=== PATIENT | female | born 1970 ===

== ENCOUNTER → 2020-06-17 14:59 | Outpatient (BNVA) | payer OTHER, SELFPAY | PROVIDERS: PCP Internal Medicine; Referring Provider Internal Medicine; Visit Provider Internal Medicine | DX: Z95.2 Presence of prosthetic heart valve (principal); Z51.81 Encounter for therapeutic drug level monitoring; Z79.01 Long term (current) use of anticoagulants | CPT/HCPCS: 85610; 99211 ==

== ENCOUNTER → 2020-06-25 08:27 | Outpatient (BNVA) | payer OTHER, SELFPAY | PROVIDERS: PCP Internal Medicine; Visit Provider Internal Medicine | DX: Z95.2 Presence of prosthetic heart valve (principal); Z51.81 Encounter for therapeutic drug level monitoring; Z79.01 Long term (current) use of anticoagulants | CPT/HCPCS: 85610; 99211 ==

== ENCOUNTER → 2020-07-09 09:57 | Outpatient (BNVA) | payer OTHER, SELFPAY | PROVIDERS: PCP Internal Medicine; Visit Provider Internal Medicine | DX: Z95.2 Presence of prosthetic heart valve (principal); Z51.81 Encounter for therapeutic drug level monitoring; Z79.01 Long term (current) use of anticoagulants | CPT/HCPCS: 85610; 99211 ==

== ENCOUNTER → 2020-07-23 07:59 | Outpatient (BNVA) | payer OTHER, SELFPAY | PROVIDERS: PCP Internal Medicine; Visit Provider Internal Medicine | DX: Z95.2 Presence of prosthetic heart valve (principal); Z51.81 Encounter for therapeutic drug level monitoring; Z79.01 Long term (current) use of anticoagulants | CPT/HCPCS: 85610; 99211 ==

== ENCOUNTER → 2020-07-29 07:44 | Outpatient (BNVA) | payer OTHER, SELFPAY | PROVIDERS: PCP Internal Medicine; Visit Provider Internal Medicine | DX: Z95.2 Presence of prosthetic heart valve (principal); Z51.81 Encounter for therapeutic drug level monitoring; Z79.01 Long term (current) use of anticoagulants | CPT/HCPCS: 85610; 99211 ==

== ENCOUNTER → 2020-08-27 07:46 | Outpatient (BNVA) | payer OTHER, SELFPAY | PROVIDERS: PCP Internal Medicine; Visit Provider Internal Medicine | DX: Z95.2 Presence of prosthetic heart valve (principal); Z51.81 Encounter for therapeutic drug level monitoring; Z79.01 Long term (current) use of anticoagulants | CPT/HCPCS: 85610; 99211 ==

== ENCOUNTER → 2020-09-03 09:10 | Outpatient (BNVA) | payer OTHER, SELFPAY | PROVIDERS: PCP Internal Medicine; Visit Provider Internal Medicine | DX: Z95.2 Presence of prosthetic heart valve (principal); Z51.81 Encounter for therapeutic drug level monitoring; Z79.01 Long term (current) use of anticoagulants | CPT/HCPCS: 85610; 99211 ==

== ENCOUNTER → 2020-09-10 07:49 | Outpatient (BNVA) | payer OTHER, SELFPAY | PROVIDERS: PCP Internal Medicine; Visit Provider Internal Medicine | DX: Z95.2 Presence of prosthetic heart valve (principal); Z51.81 Encounter for therapeutic drug level monitoring; Z79.01 Long term (current) use of anticoagulants | CPT/HCPCS: 85610; 99211 ==

== ENCOUNTER 2020-09-10 08:05 | Emergency (ER) | payer OTHER, SELFPAY ==
[2020-09-10 08:15] VITALS: BP 129/69; PULSE 76; RESP 18; TEMP 36.1; O2SAT 100; BMI 23.0
--- NOTE | 2020-09-10 09:25 | XR_ITS ---
EXAMINATION: XR CHEST CLINICAL INFORMATION: Intermittent chest pain. COMPARISON: None TECHNIQUE: 2 views of the chest were obtained. FINDINGS: No significant abnormality is noted involving the heart, lungs, mediastinum, bony thorax or soft tissues. XR/XR chest 2V IMPRESSION: No acute cardiopulmonary process.
--- NOTE | 2020-09-10 09:26 | ECG_ITS ---
Test Reason : CHEST PAIN Blood Pressure : / mmHG Vent. Rate : 078 BPM Atrial Rate : 078 BPM P-R Int : 148 ms QRS Dur : 086 ms QT Int : 378 ms P-R-T Axes : 000 068 026 degrees QTc Int : 430 ms Unusual P axis, possible ectopic atrial rhythm Voltage criteria for left ventricular hypertrophy Abnormal ECG When compared with ECG of 27-APR-2020 03:49, No significant changes seen Referred By: Kalli Smith Electronically Signed By:BILL HUMPHREY
[2020-09-10 10:03] LABS: Basophils Percent Auto 0.2 % (0-2); Eosinophils Absolute Auto 0.2 X10*3/uL (0.0-0.4); Eosinophils Percent Auto 4.3 % (0-4); Hematocrit 38.5 % (37-47); Hemoglobin 12.5 g/dl (12.0-16.0); Imm Gran Abs Auto 0.01 X10*3/uL (0.00-0.03); Imm Gran Pct Auto 0.2 % (0.0-0.4); Lymphocytes Absolute Auto 1.4 X10*3/uL (1.2-4.9); Lymphocytes Percent Auto 25.4 % (20-40); MANUAL DIFF FLAG NO; Mean Corpuscular HGB Conc 32.5 g/dl (31.0-35.0); Mean Corpuscular Hemoglobin 28.2 pg (27.0-33.0); Mean Corpuscular Volume 86.9 fL (80-98); Mean Platelet Volume 9.2 fL (9.4-12.3); Monocytes Absolute Auto 0.4 X10*3/uL (0.1-1.2); Monocytes Percent Auto 7.1 % (2-11); Neutrophils Absolute Auto 3.5 X10*3/uL (2.0-8.3); Neutrophils Percent Auto 62.8 % (45-73); Platelet Count 196 X10*3/uL (160-400); Red Blood Count 4.43 X10*6/uL (4.20-5.50); Red Cell Distribution Width 15.2 % (11.0-16.0); White Blood Count 5.6 X10*3/uL (4.8-10.8)
[2020-09-10 10:07] LABS: Appearance Urine CLEAR; Color Urine YELLOW; Glucose Urine UA NEG (NEG); Leukocyte Esterase Urine NEG (NEG); Nitrite Urine NEG (NEG); PH 6.5 (5.0-8.0); Specific Gravity - Urine 1.015 (1.005-1.025); Urine Blood TRACE (NEG); Urine Ketones NEG (NEG); Urine Protein NEG (NEG-TRACE)
[2020-09-10 10:12] LABS: INTERNATIONAL NORM RATIO 2.8 (0.9-1.1); Prothrombin Time 33.3 SEC (10.8-13.0)
[2020-09-10 10:15] LABS: Partial Thromboplastin Time 58.4 SEC (24.1-38.0)
[2020-09-10] MEDS: 0.9 % Sodium Chloride 1,000 ML 999 ML IVCONT (10:20)
[2020-09-10 10:39] LABS: B Type Natriuretic Peptide 67 pg/mL (<100); Troponin-I High Sensitivity < 3.5 ng/L (<3.5-17.0)
[2020-09-10 10:40] LABS: Mucus Urine 1+ /LPF; RBC Urine 0-2 /HPF (0); Squamous Epithelial Cell Urine 2+ /LPF; WBC Urine 0 /HPF (0-4)
[2020-09-10 10:41] LABS: Alanine Aminotransferase 29 U/L (0-31); Albumin Level 4.3 g/dL (3.5-5.0); Alkaline Phosphatase 98 U/L (39-117); Anion Gap 14 (12-20); Aspartate Amino Transferase 26 U/L (5-31); Bilirubin Direct 0.3 mg/dL (0.0-0.5); Bilirubin Total 0.7 mg/dL (0.0-1.0); Blood Urea Nitrogen 10 mg/dL (9-16); Calcium 8.8 mg/dL (8.4-10.2); Carbon Dioxide 22 mmol/L (22-29); Chloride 109 mmol/L (96-108); Creatinine Clr Calc Pharmacy 76.7; Estimated Glomerular Filt Rate > 60; Glucose Random 76 mg/dL (60-115); Magnesium 2.2 mg/dL (1.6-2.6); Sodium 141 mmol/L (135-145); Total Protein 7.3 g/dL (6.5-8.0)
[2020-09-10 10:48] VITALS: BP 127/63; PULSE 73
--- NOTE | 2020-09-10 10:58 | ED_ITS ---
HPI - Chest Pain General Chief Complaint: Chest Pain Stated Complaint: chest pain Time Seen by Provider: 09/10/20 09:16 Source: patient Mode of arrival: ambulatory Limitations: no limitations History of Present Illness HPI narrative: 50yoF c PMHx of DE, Mechanical heart valve on Coumadin, CVA, leukemia and Sjorgen's disease presenting to the ED c c/o intermittent left sided chest pain achy in sensation only last a few second which has occured 2-3 times since yesterday. Today it occurred while [facility] speaking to the nurse therefore they instructed her to come to the ER for further evaluation and treatment. Patient also reports 3 days ago she had an episode of dizziness while she was cleaning her house which resolved shortly after. Denies any other symptoms associated to the chest pain and dizziness. Related Data Previous Rx's Medication Instructions Recorded warfarin 5 mg tablet 5 mg PO DAILY #90 tab 06/17/20 Allergies Allergy/AdvReac Type Severity Reaction Status Date / Time cephalexin [From KEFLEX] Allergy Severe ANGIOEDEMA Verified 08/27/20 07:53 Penicillins [PCN] Allergy Severe DIFF Verified 08/27/20 07:53 BREATHING pilocarpine [PILOCARPINE] Allergy Severe DIFFICULTY Verified 08/27/20 07:53 BREATHING prochlorperazine Allergy Severe DIFFICULTY Verified 08/27/20 07:53 [From COMPAZINE] BREATHING Review of Systems Review of Systems: Constitutional : No Fever, No Chills, No Night Sweats, No Fatigue, No Malaise ENT/Mouth : No Ear Pain, No Nasal Congestion, No sore throat Eyes: No Eye Pain, No Swelling, No Vision Changes Cardiovascular : + Intermittent Chest pain, No SOB, no Dyspnea on Exertion, No Orthopnea, No Edema, No extremity swelling, No Palpitations Respiratory : No Cough, No Sputum, No Wheezing, No Dyspnea Gastrointestinal : No Nausea, No Vomiting, No Diarrhea, No abdominal Pain Genitourinary : No irregular bleeding, No Dysuria Musculoskeletal : No joint pain, No Myalgias, No Joint Swelling Skin : No Skin Lesions, No rash Neuro : No Weakness, No Numbness, No Paresthesias, No Loss of Consciousness, No Dizziness at this time, No Headache Yes all other systems are reviewed and are negative [facility] Past Medical History Attestation statement: The following information was validated with the patient. Medical History delivery delivered H/O Sjogren's disease Leukemia Myocardial infarct Stroke Surgical History History of heart surgery Social History Social History Advance Directives: No Advance Directives Information Provided: Yes Physical Exam Vital Signs: Vital Signs: Last Vital Signs Temp 96.9 F 09/10/20 08:15 Pulse 73 09/10/20 10:48 Resp 18 09/10/20 08:15 BP 127/63 09/10/20 10:48 Pulse Ox 100 09/10/20 08:15 Body Mass Index 23.0 vital signs have been reviewed as normal and appeared to be correct. Blood pr essure normal. Heart rate normal. Respiration rate normal. Temperature normal. Oxygen saturation normal. Appearance: Alert. Oriented X3. No acute distress. Head: Normal external exam. Normocephalic. Atraumatic. No Santo signs noted. No raccoon eyes noted Eyes: PERRLA. EOMI. Conjunctiva and sclera normal. Eyelids normal. ENT: EAC normal. TM's Normal. Pharynx normal. Uvula midline. Moist mucous membranes. Neck: Normal inspection. Neck supple. FROM. No adenopathy. No meningeal signs. CVS: Normal heart rate and rhythm. Heart sound normal. No murmurs noted. Pulses normal throughout. Respiratory: No respiratory distress. Painless inspiration. Breath sounds n ormal. No wheezes/rales/rhonchi noted. Chest nontender. No accessory muscle usage noted or decreased air movement noted. Abdomen: Soft and nontender. Bowel sounds normal in all 4 quadrants. No diste ntion noted. No organomegaly noted. No visible injury noted. Back: Full range of motion noted. Skin: Skin warm and dry. Normal skin color. Normal skin turgor. No rashes/lesions/lacerations noted. Extremities: No lower extremity edema. No calf tenderness. Extremities exhibit normal range of motion. Extremities nontender. Neuro: Oriented X 3. No motor deficit. No sensory deficit. Reflexes normal. Course Course Course Narrative: 9:25AM - 50yoF c PMHx of DE, Mechanical heart valve on Coumadin, CVA, leukemia and Sjorgen's disease presenting to the ED c c/o intermittent left sided chest pain achy in sensation only last a few second which has occured 2-3 times since yesterday and dizziness x 3 days ago resolved at this time. - Concern for DE vs muscular strain - Plan: Labs, 2 sets of Troponin, CXR, EKG then re-evaluated Reevaluation(s) Reevaluation #1: - All labs WNL. CXR WNL. EKG NSR no acute ischemic changes noted. - therefore repeat troponin For 12:54pm will re-evaluate then. Patient continues to be chest pain-free. Time: 11:12 Reevaluation #2: Repeat troponin less than 3.5 therefore negative delta and patient continues to be chest pain-free therefore will DC home with instructions to follow-up with cleat layer and PCP and to return if any new or worsening symptoms and to continue taking prescribed medications as previously prescribed. Patient and agrees the plan. Time: 13:48 [facility] - Chest Pain Medical Records Data Attestation: I reviewed the patient's medical records. Lab Data Attestation: I reviewed the patient's lab results. Result diagrams: 09/10/20 09:54 09/10/20 09:54 Labs: Lab Results 09/10/20 09/10/20 09/10/20 Range/Units 09:49 09:54 09:54 WBC 5.6 (4.8-10.8) X10*3/uL RBC 4.43 (4.20-5.50) X10*6/uL Hgb 12.5 (12.0-16.0) g/dl Hct 38.5 (37-47) % MCV 86.9 (80-98) fL MCH 28.2 (27.0-33.0) pg MCHC 32.5 (31.0-35.0) g/dl RDW 15.2 (11.0-16.0) % Plt Count 196 (160-400) X10*3/uL MPV 9.2 L (9.4-12.3) fL Immature Gran % (Auto) 0.2 (0.0-0.4) % Neut % (Auto) 62.8 (45-73) % Lymph % (Auto) 25.4 (20-40) % Bradley % (Auto) 7.1 (2-11) % Eos % (Auto) 4.3 H (0-4) % Baso % (Auto) 0.2 (0-2) % Lymph # (Auto) 1.4 (1.2-4.9) X10*3/uL Bradley # (Auto) 0.4 (0.1-1.2) X10*3/uL Eos # (Auto) 0.2 (0.0-0.4) X10*3/uL Baso # (Auto) 0.0 (0.0-0.2) X10*3/uL Abs Immat Gran (auto) 0.01 (0.00-0.03) X10*3/uL Absolute Neuts (auto) 3.5 (2.0-8.3) X10*3/uL Absolute Nucleated RBC 0.000 (0.0-0.012) X10*3/uL Nucleated RBC % (auto) 0.0 (0.0-0.2) /100WBC PT (10.8-13.0) SEC INR (0.9-1.1) APTT (24.1-38.0) SEC Sodium 141 (135-145) mmol/L Potassium 4.0 (3.3-5.1) mmol/l Chloride 109 H (96-108) mmol/L Carbon Dioxide 22 (22-29) mmol/L Anion Gap 14 (12-20) BUN 10 (9-16) mg/dL Creatinine 0.71 (0.5-1.4) mg/dL Estim Creat Clear Calc 76.7 Estimated GFR > 60 Random Glucose 76 (60-115) mg/dL Calcium 8.8 (8.4-10.2) mg/dL Magnesium 2.2 (1.6-2.6) mg/dL Total Bilirubin 0.7 (0.0-1.0) mg/dL Direct Bilirubin 0.3 (0.0-0.5) mg/dL AST 26 (5-31) U/L ALT 29 (0-31) U/L Alkaline Phosphatase 98 (39-117) U/L Troponin I High Sens (<3.5-17.0) ng/L B-Natriuretic Peptide (<100) pg/mL Total Protein 7.3 (6.5-8.0) g/dL Albumin 4.3 (3.5-5.0) g/dL Urine Color YELLOW Urine Appearance CLEAR Urine pH 6.5 (5.0-8.0) Ur Specific [place] 1.015 (1.005-1.025) Urine Protein NEG (NEG-TRACE) MG/DL Urine Glucose (UA) NEG (NEG) MG/DL Urine Ketones NEG (NEG) MG/DL Urine Blood TRACE (NEG) Urine Nitrite NEG (NEG) Ur Leukocyte Esterase NEG (NEG) Urine RBC 0-2 (0) /HPF Urine WBC 0 (0-4) /HPF Ur Squamous Epith Cells 2+ /LPF Urine Bacteria NONE /LPF Urine Mucus 1+ /LPF 09/10/20 09/10/20 09/10/20 Range/Units 09:54 09:55 12:41 WBC (4.8-10.8) X10*3/uL RBC (4.20-5.50) X10*6/uL Hgb (12.0-16.0) g/dl Hct (37-47) % MCV (80-98) fL MCH (27.0-33.0) pg MCHC (31.0-35.0) g/dl RDW (11.0-16.0) % Plt Count (160-400) X10*3/uL MPV (9.4-12.3) fL Immature Gran % (Auto) (0.0-0.4) % Neut % (Auto) (45-73) % Lymph % (Auto) (20-40) % Bradley % (Auto) (2-11) % Eos % (Auto) (0-4) % Baso % (Auto) (0-2) % Lymph # (Auto) (1.2-4.9) X10*3/uL Bradley # (Auto) (0.1-1.2) X10*3/uL Eos # (Auto) (0.0-0.4) X10*3/uL Baso # (Auto) (0.0-0.2) X10*3/uL Abs Immat Gran (auto) (0.00-0.03) X10*3/uL Absolute Neuts (auto) (2.0-8.3) X10*3/uL Absolute Nucleated RBC (0.0-0.012) X10*3/uL Nucleated RBC % (auto) (0.0-0.2) /100WBC PT 33.3 H (10.8-13.0) SEC INR 2.8 H (0.9-1.1) APTT 58.4 H (24.1-38.0) SEC Sodium (135-145) mmol/L Potassium (3.3-5.1) mmol/l Chloride (96-108) mmol/L Carbon Dioxide (22-29) mmol/L Anion Gap (12-20) BUN (9-16) mg/dL Creatinine (0.5-1.4) mg/dL Estim Creat Clear Calc Estimated GFR Random Glucose (60-115) mg/dL Calcium (8.4-10.2) mg/dL Magnesium (1.6-2.6) mg/dL Total Bilirubin (0.0-1.0) mg/dL Direct Bilirubin (0.0-0.5) mg/dL AST (5-31) U/L ALT (0-31) U/L Alkaline Phosphatase (39-117) U/L Troponin I High Sens < 3.5 < 3.5 (<3.5-17.0) ng/L B-Natriuretic Peptide 67 (<100) pg/mL Total Protein (6.5-8.0) g/dL Albumin (3.5-5.0) g/dL Urine Color Urine Appearance Urine pH (5.0-8.0) Ur Specific [place] (1.005-1.025) Urine Protein (NEG-TRACE) MG/DL Urine Glucose (UA) (NEG) MG/DL Urine Ketones (NEG) MG/DL Urine Blood (NEG) Urine Nitrite (NEG) Ur Leukocyte Esterase (NEG) Urine RBC (0) /HPF Urine WBC (0-4) /HPF Ur Squamous Epith Cells /LPF Urine Bacteria /LPF Urine Mucus /LPF Imaging Data Chest x-ray: Attestation: I personally reviewed and interpreted this imaging study as follows: Radiologist's impression: IMPRESSION: No acute cardiopulmonary process. ECG Data ECG #1: Attestation: I personally reviewed and interpreted this ECG as follows: ECG interpretation date: 09/10/20 ECG interpretation time: 08:27 Interpretation: Normal sinus rhythm with a ventricular rate of 78 within normal OR interval normal QRS duration normal QT/QTC interval. No acute i schemic changes noted. Discharge Plan Discharge Clinical Impression: Atypical chest pain Patient Disposition: Home, Self-Care Instructions: Chest Pain (ED) Additional Instructions: INR today was 2.8. Please follow-up with your primary care provider and your cleat layer and continue taking your previously prescribed medications as prescribed. Return if any new or worsening symptoms. Prescriptions: No Action warfarin 5 mg tablet 5 mg PO DAILY Qty: 90 RF: 0 Referrals: Tu Grande MD [Primary Care Provider] - 2 days Maksim Hyman MD [Physician] - 2 days Stand Alone Forms: Work/School Release Interventions: ED Discharge Assessment Last Done: 09/10/20 13:39 Discharge Date/Time: 09/10/20 13:39
[2020-09-10 13:16] LABS: Troponin-I High Sensitivity < 3.5 ng/L (<3.5-17.0)
== END 2020-09-10 13:39 | disposition home or self-care (01) ==
PROVIDERS: Physician Assistant Medical; Emergency Provider Emergency Medicine Emergency Medical Services; PCP Internal Medicine
DX: R07.89 Other chest pain (principal); Z86.73 Personal history of transient ischemic attack (TIA), and cerebral infarction without residual deficits; Z79.01 Long term (current) use of anticoagulants; Z79.899 Other long term (current) drug therapy
CPT/HCPCS: 36415; 71046; 80048; 80076; 81001; 81003; 83735; 83880; 84484; 85025; 85610; 85730; 93005; 96360; 99283; 99284

== ENCOUNTER → 2020-09-19 08:10 | Outpatient (BNVA) | payer OTHER, SELFPAY | PROVIDERS: PCP Internal Medicine; Visit Provider Internal Medicine | DX: Z95.2 Presence of prosthetic heart valve (principal); Z51.81 Encounter for therapeutic drug level monitoring; Z79.01 Long term (current) use of anticoagulants | CPT/HCPCS: 85610; 99211 ==

== ENCOUNTER 2020-10-09 17:27 | Emergency (ER) | payer OTHER, SELFPAY | END 2020-10-09 19:30 | disposition left against medical advice (07) | PROVIDERS: Emergency Provider Emergency Medicine | DX: Z51.81 Encounter for therapeutic drug level monitoring (principal); Z79.01 Long term (current) use of anticoagulants ==

== ENCOUNTER → 2020-10-11 08:06 | Outpatient (BNVA) | payer OTHER, SELFPAY | PROVIDERS: PCP Internal Medicine; Visit Provider Internal Medicine | DX: Z95.2 Presence of prosthetic heart valve (principal); Z51.81 Encounter for therapeutic drug level monitoring; Z79.01 Long term (current) use of anticoagulants | CPT/HCPCS: 85610; 99211 ==

== ENCOUNTER → 2020-10-14 08:37 | Outpatient (BNVA) | payer OTHER, SELFPAY | PROVIDERS: PCP Internal Medicine; Visit Provider Internal Medicine | DX: Z95.2 Presence of prosthetic heart valve (principal); Z51.81 Encounter for therapeutic drug level monitoring; Z79.01 Long term (current) use of anticoagulants | CPT/HCPCS: 85610; 99211 ==

== ENCOUNTER 2021-04-25 08:05 | Emergency (ER) | payer OTHER, SELFPAY ==
--- NOTE | ~2021-04-25 | XR_ITS ---
EXAMINATION: XR ELBOW, RIGHT CLINICAL INFORMATION: Right elbow pain, worse with extension COMPARISON: None TECHNIQUE: AP, lateral, and oblique views of the right elbow. FINDINGS: Bony mineralization appears normal. There is no fracture, dislocation, destructive process, or arthropathy. No joint narrowing or erosive change. No definite intracapsular effusion. No spurring from the epicondyles or olecranon. XR/XR elbow RT min 3V IMPRESSION: Unremarkable right elbow.
[2021-04-25 08:26] VITALS: BP 99/70; PULSE 80; RESP 18; TEMP 36.6; O2SAT 100; BMI 24.2
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
== END 2021-04-25 10:03 | disposition home or self-care (01) ==
PROVIDERS: Emergency Provider Emergency Medicine; PCP Internal Medicine
DX: S53.401A Unspecified sprain of right elbow, initial encounter (principal); M25.521 Pain in right elbow; X50.0XXA Overexertion from strenuous movement or load, initial encounter; Y93.9 Activity, unspecified; Y92.9 Unspecified place or not applicable; Y99.0 Civilian activity done for income or pay; Z79.899 Other long term (current) drug therapy; Z79.01 Long term (current) use of anticoagulants
CPT/HCPCS: 73080; 99282; 99283

== ENCOUNTER 2021-06-10 16:38 | Emergency (ER) | payer OTHER, SELFPAY ==
--- NOTE | ~2021-06-10 | CT_ITS ---
EXAMINATION: CT HEAD WITHOUT CONTRAST CLINICAL INFORMATION: Double vision. Concern for a stroke COMPARISON: CT head April 27, 2020 TECHNIQUE: Contiguous axial imaging was performed from the skull base to vertex without intravenous administration of contrast. Coronal and sagittal reformatted images are performed at the CT scanner This CT examination was performed using dose optimization techniques as appropriate, variously including the following: *Automated exposure control *Adjustment of mA and/or kV according to patient size (this includes techniques or standardized protocols for targeted exams where dose is matched to indication/reason for exam; i.e. extremities or head) *Use of iterative reconstruction technique DLP: 627 mGy-cm FINDINGS: There is no evidence of acute intracranial hemorrhage or territorial infarction. No abnormal mass effect or midline shift is seen. [place] to white matter differentiation is well preserved. No extra-axial fluid collections are identified. The ventricles are normal in size. There is no abnormal attenuation within the brain parenchyma. The osseous structures and soft tissues are normal. There is moderate scattered sinus mucosal thickening in the ethmoid sinuses bilateral. The mastoid air cells and middle ear cavities are normally aerated. CT/CT head/brain wo con IMPRESSION: No acute intracranial pathology.
--- NOTE | ~2021-06-10 | MR_ITS ---
EXAMINATION: MR BRAIN WITHOUT CONTRAST CLINICAL INFORMATION: Double vision. Occipital stroke. COMPARISON: CT head from 06/10/2021. TECHNIQUE: MRI of the brain was obtained using routine sequences without contrast. FINDINGS: No focal restricted diffusion is demonstrated to suggest acute or subacute cerebral ischemia. No evidence of acute or chronic hemorrhagic products on heme-sensitive imaging. Scattered periventricular and deep white matter T2 FLAIR hyperintensities. Multiple chronic lacunar infarcts of the cerebellum. The ventricles are normal in morphology and size. No abnormal mass effect. No midline shift. Normal appearance of the pituitary gland. Normal positioning of the cerebellar tonsils. Normal arterial and venous vascular flow voids are present. Normal, homogeneous marrow signal. Fatty atrophy of the left parotid gland. Moderate mucosal thickening of the paranasal sinuses. No signal abnormalities within the mastoids. MR/MR head/brain wo con IMPRESSION: 1. No acute intracranial abnormalities. 2. Multiple chronic lacunar infarcts of the cerebellum. Nonspecific white matter changes most commonly seen with mild underlying microangiopathy.
--- NOTE | ~2021-06-10 | XR_ITS ---
EXAMINATION: XR CHEST CLINICAL INFORMATION: Stroke like symptoms COMPARISON: Chest x-ray on 09/10/2020 TECHNIQUE: Frontal view of the chest was obtained. FINDINGS: No significant abnormality is noted involving the heart, lungs, mediastinum, bony thorax or soft tissues. There is been prior median sternotomy. There is an aortic valve replacement. XR/XR chest 1V IMPRESSION: No acute disease.
[2021-06-10 16:56] VITALS: BP 145/69; PULSE 74; RESP 16; TEMP 36.7; O2SAT 99; BMI 23.7
[2021-06-10 17:49] VITALS: BP 169/76; PULSE 75; RESP 16; O2SAT 99
--- NOTE | 2021-06-10 17:52 | ECG_ITS ---
Test Reason : NEURO SYMPTOMS Blood Pressure : / mmHG Vent. Rate : 071 BPM Atrial Rate : 071 BPM P-R Int : 156 ms QRS Dur : 090 ms QT Int : 410 ms P-R-T Axes : 038 055 045 degrees QTc Int : 445 ms Normal sinus rhythm Minimal voltage criteria for LVH, may be normal variant Borderline ECG When compared with ECG of 10-SEP-2020 08:27, Sinus rhythm has replaced Ectopic atrial rhythm Referred By: Myra Novoa Electronically Signed By:MARV GARCIA
--- NOTE | 2021-06-10 17:57 | ED_ITS ---
HPI - Neuro Symptoms/Deficit General Chief Complaint: Neuro Symptoms/Deficit Stated Complaint: Double vision Time Seen by Provider: 06/10/21 17:52 Source: patient Mode of arrival: ambulatory Limitations: no limitations History of Present Illness HPI Narrative: 51-year-old female came in for evaluation of double vision. Symptoms started 3 days ago as a double vision patient could not tell with which eye, symptoms is intermittent comes and goes, no relieving factor, no worsening Factor, associated with headache but no speech issue, no weakness, no numbness. Patient stated that the symptoms started 3 days ago and a half, have been today while she is in the waiting room waiting to be seen. Now patient is asympt omatic Related Data Home Medications Medication Instructions Recorded Confirmed hydroxyzine HCl 50 mg tablet mg PO 10/14/20 10/14/20 metoprolol succinate 50 mg 50 mg PO DAILY 10/14/20 10/14/20 tablet,extended release 24 hr nilotinib 150 mg capsule 300 mg PO BID 10/14/20 10/14/20 Previous Rx's Medication Instructions Recorded warfarin 5 mg tablet 5 mg PO DAILY #90 tab 06/17/20 acetaminophen 300 mg-codeine 30 mg 1 tab PO Q8H PRN #10 tab 04/25/21 tablet lidocaine HCl 4 % topical cream 1 appl TOPICAL BID PRN #120 g 04/25/21 (Aspercreme (lidocaine HCl)) Allergies Allergy/AdvReac Type Severity Reaction Status Date / Time cephalexin [From KEFLEX] Allergy Severe ANGIOEDEMA Verified 10/11/20 08:09 Penicillins [PCN] Allergy Severe DIFF Verified 10/11/20 08:09 BREATHING pilocarpine [PILOCARPINE] Allergy Severe DIFFICULTY Verified 10/11/20 08:09 BREATHING prochlorperazine Allergy Severe DIFFICULTY Verified 10/11/20 08:09 [From COMPAZINE] BREATHING Review of Systems Review of Systems: All other systems are reviewed and are negative Constitutional: Reports as per HPI and Reports no additional constitutional complaints Eyes: Reports as per HPI and Reports no additional eye complaints Reports system reviewed and no additional complaints, except as documented Cardiovascular: Reports as per HPI and Reports no additional cardiovascular complaints Respiratory: Reports as per HPI and Reports no additional respiratory complaints Gastrointestinal: Reports as per HPI and Reports no additional gastrointestinal complaints Genitourinary: Reports no additional female genitourinary complaints Musculoskeletal: Reports no additional musculoskeletal complaints Skin/Breast: Reports system reviewed and no additional complaints, except as docu Psychiatric: Reports no additional psychiatric complaints Endocrine: Reports no additional endocrine complaints Hematologic/Lymphatic: Reports no additional hematologic/lymphatic complaints Allergic/Immunologic: Reports no additional allergic/immunologic complaints Reports system reviewed and no additional complaints, except as documented and Reports Abnormal speech present [facility] Past Medical History Medical History delivery delivered H/O Sjogren's disease Leukemia Myocardial infarct Stroke Surgical History History of heart surgery Social History Social History Patient Tobacco Use Status: Former Tobacco user Advance Directives: No Advance Directives Information Provided: No Patient : No Physical Exam Vital Signs: Vital Signs: Last Vital Signs Temp 98.0 F 06/10/21 16:56 Pulse 70 06/10/21 20:00 Resp 16 06/10/21 20:00 BP 135/69 06/10/21 20:00 Pulse Ox 100 06/10/21 20:00 Body Mass Index 23.7 Vital signs have been reviewed as appeared to be correct. Blood pressure elevated. Heart rate normal. Respiration rate normal. Temperature normal. Oxygen saturation normal. Appearance: Alert. Oriented X3. No acute distress. Head: Normal external exam. Normocephalic. Atraumatic. No [place] signs noted. No raccoon eyes noted Eyes: PERRLA. EOMI. Conjunctiva and sclera normal. Eyelids normal. Visual acuity is 20/25 on right, 20/25 on the left. IOP 13 in the right, IOP 12 on the left. ENT: TM's Normal. Pharynx normal. Uvula midline. Moist mucous membranes. No trismus noted. No drooling noted. No muffled voice noted. Neck: Normal inspection. Neck supple. FROM. No adenopathy. Thyroid Normal. No meningeal signs. No neck mass noted. CVS: Normal heart rate and rhythm. Heart sound normal. No murmurs noted. Pulses normal throughout. Respiratory: No respiratory distress. Painless inspiration. Breath sounds normal. No wheezes/rales/rhonchi noted. Chest nontender. No accessory muscle usage noted or decreased air movement noted. Abdomen: Soft and nontender. Bowel sounds normal in all 4 quadrants. No distention noted. No organomegaly noted. No visible injury noted. Back: No CVA tenderness. Full range of motion noted. Skin: Skin warm and dry. Normal skin color. Normal skin turgor. No rashes/lesions/lacerations noted. Extremities: No lower extremity edema. Extremities exhibit normal range of motion. Extremities nontender. Neuro: Oriented X 3. Cranial nerve exam: II-XII are grossly intact No motor deficit. No sensory deficit. Reflexes normal. Course Course Course Narrative: Assessment and plan. 51-year-old female came in with symptoms of intermittent diplopia for the past 3 days. There was no symptoms while patient in the ED, unremarkable eye exam/neuro exam, patient had a CT of the head and MRI of the head which showed no acute stroke. Patient with normal IOP glaucoma is not likely. Patient will be referred to Ophthalmology for further eye exam. MDM - Neuro Symptoms/Deficit Medical Records Attestation: I reviewed the patient's medical records. Lab Data Attestation: I reviewed the patient's lab results. Result diagrams: 06/10/21 19:48 06/10/21 19:48 Labs: Lab Results 06/10/21 06/10/21 06/10/21 Range/Units 19:48 19:48 19:48 WBC 5.7 (4.8-10.8) X10*3/uL RBC 4.01 L (4.20-5.50) X10*6/uL Hgb 11.2 L (12.0-16.0) g/dl Hct 33.7 L (37-47) % MCV 84.0 (80-98) fL MCH 27.9 (27.0-33.0) pg MCHC 33.2 (31.0-35.0) g/dl RDW 16.7 H (11.0-16.0) % Plt Count 219 (160-400) X10*3/uL MPV 9.4 (9.4-12.3) fL Immature Gran % (Auto) 0.2 (0.0-0.4) % Neut % (Auto) 56.1 (45-73) % Lymph % (Auto) 28.7 (20-40) % [place] % (Auto) 8.1 (2-11) % Eos % (Auto) 6.5 H (0-4) % Baso % (Auto) 0.4 (0-2) % Lymph # (Auto) 1.6 (1.2-4.9) X10*3/uL [place] # (Auto) 0.5 (0.1-1.2) X10*3/uL Eos # (Auto) 0.4 (0.0-0.4) X10*3/uL Baso # (Auto) 0.0 (0.0-0.2) X10*3/uL Abs Immat Gran (auto) 0.01 (0.00-0.03) X10*3/uL Absolute Neuts (auto) 3.2 (2.0-8.3) X10*3/uL Absolute Nucleated RBC 0.000 (0.0-0.012) X10*3/uL Nucleated RBC % (auto) 0.0 (0.0-0.2) /100WBC Sodium 141 (135-145) mmol/L Potassium 4.0 (3.3-5.1) mmol/L Chloride 109 H (96-108) mmol/L Carbon Dioxide 22 (22-29) mmol/L Anion Gap 14 (12-20) BUN 10 (9-16) mg/dL Creatinine 0.71 (0.5-1.4) mg/dL Estim Creat Clear Calc 75.7 Estimated GFR > 60 Random Glucose 87 (60-115) mg/dL Calcium 8.8 (8.4-10.2) mg/dL Total Bilirubin 0.6 (0.0-1.0) mg/dL Direct Bilirubin 0.2 (0.0-0.5) mg/dL AST 31 (5-31) U/L ALT 42 H (0-31) U/L Alkaline Phosphatase 126 H D (39-117) U/L Troponin I High Sens < 3.5 (<3.5-17.0) ng/L Total Protein 7.0 (6.5-8.0) g/dL Albumin 4.1 (3.5-5.0) g/dL Lipase 40 (8-78) U/L Imaging Data Chest x-ray: Radiologist's impression: No acute disease. Head CT: Radiologist's impression: No acute intracranial pathology. Brain MRI: Radiologist's impression: 1. No acute intracranial abnormalities. 2. Multiple chronic lacunar infarcts of the cerebellum. Nonspecific white matter changes most commonly seen with mild underlying microangiopathy. ECG Data Interpretation: Normal sinus rhythm at 71 beats per minutes, LVH, normal axis deviation, normal intervals. NIH Stroke Scale Level of Consciousness: Alert Level of Consciousness Questions: Answers both questions correctly Level of Consciousness Commands: Performs both tasks correctly Best Gaze: Normal Visual: No visual loss Facial Palsy: Normal Motor Arm (Right): No drift Motor Arm (Left): No drift Motor Leg (Right): No drift Motor Leg (Left): No drift Limb Ataxia: Absent Sensory: Normal Best Language: No aphasia Dysarthia: Normal Extinction and Inattention: No abnormality Score: 0 Discharge Plan Discharge Clinical Impression: Diplopia Patient Disposition: Home, Self-Care Instructions: Diplopia (ED) Prescriptions: No Action warfarin 5 mg tablet 5 mg PO DAILY Qty: 90 RF: 0 lidocaine HCl [Aspercreme (lidocaine HCl)] 4 % cream 1 appl topical BID PRN (Reason: pain) Qty: 120 RF: 0 acetaminophen-codeine 300-30 mg tablet 1 tab PO Q8H PRN (Reason: pain) Qty: 10 RF: 0 Tasigna 150 mg capsule 300 mg PO BID RF: 0 hydroxyzine HCl 50 mg tablet PO RF: 0 metoprolol succinate 50 mg tablet extended release 24 hr 50 mg PO DAILY RF: 0 Referrals: Calvin Garcia [Physician] - 2 days
[2021-06-10] MEDS: Tetracaine HCl/PF 0.5% Oph Sol 4 ML DROPS 1 DROP EYE-BOTH (18:25)
[2021-06-10] MEDS: Ondansetron ODT 4 MG TAB.RAPDIS TRANSLINGU (18:38)
[2021-06-10 19:54] LABS: MANUAL DIFF FLAG NO
[2021-06-10 19:55] LABS: Basophils Percent Auto 0.4 % (0-2); Eosinophils Absolute Auto 0.4 X10*3/uL (0.0-0.4); Eosinophils Percent Auto 6.5 % (0-4); Hematocrit 33.7 % (37-47); Hemoglobin 11.2 g/dl (12.0-16.0); Imm Gran Abs Auto 0.01 X10*3/uL (0.00-0.03); Imm Gran Pct Auto 0.2 % (0.0-0.4); Lymphocytes Absolute Auto 1.6 X10*3/uL (1.2-4.9); Lymphocytes Percent Auto 28.7 % (20-40); Mean Corpuscular HGB Conc 33.2 g/dl (31.0-35.0); Mean Corpuscular Hemoglobin 27.9 pg (27.0-33.0); Mean Platelet Volume 9.4 fL (9.4-12.3); Monocytes Absolute Auto 0.5 X10*3/uL (0.1-1.2); Monocytes Percent Auto 8.1 % (2-11); Neutrophils Absolute Auto 3.2 X10*3/uL (2.0-8.3); Neutrophils Percent Auto 56.1 % (45-73); Platelet Count 219 X10*3/uL (160-400); Red Blood Count 4.01 X10*6/uL (4.20-5.50); Red Cell Distribution Width 16.7 % (11.0-16.0); White Blood Count 5.7 X10*3/uL (4.8-10.8)
[2021-06-10 20:00] VITALS: BP 135/69; PULSE 70; RESP 16; O2SAT 100
[2021-06-10 20:14] LABS: Troponin-I High Sensitivity < 3.5 ng/L (<3.5-17.0)
[2021-06-10 20:27] LABS: Alanine Aminotransferase 42 U/L (0-31); Albumin Level 4.1 g/dL (3.5-5.0); Alkaline Phosphatase 126 U/L (39-117); Anion Gap 14 (12-20); Aspartate Amino Transferase 31 U/L (5-31); Bilirubin Direct 0.2 mg/dL (0.0-0.5); Bilirubin Total 0.6 mg/dL (0.0-1.0); Blood Urea Nitrogen 10 mg/dL (9-16); Calcium 8.8 mg/dL (8.4-10.2); Carbon Dioxide 22 mmol/L (22-29); Chloride 109 mmol/L (96-108); Creatinine Clr Calc Pharmacy 75.7; Estimated Glomerular Filt Rate > 60; Glucose Random 87 mg/dL (60-115); Lipase 40 U/L (8-78); Sodium 141 mmol/L (135-145)
[2021-06-10 21:05] LABS: Appearance Urine CLEAR; Color Urine STRAW; Glucose Urine UA NEG (NEG); Leukocyte Esterase Urine NEG (NEG); Nitrite Urine NEG (NEG); Specific Gravity - Urine <= 1.005 (1.005-1.025); Urine Blood NEG (NEG); Urine Ketones NEG (NEG); Urine Protein NEG (NEG-TRACE)
== END 2021-06-10 21:41 | disposition home or self-care (01) ==
PROVIDERS: Emergency Provider Emergency Medicine
DX: H53.2 Diplopia (principal); R29.700 NIHSS score 0; Z79.899 Other long term (current) drug therapy; Z87.891 Personal history of nicotine dependence
CPT/HCPCS: 36415; 70450; 70551; 71045; 80048; 80076; 81003; 83690; 84484; 85025; 93005; 99285

== ENCOUNTER 2021-07-16 14:41 | Emergency (ER) | payer OTHER, SELFPAY ==
--- NOTE | ~2021-07-16 | CT_ITS ---
EXAMINATION: CT HEAD WITHOUT CONTRAST CLINICAL INFORMATION: Headache. On Coumadin. COMPARISON: Multiple prior studies. Most recent exam CT head June 02, 2021. MRI head June 10, 2021 TECHNIQUE: Contiguous axial imaging was performed from the skull base to vertex without intravenous administration of contrast. Coronal and sagittal reformatted images are performed at the CT scanner. [This CT examination was performed using dose optimization techniques as appropriate, variously including the following: *Automated exposure control *Adjustment of mA and/or kV according to patient size (this includes techniques or standardized protocols for targeted exams where dose is matched to indication/reason for exam; i.e. extremities or head) *Use of iterative reconstruction technique] DLP: 614 mGy-cm. FINDINGS: There is no evidence of acute intracranial hemorrhage or acute territorial infarction. Stable chronic old infarct in the right cerebellar hemisphere. Stable small chronic lacunar infarct in the left caudate lobe. No abnormal mass-effect or midline shift is seen. [place] to white matter differentiation is well preserved. No extra-axial fluid collections are identified. The ventricles are normal in size. There is no abnormal attenuation within the brain parenchyma. There is no osseous abnormality. The mastoid air cells and visualized portions of the paranasal sinuses are well-aerated. CT/CT head/brain wo con IMPRESSION: No acute intracranial pathology.
[2021-07-16 15:23] VITALS: BP 143/64; PULSE 98; RESP 18; TEMP 36.6; O2SAT 100; BMI 26.7
--- NOTE | 2021-07-16 21:04 | ED_ITS ---
HPI - General Adult General Chief complaint: General Medical Stated complaint: headache, body ache, rash Time Seen by Provider: 07/16/21 20:41 Source: patient Mode of arrival: ambulatory Limitations: no limitations History of Present Illness HPI narrative: Patient comes emergency room complaining of a headache since 15:00, 6 hours ago. Patient has not taking any medication for the headache. Patient is known to be on Coumadin. Patient also states that she noticed and rash in her lower extremities starting today, also complaining of a mole that has been in her back for several years, but recently has become painful to touch, no bleeding, no change in size. Related Data Home Medications Medication Instructions Recorded Confirmed hydroxyzine HCl 50 mg tablet mg PO 10/14/20 10/14/20 metoprolol succinate 50 mg 50 mg PO DAILY 10/14/20 10/14/20 tablet,extended release 24 hr nilotinib 150 mg capsule 300 mg PO BID 10/14/20 10/14/20 Previous Rx's Medication Instructions Recorded warfarin 5 mg tablet 5 mg PO DAILY #90 tab 06/17/20 acetaminophen 300 mg-codeine 30 mg 1 tab PO Q8H PRN #10 tab 04/25/21 tablet lidocaine HCl 4 % topical cream 1 appl TOPICAL BID PRN #120 g 04/25/21 (Aspercreme (lidocaine HCl)) Allergies Allergy/AdvReac Type Severity Reaction Status Date / Time cephalexin [From KEFLEX] Allergy Severe ANGIOEDEMA Verified 10/11/20 08:09 Penicillins [PCN] Allergy Severe DIFF Verified 10/11/20 08:09 BREATHING pilocarpine [PILOCARPINE] Allergy Severe DIFFICULTY Verified 10/11/20 08:09 BREATHING prochlorperazine Allergy Severe DIFFICULTY Verified 10/11/20 08:09 [From COMPAZINE] BREATHING Review of Systems Review of Systems: Constitutional : No Weight loss, No Fever, No Chills, No Night Sweats, complaining of fatigue ENT/Mouth : No Hearing loss, No Ear Pain, No Nasal Congestion, No Sinus Pain, No Hoarseness, No sore throat, No Rhinorrhea, No Swallowing Difficulty Eyes: No Eye Pain, No Swelling, No Redness, No Foreign Body, No Discharge, No Vision Changes Cardiovascular : No Chest Pain, No SOB, No Dyspnea on Exertion, No Orthopnea, No Edema, No Palpitations Respiratory : No Cough, No Sputum, No Wheezing, No Smoke Exposure, No Dyspnea Gastrointestinal : Complaining ofNausea, No Vomiting, No Diarrhea, No Constipation, No abdominal Pain, No Hematochezia, No Melena Genitourinary : no irregular bleeding, No Dysuria, No Urinary Frequency, No Hematuria, No Urinary Incontinence, No Urgency, No Flank Pain, No Urinary Flow Changes, No Hesitancy Musculoskeletal : No joint pain, No Myalgias, No Joint Swelling Skin : Scan tech in the back of the neck painful to touch, lower extremity itchiness in patches over the shins Neuro : No Weakness, No Numbness, No Paresthesias, No Loss of Consciousness, No Dizziness, No Headache Psych : No Anxiety/Panic, No Depression, No SI/HI/AH/VH, No Social Issues, Heme/Lymph: No Bruising, No Bleeding,No Lymphadenopathy Endocrine : No Polyuria, No Polydipsia, No Temperature Intolerance PMFSH Past Medical History Medical History delivery delivered H/O Sjogren's disease Leukemia Myocardial infarct Stroke Surgical History History of heart surgery Social History Social History Patient Tobacco Use Status: Former Tobacco user Advance Directives: No Advance Directives Information Provided: Yes Physical Exam Vital Signs: Vital Signs: Last Vital Signs Temp 98 F 07/16/21 15:23 Pulse 98 07/16/21 15:23 Resp 18 07/16/21 15:23 BP 143/64 H 07/16/21 15:23 Pulse Ox 100 07/16/21 15:23 Body Mass Index 26.7 Const: Other: Appearance: Alert. Oriented X3. No acute distress. Eyes: Pupils equal, round and reactive to light. ENT: Pharynx normal. Neck: Normal inspection. Neck supple. No lymph nodes noted. No crepitus CVS: Normal heart rate and rhythm. Pulses normal. Normal S1 and S2 Respiratory: No respiratory distress. Breath sounds normal. No Wheezing. No rales Abdomen: Soft and nontender. No rigidity. No distention. good BS x4 Skin: Skin warm and dry. In the shins patient has approximately 3 cm in diameter circular erythematous patch, itchy, no signs of cellulitis. In the back of the neck patient has a skin tag that has been bothering her. No signs of infection. Extremities: No lower extremity edema. No Lacerations. No Rash Neuro: Oriented X 3. No motor deficit. No sensory deficit. Moving all extermities. No slurred speech. Course Course Course Narrative: Discussed with the patient that she can follow up with her primary care physician about her skin tag in the neck, as she may need bands versus freezing treatment. Patient likely having a viral syndrome. COVID test negative. Head CT negative. I discussed with the patient that her INR is supratherapeutic. Patient states that she has an appointment at the INR clinic tomorrow. Patient instructed not to take any warfarin until she is seen tomorrow. Medical Decision Making Lab Data Result diagrams: 07/16/21 21:07 07/16/21 21:07 Labs: Lab Results 07/16/21 07/16/21 07/16/21 Range/Units 21:07 21:07 21:07 WBC 5.4 (4.8-10.8) X10*3/uL RBC 4.32 (4.20-5.50) X10*6/uL Hgb 12.0 (12.0-16.0) g/dl Hct 37.3 (37.0-47.0) % MCV 86.3 (80.0-98.0) fL MCH 27.8 (27.0-33.0) pg MCHC 32.2 (31.0-35.0) g/dl RDW 15.7 (11.0-16.0) % Plt Count 229 (160-400) X10*3/uL MPV 9.2 L (9.4-12.3) fL Immature Gran % (Auto) 0.2 (0.0-0.4) % Neut % (Auto) 57.7 (45-73) % Lymph % (Auto) 25.6 (20-40) % [place] % (Auto) 8.9 (2-11) % Eos % (Auto) 7.4 H (0-4) % Baso % (Auto) 0.2 (0-2) % Lymph # (Auto) 1.4 (1.2-4.9) X10*3/uL [place] # (Auto) 0.5 (0.1-1.2) X10*3/uL Eos # (Auto) 0.4 (0.0-0.4) X10*3/uL Baso # (Auto) 0.0 (0.0-0.2) X10*3/uL Abs Immat Gran (auto) 0.01 (0.00-0.03) X10*3/uL Absolute Neuts (auto) 3.13 (2.0-8.3) x10*3/uL Absolute Nucleated RBC 0.000 (0.0-0.012) X10*3/uL Nucleated RBC % (auto) 0.0 (0.0-0.2) /100WBC PT 63.6 H (9.9-13.0) SEC INR 5.4 H* (0.9-1.1) Sodium 141 (135-145) mmol/L Potassium 3.5 (3.3-5.1) mmol/L Chloride 107 (96-108) mmol/L Carbon Dioxide 29 (22-29) mmol/L Anion Gap 9 L (12-20) BUN 8 L (9-16) mg/dL Creatinine 0.79 (0.5-1.4) mg/dL Estim Creat Clear Calc 76.4 Estimated GFR > 60 Random Glucose 91 (60-115) mg/dL Calcium 9.0 (8.4-10.2) mg/dL Total Bilirubin 0.9 (0.0-1.0) mg/dL Direct Bilirubin 0.3 (0.0-0.5) mg/dL AST 21 (5-31) U/L ALT 10 (0-31) U/L Alkaline Phosphatase 89 D (39-117) U/L Total Protein 7.0 (6.5-8.0) g/dL Albumin 4.3 (3.5-5.0) g/dL COVID-19 (MARÍA) (Negative) COVID-19 Clin Com 07/16/21 Range/Units 22:27 WBC (4.8-10.8) X10*3/uL RBC (4.20-5.50) X10*6/uL Hgb (12.0-16.0) g/dl Hct (37.0-47.0) % MCV (80.0-98.0) fL MCH (27.0-33.0) pg MCHC (31.0-35.0) g/dl RDW (11.0-16.0) % Plt Count (160-400) X10*3/uL MPV (9.4-12.3) fL Immature Gran % (Auto) (0.0-0.4) % Neut % (Auto) (45-73) % Lymph % (Auto) (20-40) % [place] % (Auto) (2-11) % Eos % (Auto) (0-4) % Baso % (Auto) (0-2) % Lymph # (Auto) (1.2-4.9) X10*3/uL [place] # (Auto) (0.1-1.2) X10*3/uL Eos # (Auto) (0.0-0.4) X10*3/uL Baso # (Auto) (0.0-0.2) X10*3/uL Abs Immat Gran (auto) (0.00-0.03) X10*3/uL Absolute Neuts (auto) (2.0-8.3) x10*3/uL Absolute Nucleated RBC (0.0-0.012) X10*3/uL Nucleated RBC % (auto) (0.0-0.2) /100WBC PT (9.9-13.0) SEC INR (0.9-1.1) Sodium (135-145) mmol/L Potassium (3.3-5.1) mmol/L Chloride (96-108) mmol/L Carbon Dioxide (22-29) mmol/L Anion Gap (12-20) BUN (9-16) mg/dL Creatinine (0.5-1.4) mg/dL Estim Creat Clear Calc Estimated GFR Random Glucose (60-115) mg/dL Calcium (8.4-10.2) mg/dL Total Bilirubin (0.0-1.0) mg/dL Direct Bilirubin (0.0-0.5) mg/dL AST (5-31) U/L ALT (0-31) U/L Alkaline Phosphatase (39-117) U/L Total Protein (6.5-8.0) g/dL Albumin (3.5-5.0) g/dL COVID-19 (MAR[facility]A) Negative (Negative) COVID-19 Clin Com See Note Imaging Data CT scan - head: Radiologist's impression: FINDINGS: There is no evidence of acute intracranial hemorrhage or acute territorial infarction. Stable chronic old infarct in the right cerebellar hemisphere. Stable small chronic lacunar infarct in the left caudate lobe. No abnormal mass-effect or midline shift is seen. [place] to white matter differentiation is well preserved. No extra-axial fluid collections are identified. The ventricles are normal in size. There is no abnormal attenuation within the brain parenchyma. There is no osseous abnormality. The mastoid air cells and visualized portions of the paranasal sinuses are well-aerated. ? CT/CT head/brain wo con IMPRESSION: No acute intracranial pathology. ? Discharge Plan Discharge Clinical Impression: Acute viral syndrome, Headache, Dermatitis, Supratherapeutic INR Patient Disposition: Home, Self-Care Instructions: Elevated INR (ED), Acute Headache (ED) Additional Instructions: Please follow-up with your primary care physician tomorrow. If you have any worsening or new symptoms, please return to the emergency room or call 911 Prescriptions: No Action warfarin 5 mg tablet 5 mg PO DAILY Qty: 90 RF: 0 lidocaine HCl [Aspercreme (lidocaine HCl)] 4 % cream 1 appl topical BID PRN (Reason: pain) Qty: 120 RF: 0 acetaminophen-codeine 300-30 mg tablet 1 tab PO Q8H PRN (Reason: pain) Qty: 10 RF: 0 Tasigna 150 mg capsule 300 mg PO BID RF: 0 hydroxyzine HCl 50 mg tablet PO RF: 0 metoprolol succinate 50 mg tablet extended release 24 hr 50 mg PO DAILY RF: 0 Stand Alone Forms: Work/School Release
[2021-07-16 21:11] LABS: MANUAL DIFF FLAG NO
[2021-07-16 21:13] LABS: Basophils Percent Auto 0.2 % (0-2); Eosinophils Absolute Auto 0.4 X10*3/uL (0.0-0.4); Eosinophils Percent Auto 7.4 % (0-4); Hematocrit 37.3 % (37.0-47.0); Imm Gran Abs Auto 0.01 X10*3/uL (0.00-0.03); Imm Gran Pct Auto 0.2 % (0.0-0.4); Lymphocytes Absolute Auto 1.4 X10*3/uL (1.2-4.9); Lymphocytes Percent Auto 25.6 % (20-40); Mean Corpuscular HGB Conc 32.2 g/dl (31.0-35.0); Mean Corpuscular Hemoglobin 27.8 pg (27.0-33.0); Mean Corpuscular Volume 86.3 fL (80.0-98.0); Mean Platelet Volume 9.2 fL (9.4-12.3); Monocytes Absolute Auto 0.5 X10*3/uL (0.1-1.2); Monocytes Percent Auto 8.9 % (2-11); Neutrophils Absolute Auto 3.13 x10*3/uL (2.0-8.3); Neutrophils Percent Auto 57.7 % (45-73); Platelet Count 229 X10*3/uL (160-400); Red Blood Count 4.32 X10*6/uL (4.20-5.50); Red Cell Distribution Width 15.7 % (11.0-16.0); White Blood Count 5.4 X10*3/uL (4.8-10.8)
[2021-07-16 21:25] LABS: Prothrombin Time 63.6 SEC (9.9-13.0)
[2021-07-16 21:31] LABS: INTERNATIONAL NORM RATIO 5.4 (0.9-1.1)
[2021-07-16 21:43] LABS: Alanine Aminotransferase 10 U/L (0-31); Albumin Level 4.3 g/dL (3.5-5.0); Alkaline Phosphatase 89 U/L (39-117); Anion Gap 9 (12-20); Aspartate Amino Transferase 21 U/L (5-31); Bilirubin Direct 0.3 mg/dL (0.0-0.5); Bilirubin Total 0.9 mg/dL (0.0-1.0); Blood Urea Nitrogen 8 mg/dL (9-16); Carbon Dioxide 29 mmol/L (22-29); Chloride 107 mmol/L (96-108); Creatinine Clr Calc Pharmacy 76.4; Estimated Glomerular Filt Rate > 60; Glucose Random 91 mg/dL (60-115); Potassium 3.5 mmol/L (3.3-5.1); Sodium 141 mmol/L (135-145)
[2021-07-16 22:00] VITALS: BP 140/81; PULSE 98; RESP 18; TEMP 36.6; O2SAT 100
[2021-07-16 22:46] LABS: COVID-19 Test Negative (Negative); IDNOW Serial# 9DD0AD1C
== END 2021-07-16 23:12 | disposition home or self-care (01) ==
PROVIDERS: Emergency Medicine; Emergency Provider Emergency Medicine; PCP Internal Medicine
DX: B34.9 Viral infection, unspecified (principal); R51.9 Headache, unspecified; L30.9 Dermatitis, unspecified; R79.1 Abnormal coagulation profile; Z86.73 Personal history of transient ischemic attack (TIA), and cerebral infarction without residual deficits; I25.2 Old myocardial infarction; Z79.01 Long term (current) use of anticoagulants; Z20.822 Contact with and (suspected) exposure to COVID-19
CPT/HCPCS: 36415; 70450; 80048; 80076; 85025; 85610; 87635; 99284

== ENCOUNTER 2021-08-02 05:37 | Emergency (ER) | payer OTHER, SELFPAY ==
--- NOTE | ~2021-08-02 | XR_ITS ---
EXAMINATION: XR CHEST CLINICAL INFORMATION: Cough and shortness of breath COMPARISON: 06/10/2021 TECHNIQUE: 2 views of the chest were obtained. FINDINGS: Status post median sternotomy with mitral valve replacement. Mild cardiomegaly. Pulmonary vascularity within normal limits. Lungs are clear. No pleural effusion or pneumothorax. No acute or suspicious osseous abnormalities. XR/XR chest 2V IMPRESSION: No acute findings
[2021-08-02 05:48] VITALS: BP 149/78; PULSE 100; RESP 16; TEMP 37.3; O2SAT 99; BMI 25.7
[2021-08-02 06:13] VITALS: RESP 16
[2021-08-02 06:36] LABS: COVID-19 Test Negative (Negative); IDNOW Serial# 9DD0AD1C; Strep A Nucleic Acid Negative (Negative)
--- NOTE | 2021-08-02 06:37 | ED_ITS ---
HPI - General Adult General Chief complaint: Upper Respiratory Symptoms Stated complaint: Flu Like Symptoms Time Seen by Provider: 08/02/21 06:02 Source: patient Mode of arrival: ambulatory Limitations: no limitations History of Present Illness HPI narrative: 51-year-old female who presents emergency department for evaluation headache, sore throat, weakness, body aches, fever, cough and shortness of breath. Patient states that yesterday she developed a sore throat. She describes as a constant, sharp pain which is worse with swallowing. She states that she then developed a cough which is occasionally productive phlegm and mild shortness of breath . She had a subjective fever but did not take her temperature. she denied shaking chills. She states that her body aches all over, she has had nausea with no vomiting. She denied diarrhea. She is also complaining of a diffuse, moderate to severe headache which she describes as a throbbing sensation. She has had associated photophobia with no numbness or weakness of extremities but she does complain of fatigue and generalized weakness. The patient states that her granddaughter was sick several days prior with Upper respiratory symptoms but these resolved. the patient has been vaccinated for COVID-19, she received a 2 shot Pfizer vaccine with her 2nd shot being in January of 2021. The patient has a history chronic myelogenous leukemia (CML ) and is currently being treated with Tasigna. she also has a mechanical mitral valve replacement in 2002 secondary to mitral valve prolapse and is on warfarin. Related Data Home Medications Medication Instructions Recorded Confirmed hydroxyzine HCl 50 mg tablet mg PO 10/14/20 10/14/20 metoprolol succinate 50 mg 50 mg PO DAILY 10/14/20 10/14/20 tablet,extended release 24 hr nilotinib 150 mg capsule 300 mg PO BID 10/14/20 10/14/20 Previous Rx's Medication Instructions Recorded warfarin 5 mg tablet 5 mg PO DAILY #90 tab 06/17/20 acetaminophen 300 mg-codeine 30 mg 1 tab PO Q8H PRN #10 tab 04/25/21 tablet lidocaine HCl 4 % topical cream 1 appl TOPICAL BID PRN #120 g 04/25/21 (Aspercreme (lidocaine HCl)) ondansetron 4 mg disintegrating 4 mg PO Q6-8H PRN #14 tab 08/02/21 tablet Allergies Allergy/AdvReac Type Severity Reaction Status Date / Time cephalexin [From KEFLEX] Allergy Severe ANGIOEDEMA Verified 10/11/20 08:09 Penicillins [PCN] Allergy Severe DIFF Verified 10/11/20 08:09 BREATHING pilocarpine [PILOCARPINE] Allergy Severe DIFFICULTY Verified 10/11/20 08:09 BREATHING prochlorperazine Allergy Severe DIFFICULTY Verified 10/11/20 08:09 [From COMPAZINE] BREATHING Review of Systems Review of Systems: Yes all other systems are reviewed and are negative [facility] Past Medical History [facility] Narrative: Past medical history: Mitral valve prolapse status post lasts mechanical mitral valve placement in 2002 on warfarin, myocardial infarc tion, stroke x3, chronic myelogenous leukemia ( CML) diagnosed in 2018 treated with biologic agent Tasigna. Past surgical history: mechanical Mitral valve replacement 2002, . Social history: She smokes 1-2 cigarettes per day, she denies alcohol use, she denies drug use. Medical History delivery delivered H/O Sjogren's disease Leukemia Myocardial infarct Stroke Surgical History History of heart surgery Social History Social History Alcohol intake: unknown Patient Tobacco Use Status: Former Tobacco user Use of substances other than those prescribed or required for medical reasons: No Substance Use Type: Heroin Advance Directives: No Advance Directives Information Provided: No Patient : No Physical Exam Vital Signs: Vital Signs: Last Vital Signs Temp 98.8 F 08/02/21 10:03 Pulse 77 08/02/21 10:03 Resp 16 08/02/21 10:03 BP 132/63 08/02/21 08:29 Pulse Ox 96 08/02/21 10:03 Body Mass Index 25.7 Const: General: cooperative and no acute distress Orientation/consciousness: oriented to person and oriented to place Limitations: no limitations HENMT: Head: Yes normal to inspection, Yes normocephalic and Yes atraumatic Ears: external ears normal General nose exam: Normal external nose present Face and sinus: Yes normal facial exam Mouth: Normal oral and palatal mucosa present Throat: Yes posterior oropharynx normal Eyes: General: appearance normal, both eyes and all related structures Pupils: Equal, round and reactive pupils present Neck: Neck: Yes normal visual inspection, Yes no lymphadenopathy, Yes trachea midline and Yes supple Chest: Chest palpation & inspection: normal inspection of the chest and normal palpation of entire chest wall Resp: Effort & Inspection: normal respiratory effort and able to speak in complete sentences Auscultation: clear to auscultation bilaterally Cardio: Rate: regular rate Rhythm: regular rhythm Heart sounds: S2 normal heart sound present, no murmurs and Abnormal heart opening sounds ( mechanical S2) GI: Inspection: Yes normal to inspection Palpation (GI): Soft to palpation, nontender and no guarding Auscultation: normal bowel sounds : General: Yes no CVA tenderness Back/Spine/Pelvis: Back: no CVA tenderness Skin: General skin exam: no rashes or lesions noted Neuro: General: oriented to person and oriented to place Cranial nerves: Yes CN's II-XII intact bilaterally and Yes Equal, round and reactive pupils present Cognition (Neuro): normal cognition Motor exam (neuro): 5/5 motor strength present throughout Extrem: General: Yes normal to inspection Psych: Appearance: grossly normal Speech and movement: Normal speech and movement present Affect: normal affect Attitude: cooperative Thought process: Normal thought process present Thought content: Normal thought co ntent present Course Course Course Narrative: 51-year-old female who presents emergency department for evaluation of headache, sore throat, shortness of breath, cough, myalgias, nausea and body aches. Vital signs revealed an elevated blood pressure of 149/78, pulse was 100, respiratory was 16, temperature was 99.2? and O2 saturation was 99% on room air. Physical examination did reveal a mechanical S2 consistent with her mitral valve replacement Otherwise was unremarkable. patient most likely has a viral illness however given her mechanical mitral valve, her CML and treatment with a biologic agent, I will check blood work, chest x-ray an EKG on the patient. I ordered a CBC, CMP, lipase, lactate, blood cultures x2, COVID-19, strep test, viral respiratory panel. Patient's headache, nausea and myalgias were treated with morphine 4 mg IV, Zofran 4 mg IV and normal saline x1 L. 0932: Patient is feeling better after the above treatment. Patient's CBC revealed mild anemia with an H&H of 11.2 and 35.1 with a normal WBC of 8200. The patient's comprehensive metabolic panel was unremarkable. Chest x-ray revealed evidence of pneumonia. COVID-19 and rapid strep were negative. Respiratory panel is pending. PT and INR were 15.6 and 1.4 which is low for this patient given that she has mechanical valve . 1330 : The patient's respiratory viral panel was negative. I did discuss this with the patient. Patient's presentation is consistent with a viral syndrome. I did tell her the blood cultures are pending. The patient was discharged home with verbal and printed instructions. Medical Decision Making Lab Data Result diagrams: 08/02/21 08:39 08/02/21 08:39 Labs: Lab Results 08/02/21 08/02/21 08/02/21 Range/Units 06:10 06:10 08:39 WBC 8.2 (4.8-10.8) X10*3/uL RBC 4.13 L (4.20-5.50) X10*6/uL Hgb 11.2 L (12.0-16.0) g/dl Hct 35.1 L (37.0-47.0) % MCV 85.0 (80.0-98.0) fL MCH 27.1 (27.0-33.0) pg MCHC 31.9 (31.0-35.0) g/dl RDW 15.8 (11.0-16.0) % Plt Count 186 (160-400) X10*3/uL MPV 9.9 (9.4-12.3) fL Immature Gran % (Auto) 0.4 (0.0-0.4) % Neut % (Auto) 79.3 H (45-73) % Lymph % (Auto) 10.5 L (20-40) % [place] % (Auto) 7.1 (2-11) % Eos % (Auto) 2.6 (0-4) % Baso % (Auto) 0.1 (0-2) % Lymph # (Auto) 0.9 L (1.2-4.9) X10*3/uL [place] # (Auto) 0.6 (0.1-1.2) X10*3/uL Eos # (Auto) 0.2 (0.0-0.4) X10*3/uL Baso # (Auto) 0.0 (0.0-0.2) X10*3/uL Abs Immat Gran (auto) 0.03 (0.00-0.03) X10*3/uL Absolute Neuts (auto) 6.5 (2.0-8.3) x10*3/uL Absolute Nucleated RBC 0.000 (0.0-0.012) X10*3/uL Nucleated RBC % (auto) 0.0 (0.0-0.2) /100WBC PT (9.9-13.0) SEC INR (0.9-1.1) APTT (24.1-38.0) SEC Sodium (135-145) mmol/L Potassium (3.3-5.1) mmol/L Chloride (96-108) mmol/L Carbon Dioxide (22-29) mmol/L Anion Gap (12-20) BUN (9-16) mg/dL Creatinine (0.5-1.4) mg/dL Estim Creat Clear Calc Estimated GFR Random Glucose (60-115) mg/dL Lactic Acid (0.5-2.0) mmol/L Calcium (8.4-10.2) mg/dL Total Bilirubin (0.0-1.0) mg/dL AST (5-31) U/L ALT (0-31) U/L Alkaline Phosphatase (39-117) U/L Total Protein (6.5-8.0) g/dL Albumin (3.5-5.0) g/dL Lipase (8-78) U/L Urine Color Urine Appearance Urine pH (5.0-8.0) Ur Specific Ethel (1.005-1.025) Urine Protein (NEG-TRACE) MG/DL Urine Glucose (UA) (NEG) MG/DL Urine Ketones (NEG) MG/DL Urine Blood (NEG) Urine Nitrite (NEG) Ur Leukocyte Esterase (NEG) Respiratory Panel Salazar Adenovirus (Rapid PCR) (Not Detect.) B.pert (TEM-PCR) (Not Detect.) B.parapertussis DNA PCR (Not Detect.) C. pneumoniae DNA (PCR) (Not Detect.) Coronavirus OC43 (PCR) (Not Detect.) Coronavirus HKU1 (PCR) (Not Detect.) Coronavirus 229E (PCR) (Not Detect.) COVID-19 (MARÍA) Negative (Negative) COVID-19 Clin Com See Note Coronavirus NL63 (PCR) (Not Detect.) Human Metapneumovir PCR (Not Detect.) Influenza A (RT-PCR) (Not Detect.) Influenza B (RT-PCR) (Not Detect.) M. pneumoniae (PCR) (Not Detect.) Parainfluenza 1 (PCR) (Not Detect.) Parainfluenza 2 (PCR) (Not Detect.) Parainfluenza 3 (PCR) (Not Detect.) Parainfluenza 4 (PCR) (Not Detect.) RSV (PCR) (Not Detect.) Entero/Rhino (PCR) (Not Detect.) SARS-CoV-2 RNA (RT-PCR) (Not Detect.) S. pyogenes GrpA ARTURO Negative (Negative) 08/02/21 08/02/21 08/02/21 Range/Units 08:39 08:39 08:39 WBC (4.8-10.8) X10*3/uL RBC (4.20-5.50) X10*6/uL Hgb (12.0-16.0) g/dl Hct (37.0-47.0) % MCV (80.0-98.0) fL MCH (27.0-33.0) pg MCHC (31.0-35.0) g/dl RDW (11.0-16.0) % Plt Count (160-400) X10*3/uL MPV (9.4-12.3) fL Immature Gran % (Auto) (0.0-0.4) % Neut % (Auto) (45-73) % Lymph % (Auto) (20-40) % [place] % (Auto) (2-11) % Eos % (Auto) (0-4) % Baso % (Auto) (0-2) % Lymph # (Auto) (1.2-4.9) X10*3/uL [place] # (Auto) (0.1-1.2) X10*3/uL Eos # (Auto) (0.0-0.4) X10*3/uL Baso # (Auto) (0.0-0.2) X10*3/uL Abs Immat Gran (auto) (0.00-0.03) X10*3/uL Absolute Neuts (auto) (2.0-8.3) x10*3/uL Absolute Nucleated RBC (0.0-0.012) X10*3/uL Nucleated RBC % (auto) (0.0-0.2) /100WBC PT 15.6 H (9.9-13.0) SEC INR 1.4 H D (0.9-1.1) APTT 41.8 H (24.1-38.0) SEC Sodium 138 (135-145) mmol/L Potassium 4.0 (3.3-5.1) mmol/L Chloride 110 H (96-108) mmol/L Carbon Dioxide 23 (22-29) mmol/L Anion Gap 9 L (12-20) BUN 7 L (9-16) mg/dL Creatinine 0.66 (0.5-1.4) mg/dL Estim Creat Clear Calc 89.8 Estimated GFR > 60 Random Glucose 98 (60-115) mg/dL Lactic Acid 0.8 (0.5-2.0) mmol/L Calcium 8.1 L D (8.4-10.2) mg/dL Total Bilirubin 0.7 (0.0-1.0) mg/dL AST 30 D (5-31) U/L ALT 25 (0-31) U/L Alkaline Phosphatase 99 (39-117) U/L Total Protein 6.5 (6.5-8.0) g/dL Albumin 3.8 (3.5-5.0) g/dL Lipase 27 (8-78) U/L Urine Color Urine Appearance Urine pH (5.0-8.0) Ur Specific Ethel (1.005-1.025) Urine Protein (NEG-TRACE) MG/DL Urine Glucose (UA) (NEG) MG/DL Urine Ketones (NEG) MG/DL Urine Blood (NEG) Urine Nitrite (NEG) Ur Leukocyte Esterase (NEG) Respiratory Panel Salazar Adenovirus (Rapid PCR) (Not Detect.) B.pert (TEM-PCR) (Not Detect.) B.parapertussis DNA PCR (Not Detect.) C. pneumoniae DNA (PCR) (Not Detect.) Coronavirus OC43 (PCR) (Not Detect.) Coronavirus HKU1 (PCR) (Not Detect.) Coronavirus 229E (PCR) (Not Detect.) COVID-19 (MARÍA) (Negative) COVID-19 Clin Com Coronavirus NL63 (PCR) (Not Detect.) Human Metapneumovir PCR (Not Detect.) Influenza A (RT-PCR) (Not Detect.) Influenza B (RT-PCR) (Not Detect.) M. pneumoniae (PCR) (Not Detect.) Parainfluenza 1 (PCR) (Not Detect.) Parainfluenza 2 (PCR) (Not Detect.) Parainfluenza 3 (PCR) (Not Detect.) Parainfluenza 4 (PCR) (Not Detect.) RSV (PCR) (Not Detect.) Entero/Rhino (PCR) (Not Detect.) SARS-CoV-2 RNA (RT-PCR) (Not Detect.) S. pyogenes GrpA ARTURO (Negative) 08/02/21 08/02/21 Range/Units 08:49 08:52 WBC (4.8-10.8) X10*3/uL RBC (4.20-5.50) X10*6/uL Hgb (12.0-16.0) g/dl Hct (37.0-47.0) % MCV (80.0-98.0) fL MCH (27.0-33.0) pg MCHC (31.0-35.0) g/dl RDW (11.0-16.0) % Plt Count (160-400) X10*3/uL MPV (9.4-12.3) fL Immature Gran % (Auto) (0.0-0.4) % Neut % (Auto) (45-73) % Lymph % (Auto) (20-40) % [place] % (Auto) (2-11) % Eos % (Auto) (0-4) % Baso % (Auto) (0-2) % Lymph # (Auto) (1.2-4.9) X10*3/uL [place] # (Auto) (0.1-1.2) X10*3/uL Eos # (Auto) (0.0-0.4) X10*3/uL Baso # (Auto) (0.0-0.2) X10*3/uL Abs Immat Gran (auto) (0.00-0.03) X10*3/uL Absolute Neuts (auto) (2.0-8.3) x10*3/uL Absolute Nucleated RBC (0.0-0.012) X10*3/uL Nucleated RBC % (auto) (0.0-0.2) /100WBC PT (9.9-13.0) SEC INR (0.9-1.1) APTT (24.1-38.0) SEC Sodium (135-145) mmol/L Potassium (3.3-5.1) mmol/L Chloride (96-108) mmol/L Carbon Dioxide (22-29) mmol/L Anion Gap (12-20) BUN (9-16) mg/dL Creatinine (0.5-1.4) mg/dL Estim Creat Clear Calc Estimated GFR Random Glucose (60-115) mg/dL Lactic Acid (0.5-2.0) mmol/L Calcium (8.4-10.2) mg/dL Total Bilirubin (0.0-1.0) mg/dL AST (5-31) U/L ALT (0-31) U/L Alkaline Phosphatase (39-117) U/L Total Protein (6.5-8.0) g/dL Albumin (3.5-5.0) g/dL Lipase (8-78) U/L Urine Color STRAW Urine Appearance CLEAR Urine pH 7.5 (5.0-8.0) Ur Specific Ethel 1.010 (1.005-1.025) Urine Protein NEG (NEG-TRACE) MG/DL Urine Glucose (UA) NEG (NEG) MG/DL Urine Ketones NEG (NEG) MG/DL Urine Blood NEG (NEG) Urine Nitrite NEG (NEG) Ur Leukocyte Esterase NEG (NEG) Respiratory Panel Salazar See Note Adenovirus (Rapid PCR) Not Detected (Not Detect.) B.pert (TEM-PCR) Not Detected (Not Detect.) B.parapertussis DNA PCR Not Detected (Not Detect.) C. pneumoniae DNA (PCR) Not Detected (Not Detect.) Coronavirus OC43 (PCR) Not Detected (Not Detect.) Coronavirus HKU1 (PCR) Not Detected (Not Detect.) Coronavirus 229E (PCR) Not Detected (Not Detect.) COVID-19 (MARÍA) (Negative) COVID-19 Clin Com Coronavirus NL63 (PCR) Not Detected (Not Detect.) Human Metapneumovir PCR Not Detected (Not Detect.) Influenza A (RT-PCR) Not Detected (Not Detect.) Influenza B (RT-PCR) Not Detected (Not Detect.) M. pneumoniae (PCR) Not Detected (Not Detect.) Parainfluenza 1 (PCR) Not Detected (Not Detect.) Parainfluenza 2 (PCR) Not Detected (Not Detect.) Parainfluenza 3 (PCR) Not Detected (Not Detect.) Parainfluenza 4 (PCR) Not Detected (Not Detect.) RSV (PCR) Not Detected (Not Detect.) Entero/Rhino (PCR) Not Detected (Not Detect.) SARS-CoV-2 RNA (RT-PCR) Not Detected (Not Detect.) S. pyogenes GrpA ARTURO (Negative) Discharge Plan Discharge Clinical Impression: Viral syndrome, Nausea Pharyngitis Qualifiers: Pharyngitis/tonsillitis etiology: unspecified etiology Qualified Code(s): J02.9 - Acute pharyngitis, unspecified Patient Disposition: Home, Self-Care Instructions: Acute Nausea and Vomiting (ED), Viral Syndrome (ED) Additional Instructions: Your complete blood count was normal. Your INR was low at 1.4, your PT was 15.6. You should call the provider that manages your warfarin/Coumadin today to discuss increasing your dose of warfarin/Coumadin. Your COVID-19 test and rapid strep test were negative. Your viral panel is pending, I will call you with this result, sometimes takes 4-6 hours for this result to come back. We did check 2 sets blood cultures on you, if you have bacteria in your blood, the lab can usually grow this side of your blood in 1-2 days but sometimes it takes a whole week. My impression is that your symptoms are due to a viral infection. Take Tylenol (acetaminophen) 500 mg pills, 2 pills every 4 to 6 hours as needed for pain. Take Zofran ODT 4 mg pills, 1 pill dissolved in your mouth every 8 hours as n eeded for nausea and vomiting. Follow-up with your doctor in 2 days. Please return to the emergency department if your symptoms get worse or if you develop any symptoms that are concerning to you. Prescriptions: New ondansetron 4 mg tablet,disintegrating 4 mg PO Q6-8H PRN (Reason: nausea and vomiting) Qty: 14 RF: 0 No Action warfarin 5 mg tablet 5 mg PO DAILY Qty: 90 RF: 0 lidocaine HCl [Aspercreme (lidocaine HCl)] 4 % cream 1 appl topical BID PRN (Reason: pain) Qty: 120 RF: 0 acetaminophen-codeine 300-30 mg tablet 1 tab PO Q8H PRN (Reason: pain) Qty: 10 RF: 0 Tasigna 150 mg capsule 300 mg PO BID RF: 0 hydroxyzine HCl 50 mg tablet PO RF: 0 metoprolol succinate 50 mg tablet extended release 24 hr 50 mg PO DAILY RF: 0 Stand Alone Forms: Work/School Release Interventions: ED Discharge Assessment Last Done: 08/02/21 10:19 Discharge Date/Time: 08/02/21 10:20
--- NOTE | 2021-08-02 06:52 | ECG_ITS ---
Test Reason : chest pain, shortness of breath Blood Pressure : / mmHG Vent. Rate : 081 BPM Atrial Rate : 081 BPM P-R Int : 162 ms QRS Dur : 078 ms QT Int : 388 ms P-R-T Axes : 000 054 020 degrees QTc Int : 450 ms Normal sinus rhythm RSR' or QR pattern in V1 suggests right ventricular conduction delay Otherwise normal ECG When compared with ECG of 10-JUN-2021 19:32, No significant change was found Referred By: Evaristo Guillory Electronically Signed By:SAGE MIRANDA MD
[2021-08-02] MEDS: 0.9 % Sodium Chloride 1,000 ML 999 ML IV (07:57)
[2021-08-02] MEDS: Ondansetron ODT 4 MG TAB.RAPDIS TRANSLINGU (07:57)
[2021-08-02] MEDS: Morphine Sulfate 4 MG/ML CARTRIDGE IVPUSH (07:57)
[2021-08-02 07:58] VITALS: BP 129/60; PULSE 86; RESP 20; O2SAT 98
[2021-08-02 08:29] VITALS: BP 132/63; PULSE 81; RESP 16; TEMP 36.9; O2SAT 99
[2021-08-02 08:44] LABS: MANUAL DIFF FLAG NO
[2021-08-02 08:52] LABS: INTERNATIONAL NORM RATIO 1.4 (0.9-1.1); Prothrombin Time 15.6 SEC (9.9-13.0)
[2021-08-02 08:55] LABS: Partial Thromboplastin Time 41.8 SEC (24.1-38.0)
[2021-08-02 08:56] LABS: Lactic Acid 0.8 mmol/L (0.5-2.0)
[2021-08-02 08:57] LABS: Basophils Percent Auto 0.1 % (0-2); Eosinophils Absolute Auto 0.2 X10*3/uL (0.0-0.4); Eosinophils Percent Auto 2.6 % (0-4); Hematocrit 35.1 % (37.0-47.0); Hemoglobin 11.2 g/dl (12.0-16.0); Imm Gran Abs Auto 0.03 X10*3/uL (0.00-0.03); Imm Gran Pct Auto 0.4 % (0.0-0.4); Lymphocytes Absolute Auto 0.9 X10*3/uL (1.2-4.9); Lymphocytes Percent Auto 10.5 % (20-40); Mean Corpuscular HGB Conc 31.9 g/dl (31.0-35.0); Mean Corpuscular Hemoglobin 27.1 pg (27.0-33.0); Mean Platelet Volume 9.9 fL (9.4-12.3); Monocytes Absolute Auto 0.6 X10*3/uL (0.1-1.2); Monocytes Percent Auto 7.1 % (2-11); Neutrophils Absolute Auto 6.5 x10*3/uL (2.0-8.3); Neutrophils Percent Auto 79.3 % (45-73); Platelet Count 186 X10*3/uL (160-400); Red Blood Count 4.13 X10*6/uL (4.20-5.50); Red Cell Distribution Width 15.8 % (11.0-16.0); White Blood Count 8.2 X10*3/uL (4.8-10.8)
[2021-08-02 08:59] LABS: Adenovirus PCR Not Detected (Not Detect.); Bordetella parapertussis PCR Not Detected (Not Detect.); Bordetella pertussis PCR Not Detected (Not Detect.); Chlamydia pneumoniae PCR Not Detected (Not Detect.); Coronavirus 229E PCR Not Detected (Not Detect.); Coronavirus HKU1 PCR Not Detected (Not Detect.); Coronavirus NL63 PCR Not Detected (Not Detect.); Coronavirus OC43 PCR Not Detected (Not Detect.); Human metapneumovirus PCR Not Detected (Not Detect.); Influenza A PCR Not Detected (Not Detect.); Influenza B PCR Not Detected (Not Detect.); Mycoplasma pneumoniae PCR Not Detected (Not Detect.); Parainfluenza 1 PCR Not Detected (Not Detect.); Parainfluenza 2 PCR Not Detected (Not Detect.); Parainfluenza 3 PCR Not Detected (Not Detect.); Parainfluenza 4 PCR Not Detected (Not Detect.); RSV PCR Not Detected (Not Detect.); Rhino/Enterovirus PCR Not Detected (Not Detect.); SARS-CoV-2 PCR Not Detected (Not Detect.)
[2021-08-02 09:01] LABS: Appearance Urine CLEAR; Color Urine STRAW; Glucose Urine UA NEG (NEG); Leukocyte Esterase Urine NEG (NEG); Nitrite Urine NEG (NEG); PH 7.5 (5.0-8.0); Urine Blood NEG (NEG); Urine Ketones NEG (NEG); Urine Protein NEG (NEG-TRACE)
[2021-08-02 09:06] LABS: Alanine Aminotransferase 25 U/L (0-31); Albumin Level 3.8 g/dL (3.5-5.0); Alkaline Phosphatase 99 U/L (39-117); Anion Gap 9 (12-20); Aspartate Amino Transferase 30 U/L (5-31); Bilirubin Total 0.7 mg/dL (0.0-1.0); Blood Urea Nitrogen 7 mg/dL (9-16); Calcium 8.1 mg/dL (8.4-10.2); Carbon Dioxide 23 mmol/L (22-29); Chloride 110 mmol/L (96-108); Creatinine Clr Calc Pharmacy 89.8; Estimated Glomerular Filt Rate > 60; Glucose Random 98 mg/dL (60-115); Lipase 27 U/L (8-78); Sodium 138 mmol/L (135-145); Total Protein 6.5 g/dL (6.5-8.0)
[2021-08-02 10:03] VITALS: PULSE 77; RESP 16; TEMP 37.1; O2SAT 96
== END 2021-08-02 10:20 | disposition home or self-care (01) ==
PROVIDERS: Emergency Medicine; Emergency Provider Emergency Medicine Emergency Medical Services; PCP Internal Medicine
DX: B34.9 Viral infection, unspecified (principal); J02.9 Acute pharyngitis, unspecified; R11.0 Nausea; Z20.822 Contact with and (suspected) exposure to COVID-19; R51.9 Headache, unspecified; R53.1 Weakness; R06.02 Shortness of breath; C92.10 Chronic myeloid leukemia, BCR/ABL-positive, not having achieved remission; F17.200 Nicotine dependence, unspecified, uncomplicated; Z95.2 Presence of prosthetic heart valve; Z79.899 Other long term (current) drug therapy; Z79.01 Long term (current) use of anticoagulants
CPT/HCPCS: 36415; 71046; 80053; 81003; 83605; 83690; 85025; 85610; 85730; 87040; 87633; 87635; 87651; 93005; 96361; 96374; 99285; J2270

== ENCOUNTER 2021-08-11 12:36 | Emergency (ER) | payer OTHER, SELFPAY ==
--- NOTE | ~2021-08-11 | XR_ITS ---
EXAMINATION: XR CHEST CLINICAL INFORMATION: Question aspiration COMPARISON: Previous chest x-ray most recent 08/02/2021 TECHNIQUE: 2 views of the chest were obtained. FINDINGS: The cardiac and mediastinal contours are stable. Postsurgical changes from mitral valve replacement. The lungs are clear. There is no pleural effusion or pneumothorax. Bony structures are normal. XR/XR chest 2V IMPRESSION: No evidence of pneumonia.
[2021-08-11 12:49] VITALS: BP 143/78; BP 157/93; PULSE 89; PULSE 96; RESP 16; TEMP 35.9; O2SAT 100; O2SAT 99; BMI 26.6
--- NOTE | 2021-08-11 12:49 | ED.GENADULT ---
HPI - General Adult General Chief complaint: General Medical Stated complaint: Food stuck in throat? Time Seen by Provider: 08/11/21 12:49 Source: patient Mode of arrival: EMS Limitations: no limitations History of Present Illness HPI narrative: patient was at home was eating ravioli and it felt like it got stuck. Patient denies vomiting, has a sore throat. Patient has Sjogren's and this does happen to her. No history of esophageal procedures. patient feels her voiced got scratchy after the incident. Feels like her throat is swollen. Onset (ago): hour(s) Radiation: non-radiation Severity: moderate Related Data Home Medications Medication Instructions Recorded Confirmed hydroxyzine HCl 50 mg tablet mg PO 10/14/20 10/14/20 metoprolol succinate 50 mg 50 mg PO DAILY 10/14/20 10/14/20 tablet,extended release 24 hr nilotinib 150 mg capsule 300 mg PO BID 10/14/20 10/14/20 Previous Rx's Medication Instructions Recorded warfarin 5 mg tablet 5 mg PO DAILY #90 tab 06/17/20 acetaminophen 300 mg-codeine 30 mg 1 tab PO Q8H PRN #10 tab 04/25/21 tablet lidocaine HCl 4 % topical cream 1 appl TOPICAL BID PRN #120 g 04/25/21 (Aspercreme (lidocaine HCl)) ondansetron 4 mg disintegrating 4 mg PO Q6-8H PRN #14 tab 08/02/21 tablet Allergies Allergy/AdvReac Type Severity Reaction Status Date / Time cephalexin [From KEFLEX] Allergy Severe ANGIOEDEMA Verified 10/11/20 08:09 Penicillins [PCN] Allergy Severe DIFF Verified 10/11/20 08:09 BREATHING pilocarpine [PILOCARPINE] Allergy Severe DIFFICULTY Verified 10/11/20 08:09 BREATHING prochlorperazine Allergy Severe DIFFICULTY Verified 10/11/20 08:09 [From COMPAZINE] BREATHING Review of Systems Constitutional: Constitutional: Reports no additional constitutional complaints Eyes: Eyes: Reports no additional eye complaints ENT: Denies dizziness Cardiovascular: Cardiovascular: Reports no additional cardiovascular complaints Respiratory: Respiratory: Reports as per HPI Gastrointestinal: Gastrointestinal: Reports no additional gastrointestinal complaints Genitourinary: Genitourinary: Reports no additional female genitourinary complaints Musculoskeletal: Musculoskeletal: Reports no additional musculoskeletal complaints Integumentary/Breasts: Skin/Breast: Denies rash Neurologic: Reports system reviewed and no additional complaints, except as documented, Denies dizziness and Denies Sensory deficit (Neuro) Psychiatric: Psychiatric: Denies anxiety PMFSH Past Medical History Medical History delivery delivered H/O Sjogren's disease Leukemia Myocardial infarct Stroke Surgical History History of heart surgery Social History Social History Alcohol intake: unknown Patient Tobacco Use Status: Former Tobacco user Substance Use Type: Heroin Advance Directives: No Advance Directives Information Provided: No Physical Exam Vital Signs: Vital Signs: Last Vital Signs Temp 96.6 F L 08/11/21 12:49 Pulse 89 08/11/21 12:49 Resp 16 08/11/21 12:49 BP 143/78 H 08/11/21 12:49 Pulse Ox 99 08/11/21 12:49 Body Mass Index 26.6 Const: Other: patient with laryngitis, not short of breath, tolerating po liquids General: healthy appearing Nutritional Appearance: average body habitus Orientation/consciousness: oriented to person and patient oriented x3 Limitations: no limitations HENMT: Other: tongue, uvula and pharynx all normal. Patient with some hoarseness which is improving Head: Yes normal to inspection Ears: external ears normal General nose exam: Normal external nose present Mouth: Normal oral and palatal mucosa present and oropharynx normal Throat: Yes posterior oropharynx normal Eyes: General: appearance normal, both eyes and all related structures Neck: Other: supple Neck: Yes normal visual inspection Chest: Chest palpation & inspection: normal inspection of the chest Resp: Auscultation: clear to auscultation bilaterally Cardio: Other: 3/6 MICHAEL Jugular venous distension: no JVD Rate: regular rate Rhythm: regular rhythm Heart sounds: S1 normal heart sound present and S2 normal heart sound present GI: Inspection: Yes normal to inspection Palpation (GI): Soft to palpation, nontender and No hepatosplenomegaly present Auscultation: normal bowel sounds : General: Yes no CVA tenderness Back/Spine/Pelvis: Back: no CVA tenderness Skin: General skin exam: no rashes or lesions noted Neuro: General: oriented to person and patient oriented x3 Cranial nerves: Yes CN's II-XII intact bilaterally Motor exam (neuro): 5/5 motor strength present throughout Sensory Exam: No Sensory deficit (Neuro) Extrem: General: Yes normal to inspection Psych: Appearance: grossly normal Course Reevaluation(s) Reevaluation #1: patient observed, tolerated po fluids, CXR normal, can discharge home Time: 15:09 Medical Decision Making Imaging Data Chest x-ray: Radiologist's impression: FINDINGS: The cardiac and mediastinal contours are stable. Postsurgical changes from mitral valve replacement. The lungs are clear. There is no pleural effusion or pneumothorax. Bony structures are normal. XR/XR chest 2V IMPRESSION: No evidence of pneumonia. Discharge Plan Discharge Clinical Impression: Foreign body of esophagus Qualifiers: Encounter type: initial encounter Qualified Code(s): T18.108A - Unspecified foreign body in esophagus causing other injury, initial encounter Patient Disposition: Home, Self-Care Instructions: Esophageal Foreign Body (ED) Prescriptions: No Action warfarin 5 mg tablet 5 mg PO DAILY Qty: 90 RF: 0 lidocaine HCl [Aspercreme (lidocaine HCl)] 4 % cream 1 appl topical BID PRN (Reason: pain) Qty: 120 RF: 0 acetaminophen-codeine 300-30 mg tablet 1 tab PO Q8H PRN (Reason: pain) Qty: 10 RF: 0 ondansetron 4 mg tablet,disintegrating 4 mg PO Q6-8H PRN (Reason: nausea and vomiting) Qty: 14 RF: 0 Tasigna 150 mg capsule 300 mg PO BID RF: 0 hydroxyzine HCl 50 mg tablet PO RF: 0 metoprolol succinate 50 mg tablet extended release 24 hr 50 mg PO DAILY RF: 0 Referrals: Tu Grande MD [Primary Care Provider] - 1 week Mickey Jean-Baptiste [Physician] - 1 week
[2021-08-11] MEDS: PHENobarb/Hyoscy/Atropine/Scop 10 ML ELIXIR PO (13:53)
[2021-08-11] MEDS: Magnesium Hydrox/Alum Hydrox 30 ML ORAL.SUSP PO (13:53)
[2021-08-11] MEDS: Lidocaine HCl Viscous 2 % 15 ML SOLUTION MUCOUS MEM (13:53)
== END 2021-08-11 15:18 | disposition home or self-care (01) ==
PROVIDERS: Emergency Provider Emergency Medicine; PCP Internal Medicine
DX: R09.89 Other specified symptoms and signs involving the circulatory and respiratory systems (principal); M35.00 Sjogren syndrome, unspecified; R06.02 Shortness of breath; F11.90 Opioid use, unspecified, uncomplicated; Z79.899 Other long term (current) drug therapy; Z87.891 Personal history of nicotine dependence
CPT/HCPCS: 71046; 99283

== ENCOUNTER 2021-09-30 09:20 | Emergency (ER) | payer OTHER, SELFPAY ==
[2021-09-30 10:15] VITALS: BP 137/62; PULSE 70; RESP 20; TEMP 37.1; O2SAT 98; BMI 26.5
== END 2021-09-30 11:33 | disposition left against medical advice (07) ==
PROVIDERS: Emergency Provider Emergency Medicine; PCP Internal Medicine
DX: M79.661 Pain in right lower leg (principal); R22.41 Localized swelling, mass and lump, right lower limb
CPT/HCPCS: 36415; 80048; 83735; 85025; 85610; 93971; 99281; 99282; 99284

== ENCOUNTER 2021-09-30 12:38 | Emergency (ER) | payer OTHER, SELFPAY ==
--- NOTE | ~2021-09-30 | US_ITS ---
EXAMINATION: US VENOUS ULTRASOUND WITH DOPPLER LOWER EXTREMITY, RIGHT CLINICAL INFORMATION: Pain COMPARISON: None TECHNIQUE: Ultrasound of the deep veins is performed from the hip to the calf with compression sonography and color and pulse Doppler assessment. Spectral analysis with color-flow imaging is performed. FINDINGS: There is normal venous compression and respiratory variation and augmented flow. The visualized common femoral vein, superficial femoral vein, profunda femoral vein, popliteal vein, and the trifurcation region shows no evidence of deep venous thrombosis. There is no significant popliteal fossa cyst. US/US venous duplex LE RT IMPRESSION: No DVT demonstrated in the right lower extremity.
[2021-09-30 15:07] VITALS: BP 166/83; PULSE 76; RESP 18; O2SAT 100; BMI 27.4
--- NOTE | 2021-09-30 15:29 | ED_ITS ---
HPI - General Adult General Chief complaint: Extremity Injury, Lower Stated complaint: leg pain Time Seen by Provider: 09/30/21 15:07 Source: patient Mode of arrival: EMS Limitations: no limitations History of Present Illness HPI narrative: Patient is a 51-year-old woman with a past medical history significant for mechanical mitral heart valve replacement in 2002 secondary to mitral valve prolapse anticoagulated with warfarin, stroke and myocardial infarct in 2014, chronic myelogenous leukemia (CML) and is currently being treated with Tasigna, and Sjogren's disease. 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 It felt like I pulled something . Reports the pain has been constant since this occurred, she noted some swelling to her right lower extremity when she got home this morning. The pain is non-radiating, denies known alleviating factors, exacerbated with weight-bearing, She tried applying topical icy hot without significant relief. This afternoon, she tried to walk down the stairs and developed sharp shooting pain again in her right calf. She hopped back up the stairs to her house, called her son, and presented to the emergency room via EMS. Of note, she does report that within the past week she missed 2 doses of her Coumadin, as she ran out of the medication. Reports her last INR was 2, but this was greater than 1 week ago. Currently being treated for CML, she is a cigarette smoker. Denies any recent e xtended travel, surgical procedures, or injury to the lower extremity. Denies past history of DVT or PE. Denies vision changes, headache, dizziness/lightheadedness, chest pain, palpitations, shortness of breath, dyspnea with exertion. Onset (ago): hour(s) Location: right and lower extremity Radiation: non-radiation Severity: moderate Severity scale (1-10): 5 Quality: stabbing and aching Pain Consistency: constant Relieving factors: none Exacerbating factors: other (weight bearing) Associated symptoms: denies other symptoms Treatments prior to arrival: other (icy hot) Related Data Home Medications Medication Instructions Recorded Confirmed hydroxyzine HCl 50 mg tablet mg PO 10/14/20 10/14/20 metoprolol succinate 50 mg 50 mg PO DAILY 10/14/20 10/14/20 tablet,extended release 24 hr nilotinib 150 mg capsule 300 mg PO BID 10/14/20 10/14/20 Previous Rx's Medication Instructions Recorded warfarin 5 mg tablet 5 mg PO DAILY #90 tab 06/17/20 acetaminophen 300 mg-codeine 30 mg 1 tab PO Q8H PRN #10 tab 04/25/21 tablet lidocaine HCl 4 % topical cream 1 appl TOPICAL BID PRN #120 g 04/25/21 (Aspercreme (lidocaine HCl)) ondansetron 4 mg disintegrating 4 mg PO Q6-8H PRN #14 tab 08/02/21 tablet Allergies Allergy/AdvReac Type Severity Reaction Status Date / Time cephalexin [From KEFLEX] Allergy Severe ANGIOEDEMA Verified 10/11/20 08:09 Penicillins [PCN] Allergy Severe DIFF Verified 10/11/20 08:09 BREATHING pilocarpine [PILOCARPINE] Allergy Severe DIFFICULTY Verified 10/11/20 08:09 BREATHING prochlorperazine Allergy Severe DIFFICULTY Verified 10/11/20 08:09 [From COMPAZINE] BREATHING Review of Systems Review of Systems: Constitutional: No weight loss, fever, chills, weakness or fatigue. HEENT: No visual loss, blurred vision, double vision or yellow sclera. No hearing loss, sneezing, congestion, runny nose or sore throat. Skin: No rash or itching. Cardiovascular: No chest pain, chest pressure or chest discomfort. No palpitations or pedal edema. Respiratory: No shortness of breath, cough or sputum production. Gastrointestinal: No anorexia, nausea, vomiting or diarrhea. No abdominal pain or blood in stool. Genitourinary: No burning micturition. No urinary frequency or incontinence. Neurologic: No headache, dizziness, syncope, unilateral weakness, ataxia, numbness or tingling in the extremities. No change in bowel or bladder control. Musculoskeletal: + right calf pain. No muscle pain, back pain, joint pain or stiffness. Hematologic: No bleeding or bruising. Lymphatics: No enlarged lymph nodes. Psychiatric:No depression or anxiety. Endocrine: No reports of sweating. No cold or heat intolerance. No polyuria or polydipsia. [facility] Past Medical History Attestation statement: The following information was validated with the patient. Medical History delivery delivered H/O Sjogren's disease Leukemia Myocardial infarct Stroke Surgical History History of heart surgery Social History Social History Alcohol intake: unknown Patient Tobacco Use Status: Former Tobacco user Substance Use Type: Heroin Advance Directives: No Advance Directives Information Provided: No Patient : No Physical Exam Vital Signs: Vital Signs: Last Vital Signs Pulse 76 09/30/21 15:07 Resp 18 09/30/21 15:07 BP 166/83 H 09/30/21 15:07 Pulse Ox 100 09/30/21 15:07 BMI result Body Mass Index 27.4 Vital signs have been reviewed as normal and appeared to be correct. Blood pressure normal.? Heart rate normal.? Respiration rate normal. Temperature normal, 98.1.? Oxygen saturation normal. Appearance: Alert.? Oriented X3.? No acute distress.?? Eyes: Pupils equal, round and reactive to light.?? ENT: Pharynx normal.?? Neck: Normal inspection.? Neck supple.?? CVS: Normal heart rate and rhythm.? Pulses normal.?No edema. Respiratory: No respiratory distress.? Breath sounds normal.?? Abdomen: Soft and nontender.?? Skin: Skin warm and dry.? Normal skin color.? Normal skin turgor.?? Extremities: + right calf tenderness. palpable 2+ dorsalis pedis and posterior tibial pulse. No lower extremity edema.? Neuro: Oriented X 3.? No motor deficit.? No sensory deficit. Course Course Course Narrative: Patient is a 51-year-old woman with a past medical history significant for mechanical mitral heart valve replacement in 2002 secondary to mitral valve prolapse anticoagulated with warfarin, stroke and myocardial infarct in 2015, chronic myelogenous leukemia (CML) and is currently being treated with Tasigna, and Sjogren's disease. She presents emergency department for evaluation of right calf pain. Patient to have serum labs, right lower extr emity ultrasound obtained, disposition pending results. Reevaluation(s) Reevaluation #1: Ultrasound unremarkable for DVT. Serum labs without any concerning findings. pain most consistent with strain of the muscles right lower extremity. Advised use of Tylenol, topical heat and cold therapy, gentle stretching exercise, and use of crutches to assist with weight-bearing. Patient provided with work note and advised to follow-up with her primary care provider in 2-3 days, and reviewed return precautions. Time: 17:00 Medical Decision Making Lab Data Result diagrams: 09/30/21 16:30 09/30/21 16:30 Labs: Lab Results 09/30/21 09/30/21 09/30/21 Range/Units 16:30 16:30 16:30 WBC 6.8 (4.8-10.8) X10*3/uL RBC 4.30 (4.20-5.50) X10*6/uL Hgb 11.7 L (12.0-16.0) g/dl Hct 36.3 L (37.0-47.0) % MCV 84.4 (80.0-98.0) fL MCH 27.2 (27.0-33.0) pg MCHC 32.2 (31.0-35.0) g/dl RDW 16.2 H (11.0-16.0) % Plt Count 232 (160-400) X10*3/uL MPV 9.5 (9.4-12.3) fL Immature Gran % (Auto) 0.3 (0.0-0.4) % Neut % (Auto) 66.2 (45-73) % Lymph % (Auto) 23.0 (20-40) % [place] % (Auto) 6.4 (2-11) % Eos % (Auto) 4.0 (0-4) % Baso % (Auto) 0.1 (0-2) % Lymph # (Auto) 1.6 (1.2-4.9) X10*3/uL [place] # (Auto) 0.4 (0.1-1.2) X10*3/uL Eos # (Auto) 0.3 (0.0-0.4) X10*3/uL Baso # (Auto) 0.0 (0.0-0.2) X10*3/uL Abs Immat Gran (auto) 0.02 (0.00-0.03) X10*3/uL Absolute Neuts (auto) 4.5 (2.0-8.3) x10*3/uL Absolute Nucleated RBC 0.000 (0.0-0.012) X10*3/uL Nucleated RBC % (auto) 0.0 (0.0-0.2) /100WBC PT 42.1 H (9.9-13.0) SEC INR 3.6 H D (0.9-1.1) Sodium 140 (135-145) mmol/L Potassium 4.0 (3.3-5.1) mmol/L Chloride 110 H (96-108) mmol/L Carbon Dioxide 23 (22-29) mmol/L Anion Gap 11 L (12-20) BUN 10 (9-16) mg/dL Creatinine 0.74 (0.5-1.4) mg/dL Estim Creat Clear Calc 79.5 Estimated GFR > 60 Random Glucose 87 (60-115) mg/dL Calcium 9.0 D (8.4-10.2) mg/dL Magnesium 2.3 (1.6-2.6) mg/dL Scores Wells DVT Active cancer (tx with in 6 mo or palliation): 1 Localized tenderness along distribution of deep veins: 1 Score: 2 2-tier Risk: likely risk (17-53%) 3-tier Risk: moderate risk (17%) Discharge Plan Discharge Clinical Impression: Muscle strain of right lower extremity Qualifiers: Encounter type: initial encounter Qualified Code(s): S86.911A - Strain of unspecified muscle(s) and tendon(s) at lower leg level, right leg, initial encounter Patient Disposition: Home, Self-Care Instructions: Crutch Instructions (ED), Muscle Strain (ED) Additional Instructions: You were evaluated in the emergency department for pain in the right calf. The ultrasound obtained of your right leg revealed no blood clot, since you recently missed a few doses of your Coumadin, your INR was checked which was 3.6. The pain you are experiencing is likely due to a strain of the muscles in your calf. For your pain, you should take Tylenol, which can be purchased [id number], you can apply ice to your leg for a few days followed by heat, and perform exercises to stretch the lower leg. You were given crutches to assist with walking and instructed on appropriate use. Please follow-up with your primary care provider in 2-3 days. Please return to the ED for any worsening symptoms or concerns. Prescriptions: No Action warfarin 5 mg tablet 5 mg PO DAILY Qty: 90 RF: 0 lidocaine HCl [Aspercreme (lidocaine HCl)] 4 % cream 1 appl topical BID PRN (Reason: pain) Qty: 120 RF: 0 acetaminophen-codeine 300-30 mg tablet 1 tab PO Q8H PRN (Reason: pain) Qty: 10 RF: 0 ondansetron 4 mg tablet,disintegrating 4 mg PO Q6-8H PRN (Reason: nausea and vomiting) Qty: 14 RF: 0 Tasigna 150 mg capsule 300 mg PO BID RF: 0 hydroxyzine HCl 50 mg tablet PO RF: 0 metoprolol succinate 50 mg tablet extended release 24 hr 50 mg PO DAILY RF: 0 Stand Alone Forms: Work/School Release
[2021-09-30 16:38] LABS: Basophils Percent Auto 0.1 % (0-2); Eosinophils Absolute Auto 0.3 X10*3/uL (0.0-0.4); Hematocrit 36.3 % (37.0-47.0); Hemoglobin 11.7 g/dl (12.0-16.0); Imm Gran Abs Auto 0.02 X10*3/uL (0.00-0.03); Imm Gran Pct Auto 0.3 % (0.0-0.4); Lymphocytes Absolute Auto 1.6 X10*3/uL (1.2-4.9); MANUAL DIFF FLAG NO; Mean Corpuscular HGB Conc 32.2 g/dl (31.0-35.0); Mean Corpuscular Hemoglobin 27.2 pg (27.0-33.0); Mean Corpuscular Volume 84.4 fL (80.0-98.0); Mean Platelet Volume 9.5 fL (9.4-12.3); Monocytes Absolute Auto 0.4 X10*3/uL (0.1-1.2); Monocytes Percent Auto 6.4 % (2-11); Neutrophils Absolute Auto 4.5 x10*3/uL (2.0-8.3); Neutrophils Percent Auto 66.2 % (45-73); Platelet Count 232 X10*3/uL (160-400); Red Cell Distribution Width 16.2 % (11.0-16.0); White Blood Count 6.8 X10*3/uL (4.8-10.8)
[2021-09-30 16:49] LABS: INTERNATIONAL NORM RATIO 3.6 (0.9-1.1); Prothrombin Time 42.1 SEC (9.9-13.0)
[2021-09-30 16:55] LABS: Anion Gap 11 (12-20); Blood Urea Nitrogen 10 mg/dL (9-16); Carbon Dioxide 23 mmol/L (22-29); Chloride 110 mmol/L (96-108); Creatinine Clr Calc Pharmacy 79.5; Estimated Glomerular Filt Rate > 60; Glucose Random 87 mg/dL (60-115); Magnesium 2.3 mg/dL (1.6-2.6); Sodium 140 mmol/L (135-145)
[2021-09-30 17:29] VITALS: TEMP 36.7
== END 2021-09-30 17:41 | disposition home or self-care (01) ==
PROVIDERS: Nurse Practitioner Family; Emergency Provider Emergency Medicine; PCP Internal Medicine
DX: S86.911A Strain of unspecified muscle(s) and tendon(s) at lower leg level, right leg, initial encounter (principal); X50.1XXA Overexertion from prolonged static or awkward postures, initial encounter; M79.661 Pain in right lower leg; Y93.F9 Activity, other caregiving; Y92.230 Patient room in hospital as the place of occurrence of the external cause; Y99.0 Civilian activity done for income or pay; I25.2 Old myocardial infarction; C92.10 Chronic myeloid leukemia, BCR/ABL-positive, not having achieved remission; F17.200 Nicotine dependence, unspecified, uncomplicated; Z86.73 Personal history of transient ischemic attack (TIA), and cerebral infarction without residual deficits; Z95.2 Presence of prosthetic heart valve; Z79.01 Long term (current) use of anticoagulants
CPT/HCPCS: 36415; 80048; 83735; 85025; 85610; 93971; 99283; 99284

== ENCOUNTER 2022-01-29 15:29 | Emergency (ER) | payer OTHER, SELFPAY ==
[2022-01-29 15:32] VITALS: BP 168/84; PULSE 95; RESP 16; TEMP 36.8; O2SAT 99; BMI 26.5
--- NOTE | 2022-01-29 15:44 | ED.GENADULT ---
HPI - General Adult General Chief complaint: Upper Respiratory Symptoms Stated complaint: sore throat and body aches Time Seen by Provider: 01/29/22 15:43 Source: patient Mode of arrival: ambulatory Limitations: no limitations Related Data Home Medications Medication Instructions Recorded Confirmed hydroxyzine HCl 50 mg tablet mg PO 10/14/20 10/14/20 metoprolol succinate 50 mg 50 mg PO DAILY 10/14/20 10/14/20 tablet,extended release 24 hr nilotinib 150 mg capsule 300 mg PO BID 10/14/20 10/14/20 Previous Rx's Medication Instructions Recorded warfarin 5 mg tablet 5 mg PO DAILY #90 tab 06/17/20 acetaminophen 300 mg-codeine 30 mg 1 tab PO Q8H PRN #10 tab 04/25/21 tablet lidocaine HCl 4 % topical cream 1 appl TOPICAL BID PRN #120 g 04/25/21 (Aspercreme (lidocaine HCl)) ondansetron 4 mg disintegrating 4 mg PO Q6-8H PRN #14 tab 08/02/21 tablet Allergies Allergy/AdvReac Type Severity Reaction Status Date / Time cephalexin [From KEFLEX] Allergy Severe ANGIOEDEMA Verified 10/11/20 08:09 Penicillins [PCN] Allergy Severe DIFF Verified 10/11/20 08:09 BREATHING pilocarpine [PILOCARPINE] Allergy Severe DIFFICULTY Verified 10/11/20 08:09 BREATHING prochlorperazine Allergy Severe DIFFICULTY Verified 10/11/20 08:09 [From COMPAZINE] BREATHING PMFSH Past Medical History Medical History delivery delivered H/O Sjogren's disease Leukemia Myocardial infarct Stroke Surgical History History of heart surgery Social History Social History Alcohol intake: unknown Patient Tobacco Use Status: Former Tobacco user Substance Use Type: Heroin Advance Directives: Yes Advance Directives Information Provided: Yes Advance Directives on File: No Physical Exam ED Vital Signs: Vital Signs - 24 hr 01/29/22 15:32 Temperature 98.2 F Pulse Rate 95 Respiratory Rate 16 Blood Pressure 168/84 H Pulse Oximetry 99 BMI result Body Mass Index 26.5 Discharge Plan Discharge Prescriptions: No Action warfarin 5 mg tablet 5 mg PO DAILY Qty: 90 0RF Protocol: Dose Management Condition: Wednesday (Week One) Dose/Route: 10 mg Instruction: 2 x 5 mg tablets Condition: Wednesday Dose/Route: 10 mg Instruction: 2 x 5 mg tablets Condition: Wednesday Dose/Route: 10 mg Instruction: 2 x 5 mg tablets Condition: Wednesday Dose/Route: 10 mg Instruction: 2 x 5 mg tablets Condition: Dose/Route: 10 mg Instruction: 2 x 5 mg tablets Condition: Wednesday Dose/Route: 10 mg Instruction: 2 x 5 mg tablets Condition: Wednesday Dose/Route: 10 mg Instruction: 2 x 5 mg tablets Condition: Wednesday (Week Two) Dose/Route: 10 mg Instruction: 2 x 5 mg tablets Condition: Wednesday Dose/Route: 10 mg Instruction: 2 x 5 mg tablets Condition: Wednesday Dose/Route: 10 mg Instruction: 2 x 5 mg tablets Condition: Wednesday Dose/Route: 10 mg Instruction: 2 x 5 mg tablets Condition: Dose/Route: 10 mg Instruction: 2 x 5 mg tablets Condition: Wednesday Dose/Route: 10 mg Instruction: 2 x 5 mg tablets Condition: Wednesday Dose/Route: 10 mg Instruction: 2 x 5 mg tablets Protocol Text: Adjustment Start Date: Wednesday10/14/20 INR Value: 3.3 INR Date: 10/14/20 Recheck Date: 10/28/20 lidocaine HCl [Aspercreme (lidocaine HCl)] 4 % cream 1 appl topical BID PRN (Reason: pain) Qty: 120 0RF acetaminophen-codeine 300-30 mg tablet 1 tab PO Q8H PRN (Reason: pain) Qty: 10 0RF ondansetron 4 mg tablet,disintegrating 4 mg PO Q6-8H PRN (Reason: nausea and vomiting) Qty: 14 0RF Tasigna 150 mg capsule 300 mg PO BID 0RF hydroxyzine HCl 50 mg tablet PO 0RF metoprolol succinate 50 mg tablet extended release 24 hr 50 mg PO DAILY 0RF
[2022-01-29 16:00] LABS: Strep A Nucleic Acid Negative (Negative)
[2022-01-29 16:16] LABS: COVID-19 Test Negative (Negative); IDNOW Serial# 16C4AD1C
--- NOTE | 2022-01-29 16:35 | ED.URI ---
HPI - URI/Sore Throat General Chief Complaint: Upper Respiratory Symptoms Stated Complaint: sore throat and body aches Time Seen by Provider: 01/29/22 15:43 Source: patient Mode of arrival: ambulatory Limitations: no limitations History of Present Illness HPI Narrative: 52 yo female with history of MVR on coumadin here with sore throat, headache, body aches with waking. No difficulty breathing, chest pain, vomiting, diarrhea, abdominal pain. Received covid vaccine x3 and flu vaccine Related Data Home Medications Medication Instructions Recorded Confirmed hydroxyzine HCl 50 mg tablet mg PO 10/14/20 10/14/20 metoprolol succinate 50 mg 50 mg PO DAILY 10/14/20 10/14/20 tablet,extended release 24 hr nilotinib 150 mg capsule 300 mg PO BID 10/14/20 10/14/20 Previous Rx's Medication Instructions Recorded warfarin 5 mg tablet 5 mg PO DAILY #90 tab 06/17/20 acetaminophen 300 mg-codeine 30 mg 1 tab PO Q8H PRN #10 tab 04/25/21 tablet lidocaine HCl 4 % topical cream 1 appl TOPICAL BID PRN #120 g 04/25/21 (Aspercreme (lidocaine HCl)) ondansetron 4 mg disintegrating 4 mg PO Q6-8H PRN #14 tab 08/02/21 tablet Allergies Allergy/AdvReac Type Severity Reaction Status Date / Time cephalexin [From KEFLEX] Allergy Severe ANGIOEDEMA Verified 10/11/20 08:09 Penicillins [PCN] Allergy Severe DIFF Verified 10/11/20 08:09 BREATHING pilocarpine [PILOCARPINE] Allergy Severe DIFFICULTY Verified 10/11/20 08:09 BREATHING prochlorperazine Allergy Severe DIFFICULTY Verified 10/11/20 08:09 [From COMPAZINE] BREATHING Review of Systems Review of Systems: Yes all other systems are reviewed and are negative Constitutional: Constitutional: Reports no additional constitutional complaints, Reports body ache(s), Denies chills, Denies fever(s), Reports headache(s) and Denies weakness Eyes: Eyes: Reports no additional eye complaints and Denies change in vision ENT: Reports system reviewed and no additional complaints, except as documented, Denies dizziness, Reports headache(s), Denies nasal congestion, Denies nasal discharge, Denies neck pain and Reports sore throat Cardiovascular: Cardiovascular: Reports no additional cardiovascular complaints, Denies chest pain, Denies leg edema and Denies dyspnea Respiratory: Respiratory: Reports no additional respiratory complaints, Denies cough and Denies dyspnea Gastrointestinal: Gastrointestinal: Reports no additional gastrointestinal complaints, Denies abdominal pain, Denies diarrhea, Denies nausea and Denies vomiting Genitourinary: Genitourinary: Reports no additional female genitourinary complaints and Denies urinary incontinence Musculoskeletal: Musculoskeletal: Reports no additional musculoskeletal complaints, Denies back pain, Denies arthralgias, Denies joint swelling, Denies neck pain, Denies numbness and Denies tingling Integumentary/Breasts: Skin/Breast: Reports system reviewed and no additional complaints, except as docu and Denies rash Neurologic: Reports system reviewed and no additional complaints, except as documented, Denies Abnormal speech present, Denies dizziness, Reports headache(s), Denies numbness, Denies tingling and Denies weakness PMFSH Past Medical History Attestation statement: The following information was validated with the patient. Source: old records reviewed and nursing notes reviewed Medical History delivery delivered H/O Sjogren's disease Leukemia Myocardial infarct Stroke Surgical History History of heart surgery Social History Social History Alcohol intake: unknown Patient Tobacco Use Status: Former Tobacco user Substance Use Type: Heroin Advance Directives: Yes Advance Directives Information Provided: Yes Advance Directives on File: No Physical Exam Vital Signs: Vital Signs: Last Vital Signs Temp 98.2 F 01/29/22 15:32 Pulse 95 01/29/22 15:32 Resp 16 01/29/22 15:32 BP 168/84 H 01/29/22 15:32 Pulse Ox 99 01/29/22 15:32 BMI result Body Mass Index 26.5 Const: General: cooperative, healthy appearing, comfortable and no acute distress Orientation/consciousness: patient oriented x3 Limitations: no limitations HEENT: Head: Yes normal to inspection Ears: hearing grossly normal bilaterally and TM's normal bilaterally General nose exam: Normal external nose present Face and sinus: Yes normal facial exam Mouth: Normal oral and palatal mucosa present Throat: Yes posterior oropharynx normal, Yes tonsils normal and Yes uvula midline Eyes: General: appearance normal, both eyes and all related structures Pupils: Equal, round and reactive pupils present Neck: Neck: Yes normal visual inspection, Yes full ROM and Yes no lymphadenopathy Chest: Chest palpation & inspection: normal inspection of the chest Resp: Effort & Inspection: normal respiratory effort Auscultation: clear to auscultation bilaterally Cardio: Rate: regular rate Rhythm: regular rhythm Peripheral pulses: Peripheral pulses 2+ throughout GI: Inspection: Yes normal to inspection Palpation (GI): Soft to palpation and nontender Auscultation: normal bowel sounds Back/Spine/Pelvis: Thoracic/Lumbar Spine: thoracic and lumbar spine normal to inspection Skin: General skin exam: no rashes or lesions noted Neuro: General: patient oriented x3, no focal motor deficits and normal sensation to monofilament Cranial nerves: Yes Equal, round and reactive pupils present Cognition (Neuro): normal cognition Speech: No Abnormal speech present Gait exam (Neuro): Normal gait present Motor exam (neuro): 5/5 motor strength present throughout Extrem: General: Yes normal to inspection Course Course Course Narrative: 52 yo female here with waking with sore throat, headache and body aches. Exam is benign. Will check flu, covid and strep testing. patient requesting INR check Reevaluation(s) Reevaluation #1: Testing for flu, COVID and strep were all negative. INR is 2.1. Likely viral syndrome. Reviewed worrisome signs and symptoms of when to return to the emergency department. Comfortable discharge home. Time: 18:05 MDM - URI/Sore Throat Medical Records Attestation: I reviewed the patient's medical records. Lab Data Attestation: I reviewed the patient's lab results. Labs: Lab Results 01/29/22 01/29/22 01/29/22 Range/Units 15:38 15:38 16:36 PT (9.9-13.0) SEC INR (0.9-1.1) COVID-19 (MARÍA) Negative (Negative) COVID-19 Clin Com See Note Influenza Type A (ARTURO) Negative (Negative) Influenza Type B (ARTURO) Negative (Negative) Influenza A & B Note See Note S. pyogenes GrpA ARTURO Negative (Negative) 01/29/22 Range/Units 17:49 PT 24.3 H (9.9-13.0) SEC INR 2.1 H (0.9-1.1) COVID-19 (MARÍA) (Negative) COVID-19 Clin Com Influenza Type A (ARTURO) (Negative) Influenza Type B (ARTURO) (Negative) Influenza A & B Note S. pyogenes GrpA ARTURO (Negative) Discharge Plan Discharge Clinical Impression: Viral infection Patient Disposition: Home, Self-Care Instructions: Viral Syndrome (ED) Additional Instructions: Testing for flu, covid and strep are negative Increase fluids, rest Alternate motrin/tylenol for pain or fever as needed Your INR is 2.1 Prescriptions: No Action warfarin 5 mg tablet 5 mg PO DAILY Qty: 90 0RF Protocol: Dose Management Condition: Wednesday (Week One) Dose/Route: 10 mg Instruction: 2 x 5 mg tablets Condition: Wednesday Dose/Route: 10 mg Instruction: 2 x 5 mg tablets Condition: Wednesday Dose/Route: 10 mg Instruction: 2 x 5 mg tablets Condition: Wednesday Dose/Route: 10 mg Instruction: 2 x 5 mg tablets Condition: Dose/Route: 10 mg Instruction: 2 x 5 mg tablets Condition: Wednesday Dose/Route: 10 mg Instruction: 2 x 5 mg tablets Condition: Wednesday Dose/Route: 10 mg Instruction: 2 x 5 mg tablets Condition: Wednesday (Week Two) Dose/Route: 10 mg Instruction: 2 x 5 mg tablets Condition: Wednesday Dose/Route: 10 mg Instruction: 2 x 5 mg tablets Condition: Wednesday Dose/Route: 10 mg Instruction: 2 x 5 mg tablets Condition: Wednesday Dose/Route: 10 mg Instruction: 2 x 5 mg tablets Condition: Dose/Route: 10 mg Instruction: 2 x 5 mg tablets Condition: Wednesday Dose/Route: 10 mg Instruction: 2 x 5 mg tablets Condition: Wednesday Dose/Route: 10 mg Instruction: 2 x 5 mg tablets Protocol Text: Adjustment Start Date: Wednesday10/14/20 INR Value: 3.3 INR Date: 10/14/20 Recheck Date: 10/28/20 lidocaine HCl [Aspercreme (lidocaine HCl)] 4 % cream 1 appl topical BID PRN (Reason: pain) Qty: 120 0RF acetaminophen-codeine 300-30 mg tablet 1 tab PO Q8H PRN (Reason: pain) Qty: 10 0RF ondansetron 4 mg tablet,disintegrating 4 mg PO Q6-8H PRN (Reason: nausea and vomiting) Qty: 14 0RF Tasigna 150 mg capsule 300 mg PO BID 0RF hydroxyzine HCl 50 mg tablet PO 0RF metoprolol succinate 50 mg tablet extended release 24 hr 50 mg PO DAILY 0RF Referrals: Physician,Unknown J [Primary Care Provider] - Stand Alone Forms: Work/School Release
[2022-01-29] MEDS: Acetaminophen 325 MG TABLET 975 MG PO (16:41)
[2022-01-29 17:12] LABS: IDNOW Serial# 16C4AD1C; Influenza A Negative (Negative); Influenza B2 Negative (Negative)
[2022-01-29 17:59] LABS: INTERNATIONAL NORM RATIO 2.1 (0.9-1.1); Prothrombin Time 24.3 SEC (9.9-13.0)
== END 2022-01-29 18:33 | disposition home or self-care (01) ==
PROVIDERS: Nurse Practitioner Family; Emergency Provider Internal Medicine
DX: B34.9 Viral infection, unspecified (principal); M79.10 Myalgia, unspecified site; R51.9 Headache, unspecified; Z20.822 Contact with and (suspected) exposure to COVID-19; Z79.01 Long term (current) use of anticoagulants; Z79.899 Other long term (current) drug therapy; Z87.891 Personal history of nicotine dependence
CPT/HCPCS: 85610; 87502; 87635; 87651; 99283

== ENCOUNTER 2022-11-22 13:44 | Emergency (ER) | payer OTHER, SELFPAY ==
--- NOTE | ~2022-11-22 | XR_ITS ---
EXAMINATION: XR chest 2V CLINICAL INFORMATION: Reason for Exam right sided lung pain COMPARISON: Prior chest x-ray 08/11/2021 TECHNIQUE: XR chest 2V Lungs and Maricel: Both lungs are clear. Pleura: Normal. Costophrenic angles are sharp. No pneumothorax. Heart: Heart valve prosthesis is in place unchanged. The heart is normal in size. Mediastinum: The mediastinum is within normal limits.. Bones: Sternotomy wires in place unchanged stable. XR/XR chest 2V IMPRESSION: No radiographic evidence of acute cardiopulmonary disease.
[2022-11-22 14:00] VITALS: BP 167/63; PULSE 87; RESP 16; TEMP 36.6; O2SAT 100; BMI 25.7
--- NOTE | 2022-11-22 14:01 | ECG_ITS ---
Test Reason : chest pain Blood Pressure : / mmHG Vent. Rate : 084 BPM Atrial Rate : 084 BPM P-R Int : 138 ms QRS Dur : 084 ms QT Int : 380 ms P-R-T Axes : 000 060 010 degrees QTc Int : 449 ms Normal sinus rhythm Nonspecific T wave abnormality Abnormal ECG When compared with ECG of 02-AUG-2021 08:53, Nonspecific T wave abnormality, worse in Anterior leads Referred By: Lurdes Fleming Electronically Signed By:Maksim Hyman
--- NOTE | 2022-11-22 14:02 | ED_ITS ---
HPI - Chest Pain General Chief Complaint: Chest Pain Stated Complaint: R lung pain when breathing Time Seen by Provider: 11/22/22 14:22 Related Data Home Medications Medication Instructions Recorded Confirmed hydroxyzine HCl 50 mg tablet mg PO 10/14/20 10/14/20 metoprolol succinate 50 mg 50 mg PO DAILY 10/14/20 10/14/20 tablet,extended release 24 hr nilotinib 150 mg capsule 300 mg PO BID 10/14/20 10/14/20 Previous Rx's Medication Instructions Recorded warfarin 5 mg tablet 5 mg PO DAILY #90 tabs 06/17/20 acetaminophen 300 mg-codeine 30 mg 1 tab PO Q8H PRN pain #10 tabs 04/25/21 tablet lidocaine HCl 4 % topical cream 1 appl topical BID PRN pain #120 04/25/21 (Aspercreme (lidocaine HCl)) grams ondansetron 4 mg disintegrating 4 mg PO Q6-8H PRN nausea and 08/02/21 tablet vomiting #14 tabs Allergies Allergy/AdvReac Type Severity Reaction Status Date / Time cephalexin [From KEFLEX] Allergy Severe ANGIOEDEMA Verified 10/11/20 08:09 Penicillins [PCN] Allergy Severe DIFF Verified 10/11/20 08:09 BREATHING pilocarpine [PILOCARPINE] Allergy Severe DIFFICULTY Verified 10/11/20 08:09 BREATHING prochlorperazine Allergy Severe DIFFICULTY Verified 10/11/20 08:09 [From COMPAZINE] BREATHING PMFSH Past Medical History Medical History delivery delivered H/O Sjogren's disease Leukemia Myocardial infarct Stroke Surgical History History of heart surgery Social History Social History Alcohol intake: never Patient Tobacco Use Status: Former Tobacco user Smoked in Last 30 Days: No Use of substances other than those prescribed or required for medical reasons: No Substance Use Type: Heroin Advance Directives: No Advance Directives Information Provided: Yes Patient : No Physical Exam Vital Signs: Vital Signs: Last Vital Signs Temp 98.1 F 11/22/22 18:11 Pulse 85 11/22/22 18:11 Resp 16 11/22/22 18:11 BP 150/75 H 11/22/22 18:11 Pulse Ox 100 11/22/22 15:08 O2 Del Method 11/22/22 15:08 BMI result Body Mass Index 25.7 Course Course Course Narrative: KARLA - 52 y/o female with history of Sjogren's disease, hx CT, hx mechanical mitral valve on Coumadin, hx CVA, hx leukemia 2019 who presents to the ER for evaluation of acute onset of right sided, pleurtic type chest and right sided back pain that started about 35 minutes ago when she was sitting on her cough. It came on gradually, described as a pressure - worse with inspiration and m ovement. Non-reproducible in triage. VSS Plan: EKG, CXR, labs, coags (currently on Lovenox bridge w/ Coumadin due to subtherapeutic INR) Medications Administered Discontinued Medications Generic Name Dose Route Start Last Admin Trade Name Freq PRN Reason Stop Dose Admin Oxycodone HCl 5 mg 11/22/22 16:32 11/22/22 16:36 Oxycodone Hcl Immed Release 5 Mg Tablet PO 11/22/22 16:33 5 mg ONCE ONE Administration Medical Decision Making Lab Data 11/22/22 14:47 11/22/22 14:47 Labs: Lab Results 11/22/22 11/22/22 11/22/22 Range/Units 14:20 14:47 14:47 WBC 5.0 (4.8-10.8) X10*3/uL RBC 4.79 (4.20-5.50) X10*6/uL Hgb 13.1 (12.0-16.0) g/dl Hct 40.7 (37.0-47.0) % MCV 85.0 (80.0-98.0) fL MCH 27.3 (27.0-33.0) pg MCHC 32.2 (31.0-35.0) g/dl RDW 14.6 (11.0-16.0) % Plt Count 233 (160-400) X10*3/uL MPV 9.6 (9.4-12.3) fL Immature Gran % (Auto) 0.2 (0.0-0.4) % Neut % (Auto) 54.8 (45-73) % Lymph % (Auto) 32.6 (20-40) % Eddy % (Auto) 6.4 (2-11) % Eos % (Auto) 5.6 H (0-4) % Baso % (Auto) 0.4 (0-2) % Lymph # (Auto) 1.6 (1.2-4.9) X10*3/uL Eddy # (Auto) 0.3 (0.1-1.2) X10*3/uL Eos # (Auto) 0.3 (0.0-0.4) X10*3/uL Baso # (Auto) 0.0 (0.0-0.2) X10*3/uL Abs Immat Gran (auto) 0.01 (0.00-0.03) X10*3/uL Absolute Neuts (auto) 2.7 (2.0-8.3) x10*3/uL Absolute Nucleated RBC 0.000 (0.0-0.012) X10*3/uL Nucleated RBC % (auto) 0.0 (0.0-0.2) /100WBC PT 16.0 H (10.0-13.1) SEC INR 1.4 H (0.9-1.1) APTT 66.3 H* (26.0-36.4) SEC D-Dimer High Sensitivty NG/ML Sodium (135-145) mmol/L Potassium (3.3-5.1) mmol/L Chloride (96-108) mmol/L Carbon Dioxide (22-29) mmol/L Anion Gap (12-20) BUN (9-16) mg/dL Creatinine (0.5-1.4) mg/dL Estim Creat Clear Calc Estimated GFR Random Glucose (60-115) mg/dL Calcium (8.4-10.2) mg/dL Magnesium (1.6-2.6) mg/dL Total Bilirubin (0.0-1.0) mg/dL Direct Bilirubin (0.0-0.5) mg/dL AST (5-31) U/L ALT (0-31) U/L Alkaline Phosphatase (39-117) U/L Troponin I High Sens (<3.5-17.0) ng/L B-Natriuretic Peptide (<100) pg/mL Total Protein (6.5-8.0) g/dL Albumin (3.5-5.0) g/dL COVID-19 (MARÍA) Negative (Negative) COVID-19 Clin Com See Note 11/22/22 11/22/22 11/22/22 Range/Units 14:47 14:47 14:49 WBC (4.8-10.8) X10*3/uL RBC (4.20-5.50) X10*6/uL Hgb (12.0-16.0) g/dl Hct (37.0-47.0) % MCV (80.0-98.0) fL MCH (27.0-33.0) pg MCHC (31.0-35.0) g/dl RDW (11.0-16.0) % Plt Count (160-400) X10*3/uL MPV (9.4-12.3) fL Immature Gran % (Auto) (0.0-0.4) % Neut % (Auto) (45-73) % Lymph % (Auto) (20-40) % Eddy % (Auto) (2-11) % Eos % (Auto) (0-4) % Baso % (Auto) (0-2) % Lymph # (Auto) (1.2-4.9) X10*3/uL Eddy # (Auto) (0.1-1.2) X10*3/uL Eos # (Auto) (0.0-0.4) X10*3/uL Baso # (Auto) (0.0-0.2) X10*3/uL Abs Immat Gran (auto) (0.00-0.03) X10*3/uL Absolute Neuts (auto) (2.0-8.3) x10*3/uL Absolute Nucleated RBC (0.0-0.012) X10*3/uL Nucleated RBC % (auto) (0.0-0.2) /100WBC PT (10.0-13.1) SEC INR (0.9-1.1) APTT (26.0-36.4) SEC D-Dimer High Sensitivty < 150 NG/ML Sodium 140 (135-145) mmol/L Potassium 3.8 (3.3-5.1) mmol/L Chloride 106 (96-108) mmol/L Carbon Dioxide 26 (22-29) mmol/L Anion Gap 12 (12-20) BUN 11 (9-16) mg/dL Creatinine 0.78 (0.5-1.4) mg/dL Estim Creat Clear Calc 75.1 Estimated GFR > 60 Random Glucose 93 (60-115) mg/dL Calcium 9.1 (8.4-10.2) mg/dL Magnesium 2.2 (1.6-2.6) mg/dL Total Bilirubin 0.5 (0.0-1.0) mg/dL Direct Bilirubin < 0.2 (0.0-0.5) mg/dL AST 43 H (5-31) U/L ALT 35 H (0-31) U/L Alkaline Phosphatase 108 (39-117) U/L Troponin I High Sens 4.8 (<3.5-17.0) ng/L B-Natriuretic Peptide (<100) pg/mL Total Protein 7.4 (6.5-8.0) g/dL Albumin 4.4 (3.5-5.0) g/dL COVID-19 (MARÍA) (Negative) COVID-19 Clin Com 11/22/22 11/22/22 Range/Units 14:49 18:17 WBC (4.8-10.8) X10*3/uL RBC (4.20-5.50) X10*6/uL Hgb (12.0-16.0) g/dl Hct (37.0-47.0) % MCV (80.0-98.0) fL MCH (27.0-33.0) pg MCHC (31.0-35.0) g/dl RDW (11.0-16.0) % Plt Count (160-400) X10*3/uL MPV (9.4-12.3) fL Immature Gran % (Auto) (0.0-0.4) % Neut % (Auto) (45-73) % Lymph % (Auto) (20-40) % Eddy % (Auto) (2-11) % Eos % (Auto) (0-4) % Baso % (Auto) (0-2) % Lymph # (Auto) (1.2-4.9) X10*3/uL Eddy # (Auto) (0.1-1.2) X10*3/uL Eos # (Auto) (0.0-0.4) X10*3/uL Baso # (Auto) (0.0-0.2) X10*3/uL Abs Immat Gran (auto) (0.00-0.03) X10*3/uL Absolute Neuts (auto) (2.0-8.3) x10*3/uL Absolute Nucleated RBC (0.0-0.012) X10*3/uL Nucleated RBC % (auto) (0.0-0.2) /100WBC PT (10.0-13.1) SEC INR (0.9-1.1) APTT (26.0-36.4) SEC D-Dimer High Sensitivty NG/ML Sodium (135-145) mmol/L Potassium (3.3-5.1) mmol/L Chloride (96-108) mmol/L Carbon Dioxide (22-29) mmol/L Anion Gap (12-20) BUN (9-16) mg/dL Creatinine (0.5-1.4) mg/dL Estim Creat Clear Calc Estimated GFR Random Glucose (60-115) mg/dL Calcium (8.4-10.2) mg/dL Magnesium (1.6-2.6) mg/dL Total Bilirubin (0.0-1.0) mg/dL Direct Bilirubin (0.0-0.5) mg/dL AST (5-31) U/L ALT (0-31) U/L Alkaline Phosphatase (39-117) U/L Troponin I High Sens 4.7 (<3.5-17.0) ng/L B-Natriuretic Peptide < 10 (<100) pg/mL Total Protein (6.5-8.0) g/dL Albumin (3.5-5.0) g/dL COVID-19 (MARÍA) (Negative) COVID-19 Clin Com Discharge Plan Discharge Clinical Impression: Pleurisy, Atypical chest pain Patient Disposition: Home, Self-Care Instructions: Chest Pain (ED), Pleurisy (ED) Additional Instructions: return to the ED immediately for worsening right-sided chest pain, abdominal pain, nausea, vomiting, chest pain inspiration, leg swelling, calf pain, coughing up blood, fever, chills, back pain, dysuria, hematuria, urinary / bowel incontinence, or any other concerning symptoms. Please follow-up with the appointment tomorrow for repeat labs. please follow-up with primary care provider. Your INR today was 1.4.. You're pTT is 66.3. Tylenol Over the counter can be used for pain. Prescriptions: No Action warfarin 5 mg tablet 5 mg PO DAILY Qty: 90 0RF Protocol: Dose Management Condition: Wednesday (Week One) Dose/Route: 10 mg Instruction: 2 x 5 mg tablets Condition: Wednesday Dose/Route: 10 mg Instruction: 2 x 5 mg tablets Condition: Wednesday Dose/Route: 10 mg Instruction: 2 x 5 mg tablets Condition: Wednesday Dose/Route: 10 mg Instruction: 2 x 5 mg tablets Condition: Dose/Route: 10 mg Instruction: 2 x 5 mg tablets Condition: Wednesday Dose/Route: 10 mg Instruction: 2 x 5 mg tablets Condition: Wednesday Dose/Route: 10 mg Instruction: 2 x 5 mg tablets Condition: Wednesday (Week Two) Dose/Route: 10 mg Instruction: 2 x 5 mg tablets Condition: Wednesday Dose/Route: 10 mg Instruction: 2 x 5 mg tablets Condition: Wednesday Dose/Route: 10 mg Instruction: 2 x 5 mg tablets Condition: Wednesday Dose/Route: 10 mg Instruction: 2 x 5 mg tablets Condition: Dose/Route: 10 mg Instruction: 2 x 5 mg tablets Condition: Wednesday Dose/Route: 10 mg Instruction: 2 x 5 mg tablets Condition: Wednesday Dose/Route: 10 mg Instruction: 2 x 5 mg tablets Protocol Text: Adjustment Start Date: Wednesday10/14/20 INR Value: 3.3 INR Date: 10/14/20 Recheck Date: 10/28/20 lidocaine HCl [Aspercreme (lidocaine HCl)] 4 % cream 1 appl topical BID PRN (Reason: pain) Qty: 120 0RF acetaminophen-codeine 300-30 mg tablet 1 tab PO Q8H PRN (Reason: pain) Qty: 10 0RF ondansetron 4 mg tablet,disintegrating 4 mg PO Q6-8H PRN (Reason: nausea and vomiting) Qty: 14 0RF Tasigna 150 mg capsule 300 mg PO BID hydroxyzine HCl 50 mg tablet PO metoprolol succinate 50 mg tablet extended release 24 hr 50 mg PO DAILY Referrals: [facility] – [place] Cardiovascular Services [Provider Group] - 2 weeks Neha Clements [Emergency Nurse] - 2 days Stand Alone Forms: Work/School Release Print Language: Romansh
--- NOTE | 2022-11-22 14:33 | ED_ITS ---
HPI - General Adult General Chief complaint: Chest Pain <ELISSA Silverio Last Filed: 11/22/22 18:29> Stated complaint: R lung pain when breathing <ELISSA Silverio Last Filed: 11/22/22 18:29> Time Seen by Provider: 11/22/22 14:22 <ELISSA Silverio Last Filed: 11/22/22 18:29> Source: patient <ELISSA Silverio - Last Filed: 11/22/22 18:29> Mode of arrival: ambulatory <ELISSA Silverio Last Filed: 11/22/22 18:29> Limitations: no limitations <ELISSA Silverio Last Filed: 11/22/22 18:29> History of Present Illness HPI narrative: 52-year-old female history of mitral valve replacement, hysterectomy, stroke, and Leukemia presents to the ED for right-sided lung pain with pleurisy and worse on movement that occurred 25 minutes before coming to the ER. Patient states she was on her bed using her laptop all of sudden started having symptoms. Patient states no fever or chills. Patient denies any leg swelling, calf pain, or coughing up blood. Patient is presently on Lovenox and Coumadin. <ELISSA Silverio Last Filed: 11/22/22 18:29> Related Data Home medications: Home Medications Medication Instructions Recorded Confirmed hydroxyzine HCl 50 mg tablet mg PO 10/14/20 10/14/20 metoprolol succinate 50 mg 50 mg PO DAILY 10/14/20 10/14/20 tablet,extended release 24 hr nilotinib 150 mg capsule 300 mg PO BID 10/14/20 10/14/20 Previous Rx's Medication Instructions Recorded warfarin 5 mg tablet 5 mg PO DAILY #90 tabs 06/17/20 acetaminophen 300 mg-codeine 30 mg 1 tab PO Q8H PRN pain #10 tabs 04/25/21 tablet lidocaine HCl 4 % topical cream 1 appl topical BID PRN pain #120 04/25/21 (Aspercreme (lidocaine HCl)) grams ondansetron 4 mg disintegrating 4 mg PO Q6-8H PRN nausea and 08/02/21 tablet vomiting #14 tabs <ELISSA Silverio Last Filed: 11/22/22 18:29> Allergies/adverse reactions: Allergies Allergy/AdvReac Type Severity Reaction Status Date / Time cephalexin [From KEFLEX] Allergy Severe ANGIOEDEMA Verified 10/11/20 08:09 Penicillins [PCN] Allergy Severe DIFF Verified 10/11/20 08:09 BREATHING pilocarpine [PILOCARPINE] Allergy Severe DIFFICULTY Verified 10/11/20 08:09 BREATHING prochlorperazine Allergy Severe DIFFICULTY Verified 10/11/20 08:09 [From COMPAZINE] BREATHING <ELISSA Silverio - Last Filed: 11/22/22 18:29> Review of Systems Review of Systems: Right lung/back pain worse on movement with pleurisy. <ELISSA Silverio - Last Filed: 11/22/22 18:29> Yes all other systems are reviewed and are negative <ELISSA Silverio - Last Filed: 11/22/22 18:29> PMFSH Past Medical History Medical History: Medical History delivery delivered H/O Sjogren's disease Leukemia Myocardial infarct Stroke <ELISSA Silverio - Last Filed: 11/22/22 18:29> Surgical History: Surgical History History of heart surgery <ELISSA Silverio - Last Filed: 11/22/22 18:29> Social History Social History: Social History Alcohol intake: never Patient Tobacco Use Status: Former Tobacco user Smoked in Last 30 Days: No Use of substances other than those prescribed or required for medical reasons: No Substance Use Type: Heroin Advance Directives: No Advance Directives Information Provided: Yes Patient : No <ELISSA Silverio - Last Filed: 11/22/22 18:29> Physical Exam ED Vital Signs: Vital Signs - 24 hr 11/22/22 14:00 11/22/22 15:08 11/22/22 18:11 Temperature 98 F 98.1 F Pulse Rate 87 79 85 Respiratory Rate 16 13 16 Blood Pressure 167/63 H 129/65 150/75 H Pulse Oximetry 100 100 Oxygen Delivery Method Room Air Room Air BMI result Body Mass Index 25.7 <ELISSA Silverio Last Filed: 11/22/22 18:29> Vital Signs - 24 hr 11/22/22 14:00 11/22/22 15:08 11/22/22 18:11 Temperature 98 F 98.1 F Pulse Rate 87 79 85 Respiratory Rate 16 13 16 Blood Pressure 167/63 H 129/65 150/75 H Pulse Oximetry 100 100 Oxygen Delivery Method Room Air Room Air BMI result Body Mass Index 25.7 <ELISSA Clancy Last Filed: 11/22/22 18:50> Const General: cooperative, healthy appearing, comfortable, no acute distress, well developed, alert, awake and Physically active <ELISSA Silverio Last Filed: 11/22/22 18:29> Orientation/consciousness: oriented to person, oriented to place, oriented to time and patient oriented x3 <ELISSA Silverio Last Filed: 11/22/22 18:29> HENMT Head: Yes normal to inspection, Yes No palpable skull fracture present, Yes normocephalic, Yes atraumatic and No abrasion <ELISSA Silverio Last Filed: 11/22/22 18:29> Eyes General: appearance normal, both eyes and all related structures <ELISSA Silverio Last Filed: 11/22/22 18:29> Neck Neck: Yes normal visual inspection, Yes full ROM, Yes no lymphadenopathy, Yes no meningeal signs, Yes trachea midline, Yes supple, No anterior neck swelling and No tender <ELISSA Silverio Last Filed: 11/22/22 18:29> Chest Chest palpation & inspection: normal inspection of the chest and normal palpation of entire chest wall <ELISSA Silverio Last Filed: 11/22/22 18:29> Resp Effort & Inspection: normal respiratory effort and able to speak in complete sentences <ELISSA Silverio Last Filed: 11/22/22 18:29> Auscultation: clear to auscultation bilaterally <ELISSA Silverio Last Filed: 11/22/22 18:29> Cardio Jugular venous distension: no JVD <ELISSA Silverio Last Filed: 11/22/22 18:29> Heart sounds: S1 normal heart sound present and S2 normal heart sound present <ELISSA Silverio Last Filed: 11/22/22 18:29> GI Inspection: Yes normal to inspection and No abdominal wall ecchymosis <ELISSA Silverio Last Filed: 11/22/22 18:29> Palpation (GI): Soft to palpation, not firm, nontender, no guarding and not rigid <ELISSA Silverio Ashley Last Filed: 11/22/22 18:29> General: No CVA tenderness and Yes no CVA tenderness <ELISSA Silverio - Last Filed: 11/22/22 18:29> Back/Spine/Pelvis Back: no CVA tenderness, No CVA tenderness and No back tenderness <ELISSA Silverio Ashley Last Filed: 11/22/22 18:29> Skin General skin exam: no rashes or lesions noted and elasticity normal <ELISSA Silverio Last Filed: 11/22/22 18:29> Neuro General: oriented to person, oriented to place, oriented to time, patient oriented x3, gait normal, tone normal, moves all extremities, Normal light touch and pain sensation, no meningeal signs, no focal motor deficits and CN's II-XI intact bilaterally <ELISSA Silverio Ashley Last Filed: 11/22/22 18:29> Extrem Other: Bilateral lower extremities negative for swelling, pitting edema, calf tenderness <ELISSA Silverio Ashley Last Filed: 11/22/22 18:29> General: Yes normal to inspection and Yes full ROM <ELISSA Silverio Ashley Last Filed: 11/22/22 18:29> Psych Appearance: grossly normal, well kempt and not disheveled <ELISSA Silverio Ashley Last Filed: 11/22/22 18:29> Course Course Course Narrative: EKG, cardiac labs and D-dimer ordered. Chest x-ray ordered <ELISSA Silverio Last Filed: 11/22/22 18:29> Reevaluation(s) Reevaluation #1: D-dimer negative 1st troponin negative. EKG negative STEMI. Chest x- ray negative pneumonia, pneumothorax or hemothorax. PTT is 66.3. patient has repeat labs tomorrow with primary care provider in [place]. D Dimer negative. Well's Score Criteria 0. Patient denies any rectal bleeding, vomiting blood, coughing up blood, or bloody urine. Signed out to ELISSA Lindsay <ELISSA Silverio - Last Filed: 11/22/22 18:29> Time: 18:10 <ELISSA Silverio - Last Filed: 11/22/22 18:29> Reevaluation #2: Repeat troponin 4.7, not meeting delta criteria unlikely that this is ACS. Patient feeling better and demanding to leave to nursing staff. Will discharge home with PCP and cardiology follow-up. Educated patient on diagnosis and treatment plan, answered all question, patient verbalizes understanding. At this time patient will be discharged home, advised to return with new or worsening symptoms. Educated on worrisome signs and symptoms and when to return. At this time I feel comfortable discharge home. <ELISSA Clancy - Last Filed: 11/22/22 18:50> Time: 18:50 <ELISSA Clancy - Last Filed: 11/22/22 18:50> Medications Administered Discontinued Medications Generic Name Dose Route Start Last Admin Trade Name Freq PRN Reason Stop Dose Admin Oxycodone HCl 5 mg 11/22/22 16:32 11/22/22 16:36 Oxycodone Hcl Immed Release 5 Mg Tablet PO 11/22/22 16:33 5 mg ONCE ONE Administration <ELISSA Silverio - Last Filed: 11/22/22 18:29> Medications Administered Discontinued Medications Generic Name Dose Route Start Last Admin Trade Name Freq PRN Reason Stop Dose Admin Oxycodone HCl 5 mg 11/22/22 16:32 11/22/22 16:36 Oxycodone Hcl Immed Release 5 Mg Tablet PO 11/22/22 16:33 5 mg ONCE ONE Administration <ELISSA Clancy - Last Filed: 11/22/22 18:50> Medical Decision Making Medical Decision Making MDM Narrative: 52-year-old female presents to ED for right-sided chest pain with pleurisy. patient denies any trauma. Negative for leg swelling calf pain or coughing up blood. <ELISSA Silverio Last Filed: 11/22/22 18:29> Differential Diagnosis Differential Diagnoses: The differential diagnosis associated with the presentation includes ( PE, pneumonia, hemothorax, CHF, myocardial infarction,) <ELISSA Silverio - Last Filed: 11/22/22 18:29> Admission/Observation Consideration of admission/observation: Escalation of care including admission/observation considered <ELISSA Silverio - Last Filed: 11/22/22 18:29> Lab Data MDM Lab Attestation statement: I reviewed the patient's lab results. <ELISSA Silverio - Last Filed: 11/22/22 18:29> Result Diagrams: 11/22/22 14:47 11/22/22 14:47 <ELISSA Silverio - Last Filed: 11/22/22 18:29> Labs: Lab Results 11/22/22 11/22/22 11/22/22 Range/Units 14:20 14:47 14:47 WBC 5.0 (4.8-10.8) X10*3/uL RBC 4.79 (4.20-5.50) X10*6/uL Hgb 13.1 (12.0-16.0) g/dl Hct 40.7 (37.0-47.0) % MCV 85.0 (80.0-98.0) fL MCH 27.3 (27.0-33.0) pg MCHC 32.2 (31.0-35.0) g/dl RDW 14.6 (11.0-16.0) % Plt Count 233 (160-400) X10*3/uL MPV 9.6 (9.4-12.3) fL Immature Gran % (Auto) 0.2 (0.0-0.4) % Neut % (Auto) 54.8 (45-73) % Lymph % (Auto) 32.6 (20-40) % [place] % (Auto) 6.4 (2-11) % Eos % (Auto) 5.6 H (0-4) % Baso % (Auto) 0.4 (0-2) % Lymph # (Auto) 1.6 (1.2-4.9) X10*3/uL [place] # (Auto) 0.3 (0.1-1.2) X10*3/uL Eos # (Auto) 0.3 (0.0-0.4) X10*3/uL Baso # (Auto) 0.0 (0.0-0.2) X10*3/uL Abs Immat Gran (auto) 0.01 (0.00-0.03) X10*3/uL Absolute Neuts (auto) 2.7 (2.0-8.3) x10*3/uL Absolute Nucleated RBC 0.000 (0.0-0.012) X10*3/uL Nucleated RBC % (auto) 0.0 (0.0-0.2) /100WBC PT 16.0 H (10.0-13.1) SEC INR 1.4 H (0.9-1.1) APTT 66.3 H* (26.0-36.4) SEC D-Dimer High Sensitivty NG/ML Sodium (135-145) mmol/L Potassium (3.3-5.1) mmol/L Chloride (96-108) mmol/L Carbon Dioxide (22-29) mmol/L Anion Gap (12-20) BUN (9-16) mg/dL Creatinine (0.5-1.4) mg/dL Estim Creat Clear Calc Estimated GFR Random Glucose (60-115) mg/dL Calcium (8.4-10.2) mg/dL Magnesium (1.6-2.6) mg/dL Total Bilirubin (0.0-1.0) mg/dL Direct Bilirubin (0.0-0.5) mg/dL AST (5-31) U/L ALT (0-31) U/L Alkaline Phosphatase (39-117) U/L Troponin I High Sens (<3.5-17.0) ng/L B-Natriuretic Peptide (<100) pg/mL Total Protein (6.5-8.0) g/dL Albumin (3.5-5.0) g/dL COVID-19 (MARÍA) Negative (Negative) COVID-19 Clin Com See Note 11/22/22 11/22/22 11/22/22 Range/Units 14:47 14:47 14:49 WBC (4.8-10.8) X10*3/uL RBC (4.20-5.50) X10*6/uL Hgb (12.0-16.0) g/dl Hct (37.0-47.0) % MCV (80.0-98.0) fL MCH (27.0-33.0) pg MCHC (31.0-35.0) g/dl RDW (11.0-16.0) % Plt Count (160-400) X10*3/uL MPV (9.4-12.3) fL Immature Gran % (Auto) (0.0-0.4) % Neut % (Auto) (45-73) % Lymph % (Auto) (20-40) % [place] % (Auto) (2-11) % Eos % (Auto) (0-4) % Baso % (Auto) (0-2) % Lymph # (Auto) (1.2-4.9) X10*3/uL [place] # (Auto) (0.1-1.2) X10*3/uL Eos # (Auto) (0.0-0.4) X10*3/uL Baso # (Auto) (0.0-0.2) X10*3/uL Abs Immat Gran (auto) (0.00-0.03) X10*3/uL Absolute Neuts (auto) (2.0-8.3) x10*3/uL Absolute Nucleated RBC (0.0-0.012) X10*3/uL Nucleated RBC % (auto) (0.0-0.2) /100WBC PT (10.0-13.1) SEC INR (0.9-1.1) APTT (26.0-36.4) SEC D-Dimer High Sensitivty < 150 NG/ML Sodium 140 (135-145) mmol/L Potassium 3.8 (3.3-5.1) mmol/L Chloride 106 (96-108) mmol/L Carbon Dioxide 26 (22-29) mmol/L Anion Gap 12 (12-20) BUN 11 (9-16) mg/dL Creatinine 0.78 (0.5-1.4) mg/dL Estim Creat Clear Calc 75.1 Estimated GFR > 60 Random Glucose 93 (60-115) mg/dL Calcium 9.1 (8.4-10.2) mg/dL Magnesium 2.2 (1.6-2.6) mg/dL Total Bilirubin 0.5 (0.0-1.0) mg/dL Direct Bilirubin < 0.2 (0.0-0.5) mg/dL AST 43 H (5-31) U/L ALT 35 H (0-31) U/L Alkaline Phosphatase 108 (39-117) U/L Troponin I High Sens 4.8 (<3.5-17.0) ng/L B-Natriuretic Peptide (<100) pg/mL Total Protein 7.4 (6.5-8.0) g/dL Albumin 4.4 (3.5-5.0) g/dL COVID-19 (MARÍA) (Negative) COVID-19 Clin Com 11/22/22 11/22/22 Range/Units 14:49 18:17 WBC (4.8-10.8) X10*3/uL RBC (4.20-5.50) X10*6/uL Hgb (12.0-16.0) g/dl Hct (37.0-47.0) % MCV (80.0-98.0) fL MCH (27.0-33.0) pg MCHC (31.0-35.0) g/dl RDW (11.0-16.0) % Plt Count (160-400) X10*3/uL MPV (9.4-12.3) fL Immature Gran % (Auto) (0.0-0.4) % Neut % (Auto) (45-73) % Lymph % (Auto) (20-40) % [place] % (Auto) (2-11) % Eos % (Auto) (0-4) % Baso % (Auto) (0-2) % Lymph # (Auto) (1.2-4.9) X10*3/uL [place] # (Auto) (0.1-1.2) X10*3/uL Eos # (Auto) (0.0-0.4) X10*3/uL Baso # (Auto) (0.0-0.2) X10*3/uL Abs Immat Gran (auto) (0.00-0.03) X10*3/uL Absolute Neuts (auto) (2.0-8.3) x10*3/uL Absolute Nucleated RBC (0.0-0.012) X10*3/uL Nucleated RBC % (auto) (0.0-0.2) /100WBC PT (10.0-13.1) SEC INR (0.9-1.1) APTT (26.0-36.4) SEC D-Dimer High Sensitivty NG/ML Sodium (135-145) mmol/L Potassium (3.3-5.1) mmol/L Chloride (96-108) mmol/L Carbon Dioxide (22-29) mmol/L Anion Gap (12-20) BUN (9-16) mg/dL Creatinine (0.5-1.4) mg/dL Estim Creat Clear Calc Estimated GFR Random Glucose (60-115) mg/dL Calcium (8.4-10.2) mg/dL Magnesium (1.6-2.6) mg/dL Total Bilirubin (0.0-1.0) mg/dL Direct Bilirubin (0.0-0.5) mg/dL AST (5-31) U/L ALT (0-31) U/L Alkaline Phosphatase (39-117) U/L Troponin I High Sens 4.7 (<3.5-17.0) ng/L B-Natriuretic Peptide < 10 (<100) pg/mL Total Protein (6.5-8.0) g/dL Albumin (3.5-5.0) g/dL COVID-19 (MARÍA) (Negative) COVID-19 Clin Com <ELISSA Silverio - Last Filed: 11/22/22 18:29> Lab Results 11/22/22 11/22/22 11/22/22 Range/Units 14:20 14:47 14:47 WBC 5.0 (4.8-10.8) X10*3/uL RBC 4.79 (4.20-5.50) X10*6/uL Hgb 13.1 (12.0-16.0) g/dl Hct 40.7 (37.0-47.0) % MCV 85.0 (80.0-98.0) fL MCH 27.3 (27.0-33.0) pg MCHC 32.2 (31.0-35.0) g/dl RDW 14.6 (11.0-16.0) % Plt Count 233 (160-400) X10*3/uL MPV 9.6 (9.4-12.3) fL Immature Gran % (Auto) 0.2 (0.0-0.4) % Neut % (Auto) 54.8 (45-73) % Lymph % (Auto) 32.6 (20-40) % [place] % (Auto) 6.4 (2-11) % Eos % (Auto) 5.6 H (0-4) % Baso % (Auto) 0.4 (0-2) % Lymph # (Auto) 1.6 (1.2-4.9) X10*3/uL [place] # (Auto) 0.3 (0.1-1.2) X10*3/uL Eos # (Auto) 0.3 (0.0-0.4) X10*3/uL Baso # (Auto) 0.0 (0.0-0.2) X10*3/uL Abs Immat Gran (auto) 0.01 (0.00-0.03) X10*3/uL Absolute Neuts (auto) 2.7 (2.0-8.3) x10*3/uL Absolute Nucleated RBC 0.000 (0.0-0.012) X10*3/uL Nucleated RBC % (auto) 0.0 (0.0-0.2) /100WBC PT 16.0 H (10.0-13.1) SEC INR 1.4 H (0.9-1.1) APTT 66.3 H* (26.0-36.4) SEC D-Dimer High Sensitivty NG/ML Sodium (135-145) mmol/L Potassium (3.3-5.1) mmol/L Chloride (96-108) mmol/L Carbon Dioxide (22-29) mmol/L Anion Gap (12-20) BUN (9-16) mg/dL Creatinine (0.5-1.4) mg/dL Estim Creat Clear Calc Estimated GFR Random Glucose (60-115) mg/dL Calcium (8.4-10.2) mg/dL Magnesium (1.6-2.6) mg/dL Total Bilirubin (0.0-1.0) mg/dL Direct Bilirubin (0.0-0.5) mg/dL AST (5-31) U/L ALT (0-31) U/L Alkaline Phosphatase (39-117) U/L Troponin I High Sens (<3.5-17.0) ng/L B-Natriuretic Peptide (<100) pg/mL Total Protein (6.5-8.0) g/dL Albumin (3.5-5.0) g/dL COVID-19 (MARÍA) Negative (Negative) COVID-19 Clin Com See Note 11/22/22 11/22/22 11/22/22 Range/Units 14:47 14:47 14:49 WBC (4.8-10.8) X10*3/uL RBC (4.20-5.50) X10*6/uL Hgb (12.0-16.0) g/dl Hct (37.0-47.0) % MCV (80.0-98.0) fL MCH (27.0-33.0) pg MCHC (31.0-35.0) g/dl RDW (11.0-16.0) % Plt Count (160-400) X10*3/uL MPV (9.4-12.3) fL Immature Gran % (Auto) (0.0-0.4) % Neut % (Auto) (45-73) % Lymph % (Auto) (20-40) % [place] % (Auto) (2-11) % Eos % (Auto) (0-4) % Baso % (Auto) (0-2) % Lymph # (Auto) (1.2-4.9) X10*3/uL [place] # (Auto) (0.1-1.2) X10*3/uL Eos # (Auto) (0.0-0.4) X10*3/uL Baso # (Auto) (0.0-0.2) X10*3/uL Abs Immat Gran (auto) (0.00-0.03) X10*3/uL Absolute Neuts (auto) (2.0-8.3) x10*3/uL Absolute Nucleated RBC (0.0-0.012) X10*3/uL Nucleated RBC % (auto) (0.0-0.2) /100WBC PT (10.0-13.1) SEC INR (0.9-1.1) APTT (26.0-36.4) SEC D-Dimer High Sensitivty < 150 NG/ML Sodium 140 (135-145) mmol/L Potassium 3.8 (3.3-5.1) mmol/L Chloride 106 (96-108) mmol/L Carbon Dioxide 26 (22-29) mmol/L Anion Gap 12 (12-20) BUN 11 (9-16) mg/dL Creatinine 0.78 (0.5-1.4) mg/dL Estim Creat Clear Calc 75.1 Estimated GFR > 60 Random Glucose 93 (60-115) mg/dL Calcium 9.1 (8.4-10.2) mg/dL Magnesium 2.2 (1.6-2.6) mg/dL Total Bilirubin 0.5 (0.0-1.0) mg/dL Direct Bilirubin < 0.2 (0.0-0.5) mg/dL AST 43 H (5-31) U/L ALT 35 H (0-31) U/L Alkaline Phosphatase 108 (39-117) U/L Troponin I High Sens 4.8 (<3.5-17.0) ng/L B-Natriuretic Peptide (<100) pg/mL Total Protein 7.4 (6.5-8.0) g/dL Albumin 4.4 (3.5-5.0) g/dL COVID-19 (MARÍA) (Negative) COVID-19 Clin Com 11/22/22 11/22/22 Range/Units 14:49 18:17 WBC (4.8-10.8) X10*3/uL RBC (4.20-5.50) X10*6/uL Hgb (12.0-16.0) g/dl Hct (37.0-47.0) % MCV (80.0-98.0) fL MCH (27.0-33.0) pg MCHC (31.0-35.0) g/dl RDW (11.0-16.0) % Plt Count (160-400) X10*3/uL MPV (9.4-12.3) fL Immature Gran % (Auto) (0.0-0.4) % Neut % (Auto) (45-73) % Lymph % (Auto) (20-40) % [place] % (Auto) (2-11) % Eos % (Auto) (0-4) % Baso % (Auto) (0-2) % Lymph # (Auto) (1.2-4.9) X10*3/uL [place] # (Auto) (0.1-1.2) X10*3/uL Eos # (Auto) (0.0-0.4) X10*3/uL Baso # (Auto) (0.0-0.2) X10*3/uL Abs Immat Gran (auto) (0.00-0.03) X10*3/uL Absolute Neuts (auto) (2.0-8.3) x10*3/uL Absolute Nucleated RBC (0.0-0.012) X10*3/uL Nucleated RBC % (auto) (0.0-0.2) /100WBC PT (10.0-13.1) SEC INR (0.9-1.1) APTT (26.0-36.4) SEC D-Dimer High Sensitivty NG/ML Sodium (135-145) mmol/L Potassium (3.3-5.1) mmol/L Chloride (96-108) mmol/L Carbon Dioxide (22-29) mmol/L Anion Gap (12-20) BUN (9-16) mg/dL Creatinine (0.5-1.4) mg/dL Estim Creat Clear Calc Estimated GFR Random Glucose (60-115) mg/dL Calcium (8.4-10.2) mg/dL Magnesium (1.6-2.6) mg/dL Total Bilirubin (0.0-1.0) mg/dL Direct Bilirubin (0.0-0.5) mg/dL AST (5-31) U/L ALT (0-31) U/L Alkaline Phosphatase (39-117) U/L Troponin I High Sens 4.7 (<3.5-17.0) ng/L B-Natriuretic Peptide < 10 (<100) pg/mL Total Protein (6.5-8.0) g/dL Albumin (3.5-5.0) g/dL COVID-19 (MARÍA) (Negative) COVID-19 Clin Com <ELISSA Clancy - Last Filed: 11/22/22 18:50> Independent Interpretation I performed an independent interpretation of an: EKG (Normal Sinus Rhythm. ventricular 84. NH interval 138. QRS 84. QTC 449. Negative STEMI) and Plain X-Ray <ELISSA Silverio - Last Filed: 11/22/22 18:29> Radiology Impression Discussion of test interpretation with radiology: I have reviewed the radiologist's reading. <ELISSA Silverio - Last Filed: 11/22/22 18:29> Discharge Plan Discharge Clinical Impression: Pleurisy, Atypical chest pain <ELISSA Silverio Last Filed: 11/22/22 18:29> Patient Disposition: Home, Self-Care <ELISSA Silverio Last Filed: 11/22/22 18:29> Instructions: Chest Pain (ED), Pleurisy (ED) <ELISSA Silverio Last Filed: 11/22/22 18:29> Additional Instructions: return to the ED immediately for worsening right-sided chest pain, abdominal pain, nausea, vomiting, chest pain inspiration, leg swelling, calf pain, coughing up blood, fever, chills, back pain, dysuria, hematuria, urinary / bowel incontinence, or any other concerning symptoms. Please follow-up with the appointment tomorrow for repeat labs. please follow-up with primary care provider. Your INR today was 1.4.. You're pTT is 66.3. Tylenol Over the counter can be used for pain. <ELISSA Silverio Last Filed: 11/22/22 18:29> Prescriptions: No Action warfarin 5 mg tablet 5 mg PO DAILY Qty: 90 0RF Protocol: Dose Management Condition: Wednesday (Week One) Dose/Route: 10 mg Instruction: 2 x 5 mg tablets Condition: Wednesday Dose/Route: 10 mg Instruction: 2 x 5 mg tablets Condition: Wednesday Dose/Route: 10 mg Instruction: 2 x 5 mg tablets Condition: Wednesday Dose/Route: 10 mg Instruction: 2 x 5 mg tablets Condition: Dose/Route: 10 mg Instruction: 2 x 5 mg tablets Condition: Wednesday Dose/Route: 10 mg Instruction: 2 x 5 mg tablets Condition: Wednesday Dose/Route: 10 mg Instruction: 2 x 5 mg tablets Condition: Wednesday (Week Two) Dose/Route: 10 mg Instruction: 2 x 5 mg tablets Condition: Wednesday Dose/Route: 10 mg Instruction: 2 x 5 mg tablets Condition: Wednesday Dose/Route: 10 mg Instruction: 2 x 5 mg tablets Condition: Wednesday Dose/Route: 10 mg Instruction: 2 x 5 mg tablets Condition: Dose/Route: 10 mg Instruction: 2 x 5 mg tablets Condition: Wednesday Dose/Route: 10 mg Instruction: 2 x 5 mg tablets Condition: Wednesday Dose/Route: 10 mg Instruction: 2 x 5 mg tablets Protocol Text: Adjustment Start Date: Wednesday10/14/20 INR Value: 3.3 INR Date: 10/14/20 Recheck Date: 10/28/20 lidocaine HCl [Aspercreme (lidocaine HCl)] 4 % cream 1 appl topical BID PRN (Reason: pain) Qty: 120 0RF acetaminophen-codeine 300-30 mg tablet 1 tab PO Q8H PRN (Reason: pain) Qty: 10 0RF ondansetron 4 mg tablet,disintegrating 4 mg PO Q6-8H PRN (Reason: nausea and vomiting) Qty: 14 0RF Tasigna 150 mg capsule 300 mg PO BID hydroxyzine HCl 50 mg tablet PO metoprolol succinate 50 mg tablet extended release 24 hr 50 mg PO DAILY <ELISSA Silverio - Last Filed: 11/22/22 18:29> Referrals: Neha Clements [Emergency Nurse] - 2 days [facility] [place] [facility] [Provider Group] - 2 weeks <ELISSA Silverio - Last Filed: 11/22/22 18:29> Stand Alone Forms: Work/School Release <ELISSA Silverio - Last Filed: 11/22/22 18:29> Print Language: Swedish <ELISSA Silverio - Last Filed: 11/22/22 18:29>
[2022-11-22 14:54] LABS: COVID-19 Test Negative (Negative); IDNOW Serial# 16C4AD1C
[2022-11-22 14:57] LABS: Basophils Percent Auto 0.4 % (0-2); Eosinophils Absolute Auto 0.3 X10*3/uL (0.0-0.4); Eosinophils Percent Auto 5.6 % (0-4); Hematocrit 40.7 % (37.0-47.0); Hemoglobin 13.1 g/dl (12.0-16.0); Imm Gran Abs Auto 0.01 X10*3/uL (0.00-0.03); Imm Gran Pct Auto 0.2 % (0.0-0.4); Lymphocytes Absolute Auto 1.6 X10*3/uL (1.2-4.9); Lymphocytes Percent Auto 32.6 % (20-40); MANUAL DIFF FLAG NO; Mean Corpuscular HGB Conc 32.2 g/dl (31.0-35.0); Mean Corpuscular Hemoglobin 27.3 pg (27.0-33.0); Mean Platelet Volume 9.6 fL (9.4-12.3); Monocytes Absolute Auto 0.3 X10*3/uL (0.1-1.2); Monocytes Percent Auto 6.4 % (2-11); Neutrophils Absolute Auto 2.7 x10*3/uL (2.0-8.3); Neutrophils Percent Auto 54.8 % (45-73); Platelet Count 233 X10*3/uL (160-400); Red Blood Count 4.79 X10*6/uL (4.20-5.50); Red Cell Distribution Width 14.6 % (11.0-16.0)
[2022-11-22 15:03] LABS: INTERNATIONAL NORM RATIO 1.4 (0.9-1.1)
[2022-11-22 15:08] VITALS: BP 129/65; PULSE 79; RESP 13; O2SAT 100
--- NOTE | 2022-11-22 15:15 | PC.NURSE ---
pt AOx3, VSS. reporting right sided chest pain on inspiration and expiration and when moving arm or shoulder. Pain is only on the right side. IV inserted, labs drawn, EKG done. cardiac catheterization technologist intact - NRS.
[2022-11-22 15:19] LABS: B Type Natriuretic Peptide < 10 pg/mL (<100)
[2022-11-22 15:21] LABS: D Dimer High Sensitivity < 150 NG/ML
[2022-11-22 15:21] LABS: Partial Thromboplastin Time 66.3 SEC (26.0-36.4)
[2022-11-22 15:22] LABS: Alanine Aminotransferase 35 U/L (0-31); Albumin Level 4.4 g/dL (3.5-5.0); Alkaline Phosphatase 108 U/L (39-117); Anion Gap 12 (12-20); Aspartate Amino Transferase 43 U/L (5-31); Bilirubin Direct < 0.2 mg/dL (0.0-0.5); Bilirubin Total 0.5 mg/dL (0.0-1.0); Blood Urea Nitrogen 11 mg/dL (9-16); Calcium 9.1 mg/dL (8.4-10.2); Carbon Dioxide 26 mmol/L (22-29); Chloride 106 mmol/L (96-108); Creatinine Clr Calc Pharmacy 75.1; Estimated Glomerular Filt Rate > 60; Glucose Random 93 mg/dL (60-115); Magnesium 2.2 mg/dL (1.6-2.6); Potassium 3.8 mmol/L (3.3-5.1); Sodium 140 mmol/L (135-145); Total Protein 7.4 g/dL (6.5-8.0)
[2022-11-22 15:23] LABS: Troponin-I High Sensitivity 4.8 ng/L (<3.5-17.0)
[2022-11-22] MEDS: oxyCODONE HCl Immed Release 5 MG TABLET PO (16:36)
--- NOTE | 2022-11-22 16:37 | PC.NURSE ---
pt medicated for 8/10 pain per order
[2022-11-22 18:11] VITALS: BP 150/75; PULSE 85; RESP 16; TEMP 36.7
--- NOTE | 2022-11-22 18:11 | PC.NURSE ---
patient a&Ox3, vss, pt patient monitor nsr, pt c/o 02/20 rt chest pain which patient states is constant and no longer just when she is breathing, notified provider, will continue to monitor.
[2022-11-22 18:45] LABS: Troponin-I High Sensitivity 4.7 ng/L (<3.5-17.0)
== END 2022-11-22 19:20 | disposition home or self-care (01) ==
PROVIDERS: Physician Assistant; Emergency Provider Student in an Organized Health Care Education/Training Program
DX: R07.89 Other chest pain (principal); R07.81 Pleurodynia; R09.1 Pleurisy; R06.02 Shortness of breath; Z20.822 Contact with and (suspected) exposure to COVID-19; Z20.828 Contact with and (suspected) exposure to other viral communicable diseases; Z79.899 Other long term (current) drug therapy
CPT/HCPCS: 36415; 71046; 80048; 80076; 83735; 83880; 84484; 85025; 85379; 85610; 85730; 87635; 93005; 99284; 99285

== ENCOUNTER 2023-02-05 13:32 | Emergency (ER) | payer OTHER, SELFPAY ==
--- NOTE | ~2023-02-05 | CT_ITS ---
EXAMINATION: CT HEAD WITHOUT CONTRAST CLINICAL INFORMATION: Right-sided headache, history of CVA. COMPARISON: CT head 07/16/2021. TECHNIQUE: Contiguous axial imaging was performed from the skull base to vertex without intravenous administration of contrast. This CT examination was performed using dose optimization techniques as appropriate, variously including the following: *Automated exposure control *Adjustment of mA and/or kV according to patient size (this includes techniques or standardized protocols for targeted exams where dose is matched to indication/reason for exam; i.e. extremities or head) *Use of iterative reconstruction technique DLP: 583 mGy-cm FINDINGS: Chronic right superior cerebellar hemisphere infarct. Chronic small lacunar infarct adjacent to the left caudate ganglia. There is no evidence of acute intracranial hemorrhage or edematous territorial infarction. A few foci of hypoattenuation in the periventricular and deep white matter are consistent with mild microangiopathy. [place]-white matter differentiation is preserved. Proportional prominence of the ventricles and sulcal spaces. No evidence for obstructive hydrocephalus. No abnormal mass effect or midline shift. No extra-axial fluid collections. Redemonstration of asymmetric fatty infiltration of the left parotid gland. No acute soft tissue or osseous abnormalities. Partial opacification of the right sphenoidal sinus and several ethmoid air cells. Remaining of the paranasal sinuses are clear. The mastoids and middle ear cavities are clear. CT/CT head/brain wo IV con IMPRESSION: 1. No evidence of acute intracranial hemorrhage or edematous territorial infarction. 2. Chronic right superior cerebellar hemisphere infarct. 3. Chronic lacunar infarct adjacent to the left caudate ganglia. 4. Paranasal sinus disease.
[2023-02-05 13:52] VITALS: BP 148/70; PULSE 74; RESP 18; TEMP 35.9; O2SAT 100; BMI 26.7
--- NOTE | 2023-02-05 13:52 | ED_ITS ---
HPI - General Adult General Chief complaint: Eye Problems Stated complaint: r eye pressure redness Time Seen by Provider: 02/05/23 14:17 Related Data Home Medications Medication Instructions Recorded Confirmed hydroxyzine HCl 50 mg tablet mg PO 10/14/20 10/14/20 metoprolol succinate 50 mg 50 mg PO DAILY 10/14/20 10/14/20 tablet,extended release 24 hr nilotinib 150 mg capsule 300 mg PO BID 10/14/20 10/14/20 Previous Rx's Medication Instructions Recorded warfarin 5 mg tablet 5 mg PO DAILY #90 tabs 06/17/20 acetaminophen 300 mg-codeine 30 mg 1 tab PO Q8H PRN pain #10 tabs 04/25/21 tablet lidocaine HCl 4 % topical cream 1 appl topical BID PRN pain #120 04/25/21 (Aspercreme (lidocaine HCl)) grams ondansetron 4 mg disintegrating 4 mg PO Q6-8H PRN nausea and 08/02/21 tablet vomiting #14 tabs Allergies Allergy/AdvReac Type Severity Reaction Status Date / Time cephalexin [From KEFLEX] Allergy Severe ANGIOEDEMA Verified 02/05/23 13:56 Penicillins [PCN] Allergy Severe DIFF Verified 02/05/23 13:56 BREATHING pilocarpine [PILOCARPINE] Allergy Severe DIFFICULTY Verified 02/05/23 13:56 BREATHING prochlorperazine Allergy Severe DIFFICULTY Verified 02/05/23 13:56 [From COMPAZINE] BREATHING PMFSH Past Medical History Medical History delivery delivered H/O Sjogren's disease Leukemia Myocardial infarct Stroke Surgical History History of heart surgery Social History Social History Alcohol intake: never Patient Tobacco Use Status: Former Tobacco user Substance Use Type: Heroin Advance Directives: No Physical Exam ED Vital Signs: Vital Signs - 24 hr 02/05/23 13:52 Temperature 96.6 F L Pulse Rate 74 Respiratory Rate 18 Blood Pressure 148/70 H Pulse Oximetry 100 Oxygen Delivery Method Room Air BMI result Body Mass Index 26.7 Course Course Course Narrative: RME performed by Phuong Alfaro PA-C. Patient is a 53 year old assigned female at presenting to the emergency department with right sided eye pain. Labs ordered. Patient placed back in the waiting room pending room availability and results. Medications Administered Discontinued Medications Generic Name Dose Route Start Last Admin Trade Name Jimmy PRN Reason Stop Dose Admin Tetracaine HCl 1 drop 02/05/23 14:47 02/05/23 15:09 Tetracaine Hcl/Pf 0.5% Oph [place] 4 Ml Drops EYE-BOTH 02/05/23 14:48 1 drop ONCE ONE Administration Medical Decision Making Lab Data [facility] Lab Attestation statement: I reviewed the patient's lab results. 02/05/23 14:04 02/05/23 14:04 Labs: Lab Results 02/05/23 02/05/23 02/05/23 Range/Units 14:04 14:04 14:04 WBC 6.9 (4.8-10.8) X10*3/uL RBC 4.76 (4.20-5.50) X10*6/uL Hgb 13.1 (12.0-16.0) g/dl Hct 40.8 (37.0-47.0) % MCV 85.7 (80.0-98.0) fL MCH 27.5 (27.0-33.0) pg MCHC 32.1 (31.0-35.0) g/dl RDW 14.9 (11.0-16.0) % Plt Count 242 (160-400) X10*3/uL MPV 9.8 (9.4-12.3) fL Immature Gran % (Auto) 0.3 (0.0-0.4) % Neut % (Auto) 57.6 (45-73) % Lymph % (Auto) 28.6 (20-40) % [place] % (Auto) 7.7 (2-11) % Eos % (Auto) 5.5 H (0-4) % Baso % (Auto) 0.3 (0-2) % Lymph # (Auto) 2.0 (1.2-4.9) X10*3/uL [place] # (Auto) 0.5 (0.1-1.2) X10*3/uL Eos # (Auto) 0.4 (0.0-0.4) X10*3/uL Baso # (Auto) 0.0 (0.0-0.2) X10*3/uL Abs Immat Gran (auto) 0.02 (0.00-0.03) X10*3/uL Absolute Neuts (auto) 4.0 (2.0-8.3) x10*3/uL Absolute Nucleated RBC 0.000 (0.0-0.012) X10*3/uL Nucleated RBC % (auto) 0.0 (0.0-0.2) /100WBC PT 17.8 H (10.0-13.1) SEC INR 1.5 H (0.9-1.1) APTT 41.6 H D (26.0-36.4) SEC Sodium 141 (135-145) mmol/L Potassium 4.0 (3.3-5.1) mmol/L Chloride 108 (96-108) mmol/L Carbon Dioxide 28 (22-29) mmol/L Anion Gap 9 L (12-20) BUN 12 (9-16) mg/dL Creatinine 0.82 (0.5-1.4) mg/dL Estim Creat Clear Calc 72.0 Estimated GFR > 60 Random Glucose 86 (60-115) mg/dL Calcium 10.0 D (8.4-10.2) mg/dL Magnesium 2.2 (1.6-2.6) mg/dL Total Bilirubin 0.7 (0.0-1.0) mg/dL AST 19 (5-31) U/L ALT 12 (0-31) U/L Alkaline Phosphatase 110 (39-117) U/L Total Protein 7.7 (6.5-8.0) g/dL Albumin 4.4 (3.5-5.0) g/dL Radiology Impression Discussion of test interpretation with radiology: I have reviewed the radiologist's reading. Radiologist Impression: ?CT/CT head/brain wo IV con IMPRESSION: 1.? No evidence of acute intracranial hemorrhage or edematous territorial infarction. 2.? Chronic right superior cerebellar hemisphere infarct. 3.? Chronic lacunar infarct adjacent to the left caudate ganglia. 4.? Paranasal sinus disease. Discharge Plan Discharge Clinical Impression: Subconjunctival hemorrhage Patient Disposition: Home, Self-Care Instructions: Subconjunctival Hemorrhage (ED) Additional Instructions: The bleeding your eye appears to be a subconjunctival hemorrhage. This is benign. Will resolve on its own over time. It is recommended that he get a CT scan of your head for your other symptoms however you are refusing. Recommend following up with primary care doctor as soon as possible. If you develop new or worsening symptoms call 911 or come back to the ER for further evaluation. Your INR was also found to be sub-therapetutics. Increase your dose to 12.5 over the weekend and have your INR checked on Wednesday. Follow-up with for your eye symptoms. Prescriptions: No Action warfarin 5 mg tablet 5 mg PO DAILY Qty: 90 0RF Protocol: Dose Management Condition: Wednesday (Week One) Dose/Route: 10 mg Instruction: 2 x 5 mg tablets Condition: Wednesday Dose/Route: 10 mg Instruction: 2 x 5 mg tablets Condition: Wednesday Dose/Route: 10 mg Instruction: 2 x 5 mg tablets Condition: Wednesday Dose/Route: 10 mg Instruction: 2 x 5 mg tablets Condition: Dose/Route: 10 mg Instruction: 2 x 5 mg tablets Condition: Wednesday Dose/Route: 10 mg Instruction: 2 x 5 mg tablets Condition: Wednesday Dose/Route: 10 mg Instruction: 2 x 5 mg tablets Condition: Wednesday (Week Two) Dose/Route: 10 mg Instruction: 2 x 5 mg tablets Condition: Wednesday Dose/Route: 10 mg Instruction: 2 x 5 mg tablets Condition: Wednesday Dose/Route: 10 mg Instruction: 2 x 5 mg tablets Condition: Wednesday Dose/Route: 10 mg Instruction: 2 x 5 mg tablets Condition: Dose/Route: 10 mg Instruction: 2 x 5 mg tablets Condition: Wednesday Dose/Route: 10 mg Instruction: 2 x 5 mg tablets Condition: Wednesday Dose/Route: 10 mg Instruction: 2 x 5 mg tablets Protocol Text: Adjustment Start Date: Wednesday10/14/20 INR Value: 3.3 INR Date: 10/14/20 Recheck Date: 10/28/20 lidocaine HCl [Aspercreme (lidocaine HCl)] 4 % cream 1 appl topical BID PRN (Reason: pain) Qty: 120 0RF acetaminophen-codeine 300-30 mg tablet 1 tab PO Q8H PRN (Reason: pain) Qty: 10 0RF ondansetron 4 mg tablet,disintegrating 4 mg PO Q6-8H PRN (Reason: nausea and vomiting) Qty: 14 0RF Tasigna 150 mg capsule 300 mg PO BID hydroxyzine HCl 50 mg tablet PO metoprolol succinate 50 mg tablet extended release 24 hr 50 mg PO DAILY Referrals: Calvin Garcia [Physician] - (Right sub-conjunctival hemorrhage, Right eye pain) Interventions: ED Discharge Assessment Last Done: 02/05/23 18:04 Discharge Date/Time: 02/05/23 18:04
[2023-02-05 14:09] LABS: MANUAL DIFF FLAG NO
[2023-02-05 14:23] LABS: Basophils Percent Auto 0.3 % (0-2); Eosinophils Absolute Auto 0.4 X10*3/uL (0.0-0.4); Eosinophils Percent Auto 5.5 % (0-4); Hematocrit 40.8 % (37.0-47.0); Hemoglobin 13.1 g/dl (12.0-16.0); Imm Gran Abs Auto 0.02 X10*3/uL (0.00-0.03); Imm Gran Pct Auto 0.3 % (0.0-0.4); Lymphocytes Percent Auto 28.6 % (20-40); Mean Corpuscular HGB Conc 32.1 g/dl (31.0-35.0); Mean Corpuscular Hemoglobin 27.5 pg (27.0-33.0); Mean Corpuscular Volume 85.7 fL (80.0-98.0); Mean Platelet Volume 9.8 fL (9.4-12.3); Monocytes Absolute Auto 0.5 X10*3/uL (0.1-1.2); Monocytes Percent Auto 7.7 % (2-11); Neutrophils Percent Auto 57.6 % (45-73); Platelet Count 242 X10*3/uL (160-400); Red Blood Count 4.76 X10*6/uL (4.20-5.50); Red Cell Distribution Width 14.9 % (11.0-16.0); White Blood Count 6.9 X10*3/uL (4.8-10.8)
[2023-02-05 14:27] LABS: INTERNATIONAL NORM RATIO 1.5 (0.9-1.1); Prothrombin Time 17.8 SEC (10.0-13.1)
[2023-02-05 14:30] LABS: Alanine Aminotransferase 12 U/L (0-31); Albumin Level 4.4 g/dL (3.5-5.0); Alkaline Phosphatase 110 U/L (39-117); Anion Gap 9 (12-20); Aspartate Amino Transferase 19 U/L (5-31); Bilirubin Total 0.7 mg/dL (0.0-1.0); Blood Urea Nitrogen 12 mg/dL (9-16); Carbon Dioxide 28 mmol/L (22-29); Chloride 108 mmol/L (96-108); Estimated Glomerular Filt Rate > 60; Glucose Random 86 mg/dL (60-115); Magnesium 2.2 mg/dL (1.6-2.6); Partial Thromboplastin Time 41.6 SEC (26.0-36.4); Sodium 141 mmol/L (135-145); Total Protein 7.7 g/dL (6.5-8.0)
--- NOTE | 2023-02-05 15:05 | ED_ITS ---
HPI - Eye Problem General Chief complaint: Eye Problems Stated complaint: r eye pressure redness Time Seen by Provider: 02/05/23 14:17 Source: patient Mode of arrival: ambulatory Limitations: no limitations History of Present Illness HPI Narrative: 53 yo female with a pmh of leukemia (currently on Tasigna oral chemo), stroke, SC, Sjogren's disease, mechanical mitral valve (on comuadin) here for two days of painful, bloody left eye, blurred vision with black spots only in the right eye, and headache only on the right side along with generalized weakness. She does not remember any trauma occurring to the eye. She believes her eye is getting worse, and she rates her headache a 7/10 pain that feels like throbbing pressure. She felt like she was going to pass out coming in today. She otherwise denies chest pain, fever, sob, and abdominal pain. MD chief complaint: eye pain, eye redness and vision change Onset (ago): day(s) (2) Onset description: unknown Duration: constant and progressively worsening Location: right eye Eye Symptoms: redness and blurry vision Mechanism: none Severity scale (1-10): 7 If Pain, Quality: throbbing Associated symptoms: headache and weakness Treatments Prior to Arrival: none Related Data Home Medications Medication Instructions Recorded Confirmed hydroxyzine HCl 50 mg tablet mg PO 10/14/20 10/14/20 metoprolol succinate 50 mg 50 mg PO DAILY 10/14/20 10/14/20 tablet,extended release 24 hr nilotinib 150 mg capsule 300 mg PO BID 10/14/20 10/14/20 Previous Rx's Medication Instructions Recorded warfarin 5 mg tablet 5 mg PO DAILY #90 tabs 06/17/20 acetaminophen 300 mg-codeine 30 mg 1 tab PO Q8H PRN pain #10 tabs 04/25/21 tablet lidocaine HCl 4 % topical cream 1 appl topical BID PRN pain #120 04/25/21 (Aspercreme (lidocaine HCl)) grams ondansetron 4 mg disintegrating 4 mg PO Q6-8H PRN nausea and 08/02/21 tablet vomiting #14 tabs Allergies Allergy/AdvReac Type Severity Reaction Status Date / Time cephalexin [From KEFLEX] Allergy Severe ANGIOEDEMA Verified 02/05/23 13:56 Penicillins [PCN] Allergy Severe DIFF Verified 02/05/23 13:56 BREATHING pilocarpine [PILOCARPINE] Allergy Severe DIFFICULTY Verified 02/05/23 13:56 BREATHING prochlorperazine Allergy Severe DIFFICULTY Verified 02/05/23 13:56 [From COMPAZINE] BREATHING Review of Systems Review of Systems: Yes all other systems are reviewed and are negative [facility] Past Medical History Medical History delivery delivered H/O Sjogren's disease Leukemia Myocardial infarct Stroke Surgical History History of heart surgery Social History Social History Alcohol intake: never Patient Tobacco Use Status: Former Tobacco user Substance Use Type: Heroin Advance Directives: No Physical Exam Vital Signs: Vital Signs: Last Vital Signs Temp 96.6 F L 02/05/23 13:52 Pulse 74 02/05/23 13:52 Resp 18 02/05/23 13:52 BP 148/70 H 02/05/23 13:52 Pulse Ox 100 02/05/23 13:52 O2 Del Method Room Air 02/05/23 13:52 BMI result Body Mass Index 26.7 Appearance: Alert. Oriented X3. No acute distress. Head: normocephalic, atraumatic. Eyes: Right subconjunctival hemorrhage noted. Pupils equal, round and reactive to light. EOMI. ENT: Pharynx normal. No tonsillar swelling or exudate. Neck: Normal inspection. Neck supple. CVS: Normal heart rate and rhythm. Pulses normal. Respiratory: No respiratory distress. Breath sounds normal. Abdomen: Soft and nontender. Skin: Skin warm and dry. Normal skin color. Normal skin turgor. No rashes. Extremities: No lower extremity edema. No joint swelling. Neuro/psych: Oriented X 3. 4/5 strength biceps/triceps on right arm, 5/5 biceps/triceps strength on left arm. Equal lower extremity strength. States her sensation to touch feels different on her right side from her face down to her elbow CN II-XII intact. Normal speech and cognition. Medications Administered Discontinued Medications Generic Name Dose Route Start Last Admin Trade Name Freq PRN Reason Stop Dose Admin Tetracaine HCl 1 drop 02/05/23 14:47 02/05/23 15:09 Tetracaine Hcl/Pf 0.5% Oph [place] 4 Ml Drops EYE-BOTH 02/05/23 14:48 1 drop ONCE ONE Administration Medical Decision Making Medical Decision Making [facility] Narrative: Patient's symptoms are most consistent with a subconjunctival hemorrage. she initially reported blurred vision and dark spots however her vision is 20/20. She later denied any vision changes. CT scan of the head is unremarkable. Labs unremarkable. Eye pressures are normal. She was encouraged follow-up with Dr. Garcia. At this time she is stable for discharge home. Return precautions were discussed. Her INR was subtherapeutic at 1.5 today. Goal of 2.5-3.5 given her valve history. She was instructed to increase her Coumadin to 12.5 mg for the next 2 days, her next INR draw is Wednesday. 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 Stable for discharge home. Differential Diagnosis Differential Diagnoses: The differential diagnosis associated with the presentation includes Conjunctiva hemorrhage, eye trauma, corneal abrasion, glaucoma, optic nerve injury, less likely stroke Lab Data [facility] Lab Attestation statement: I reviewed the patient's lab results. 02/05/23 14:04 02/05/23 14:04 Labs: Lab Results 02/05/23 02/05/23 02/05/23 Range/Units 14:04 14:04 14:04 WBC 6.9 (4.8-10.8) X10*3/uL RBC 4.76 (4.20-5.50) X10*6/uL Hgb 13.1 (12.0-16.0) g/dl Hct 40.8 (37.0-47.0) % MCV 85.7 (80.0-98.0) fL MCH 27.5 (27.0-33.0) pg MCHC 32.1 (31.0-35.0) g/dl RDW 14.9 (11.0-16.0) % Plt Count 242 (160-400) X10*3/uL MPV 9.8 (9.4-12.3) fL Immature Gran % (Auto) 0.3 (0.0-0.4) % Neut % (Auto) 57.6 (45-73) % Lymph % (Auto) 28.6 (20-40) % [place] % (Auto) 7.7 (2-11) % Eos % (Auto) 5.5 H (0-4) % Baso % (Auto) 0.3 (0-2) % Lymph # (Auto) 2.0 (1.2-4.9) X10*3/uL [place] # (Auto) 0.5 (0.1-1.2) X10*3/uL Eos # (Auto) 0.4 (0.0-0.4) X10*3/uL Baso # (Auto) 0.0 (0.0-0.2) X10*3/uL Abs Immat Gran (auto) 0.02 (0.00-0.03) X10*3/uL Absolute Neuts (auto) 4.0 (2.0-8.3) x10*3/uL Absolute Nucleated RBC 0.000 (0.0-0.012) X10*3/uL Nucleated RBC % (auto) 0.0 (0.0-0.2) /100WBC PT 17.8 H (10.0-13.1) SEC INR 1.5 H (0.9-1.1) APTT 41.6 H D (26.0-36.4) SEC Sodium 141 (135-145) mmol/L Potassium 4.0 (3.3-5.1) mmol/L Chloride 108 (96-108) mmol/L Carbon Dioxide 28 (22-29) mmol/L Anion Gap 9 L (12-20) BUN 12 (9-16) mg/dL Creatinine 0.82 (0.5-1.4) mg/dL Estim Creat Clear Calc 72.0 Estimated GFR > 60 Random Glucose 86 (60-115) mg/dL Calcium 10.0 D (8.4-10.2) mg/dL Magnesium 2.2 (1.6-2.6) mg/dL Total Bilirubin 0.7 (0.0-1.0) mg/dL AST 19 (5-31) U/L ALT 12 (0-31) U/L Alkaline Phosphatase 110 (39-117) U/L Total Protein 7.7 (6.5-8.0) g/dL Albumin 4.4 (3.5-5.0) g/dL Independent Interpretation I performed an independent interpretation of an: CT Scan Interpretation: CT without edema or bleed, agree w/ radiologist read. Radiology Impression Discussion of test interpretation with radiology: I have reviewed the radiologist's reading. Radiologist Impression: ?CT/CT head/brain wo IV con IMPRESSION: 1.? No evidence of acute intracranial hemorrhage or edematous territorial infarction. 2.? Chronic right superior cerebellar hemisphere infarct. 3.? Chronic lacunar infarct adjacent to the left caudate ganglia. 4.? Paranasal sinus disease. External Record Review External record reviewed: Office record, Outpatient record, Prior outpatient labs and Prior outpatient radiology Prescription Management I considered prescription management with: Antibiotic Chronic Conditions Patient?s care impacted by: Other (stroke) Critical Care Time Critical Care Time Critical Care Time: No Discharge Plan Discharge Clinical Impression: Subconjunctival hemorrhage Patient Disposition: Home, Self-Care Instructions: Subconjunctival Hemorrhage (ED) Additional Instructions: The bleeding your eye appears to be a subconjunctival hemorrhage. This is benign. Will resolve on its own over time. It is recommended that he get a CT scan of your head for your other symptoms however you are refusing. Recommend following up with primary care doctor as soon as possible. If you develop new or worsening symptoms call 911 or come back to the ER for further evaluation. Your INR was also found to be sub-therapetutics. Increase your dose to 12.5 over the weekend and have your INR checked on Wednesday. Follow-up with for your eye symptoms. Prescriptions: No Action warfarin 5 mg tablet 5 mg PO DAILY Qty: 90 0RF Protocol: Dose Management Condition: Wednesday (Week One) Dose/Route: 10 mg Instruction: 2 x 5 mg tablets Condition: Wednesday Dose/Route: 10 mg Instruction: 2 x 5 mg tablets Condition: Wednesday Dose/Route: 10 mg Instruction: 2 x 5 mg tablets Condition: Wednesday Dose/Route: 10 mg Instruction: 2 x 5 mg tablets Condition: Dose/Route: 10 mg Instruction: 2 x 5 mg tablets Condition: Wednesday Dose/Route: 10 mg Instruction: 2 x 5 mg tablets Condition: Wednesday Dose/Route: 10 mg Instruction: 2 x 5 mg tablets Condition: Wednesday (Week Two) Dose/Route: 10 mg Instruction: 2 x 5 mg tablets Condition: Wednesday Dose/Route: 10 mg Instruction: 2 x 5 mg tablets Condition: Wednesday Dose/Route: 10 mg Instruction: 2 x 5 mg tablets Condition: Wednesday Dose/Route: 10 mg Instruction: 2 x 5 mg tablets Condition: Dose/Route: 10 mg Instruction: 2 x 5 mg tablets Condition: Wednesday Dose/Route: 10 mg Instruction: 2 x 5 mg tablets Condition: Wednesday Dose/Route: 10 mg Instruction: 2 x 5 mg tablets Protocol Text: Adjustment Start Date: Wednesday10/14/20 INR Value: 3.3 INR Date: 10/14/20 Recheck Date: 10/28/20 lidocaine HCl [Aspercreme (lidocaine HCl)] 4 % cream 1 appl topical BID PRN (Reason: pain) Qty: 120 0RF acetaminophen-codeine 300-30 mg tablet 1 tab PO Q8H PRN (Reason: pain) Qty: 10 0RF ondansetron 4 mg tablet,disintegrating 4 mg PO Q6-8H PRN (Reason: nausea and vomiting) Qty: 14 0RF Tasigna 150 mg capsule 300 mg PO BID hydroxyzine HCl 50 mg tablet PO metoprolol succinate 50 mg tablet extended release 24 hr 50 mg PO DAILY Referrals: Calvin Garcia [Physician] - (Right sub-conjunctival hemorrhage, Right eye pain) Interventions: ED Discharge Assessment Last Done: 02/05/23 18:04 Discharge Date/Time: 02/05/23 18:04
[2023-02-05] MEDS: Tetracaine HCl/PF 0.5% Oph Sol 4 ML DROPS 1 DROP EYE-BOTH (15:09)
== END 2023-02-05 18:04 | disposition home or self-care (01) ==
PROVIDERS: Physician Assistant Medical; Emergency Provider Emergency Medicine
DX: H11.32 Conjunctival hemorrhage, left eye (principal); H57.11 Ocular pain, right eye; M35.00 Sjogren syndrome, unspecified; C95.90 Leukemia, unspecified not having achieved remission; Z95.2 Presence of prosthetic heart valve; Z86.73 Personal history of transient ischemic attack (TIA), and cerebral infarction without residual deficits; Z79.01 Long term (current) use of anticoagulants
CPT/HCPCS: 36415; 70450; 80053; 83735; 85025; 85610; 85730; 99282; 99284

== ENCOUNTER 2023-02-09 11:57 | Inpatient (IN) | payer OTHER, SELFPAY ==
--- NOTE | ~2023-02-09 | CT_ITS ---
EXAMINATION: CT ANGIOGRAM NECK WITH CONTRAST CT ANGIOGRAM BRAIN WITH CONTRAST CLINICAL INFORMATION: Weakness. COMPARISON: Head CT performed earlier the same day. TECHNIQUE: Test bolus sequences followed by intravenous administration 70 mL of Omnipaque 350. Helical imaging was performed in the axial plane from the thoracic inlet to the skull vertex. Delayed postcontrast imaging of the head was also performed. The data was processed at the senior nuclear medicine technologist workstation for generation of MIP sequences. Angled MIPs and volume rendered reformatted images were also generated at an offline 3D workstation under concurrent supervision. Stenoses are assessed in accordance with NASCET criteria unless otherwise indicated. This CT examination was performed using dose optimization techniques as appropriate, variously including the following: *Automated exposure control *Adjustment of mA and/or kV according to patient size (this includes techniques or standardized protocols for targeted exams where dose is matched to indication/reason for exam; i.e. extremities or head) *Use of iterative reconstruction technique FINDINGS: BRAIN: There is a small indeterminate age infarct involving the left thalamus and posterior limb of the left internal capsule that could be more definitively assessed with MRI if indicated. No hemorrhage. Chronic infarcts within the left caudate and the right cerebellum again noted. [There is no intracranial hemorrhage, hydrocephalus, extra-axial surface collection, midline shift, or other herniation pattern. The basilar cisterns are preserved. No significant soft tissue abnormality. No acute osseous abnormality. There is a retention cyst within the right sphenoid sinus, there is moderate mucosal thickening within the ethmoid air cells bilaterally, and there is mild mucosal thickening within the maxillary sinuses bilaterally. CERVICAL SOFT TISSUES AND LUNG APICES: Median sternotomy wires in place. Mild cervical spondylosis. Fatty replacement of the left parotid gland. NECK CTA: [There is a classic 3 vessel configuration of the aortic arch. Proximal arch vessels are non-stenotic. The vertebral arteries are codominant. No significant ostial stenosis is visualized on either side. Both vertebral arteries are widely patent throughout their extracranial cervical course. Both common carotid arteries are normal in course and caliber.] Atherosclerotic calcification involving the carotid bifurcations bilaterally without significant stenosis involving the proximal internal carotid arteries. BRAIN CTA: [There is normal opacification of major intracranial arteries. No focal flow-limiting stenosis nor discrete proximal large artery occlusion. No aneurysm. Timing of the contrast bolus allows assessment of the major dural venous sinuses, which all opacify normally] CT/CT angio head neck stroke IMPRESSION: - There is a small indeterminate age infarct involving the left thalamus and posterior limb of the left internal capsule that could be more definitively assessed with MRI if indicated. No hemorrhage. Chronic infarcts within the left caudate and the right cerebellum again noted. - No significant arterial stenoses and no acute arterial occlusions within the head or neck. Findings discussed with Dr. Romero at 12:58 PM on 02/09/2023.
--- NOTE | ~2023-02-09 | MR_ITS ---
EXAMINATION: MR BRAIN WITHOUT CONTRAST CLINICAL INFORMATION: Stroke evaluation. Reported right-sided headaches on head CT from 02/05/2023. COMPARISON: CT imaging from 02/09/2023. TECHNIQUE: Multiplanar, multisequence imaging of the brain was performed without contrast. FINDINGS: No diffusion abnormalities are identified to suggest an acute infarct. The ventricles are normal in size. No mass effect or midline shift is seen. No extra-axial fluid collections are seen. The brainstem is normal. Small chronic infarcts are visible in the left caudate head, left thalamus, right parietal lobe, and in the cerebellar hemispheres. Scattered very mild white matter signal changes are stable. The gradient refocused acquisition is normal. The craniovertebral junction, marrow signal, and midline structures are normal. The major intracranial flow voids at the level of the [place] are preserved. The dural venous sinus flow voids are maintained. The mastoid air cells are well aerated. Chronic fatty atrophic changes are again visible in the left parotid gland. There is a small fluid level in the dependent right sphenoid sinus with mucosal thickening. [id number] ethmoid sinus mucosal thickening also again noted. MR/MR head/brain wo con IMPRESSION: No acute intracranial process. Stable scattered small chronic infarcts in very mild chronic white matter signal changes.
--- NOTE | ~2023-02-09 | CT_ITS ---
EXAMINATION: CT HEAD WITHOUT CONTRAST (STROKE PROTOCOL) CLINICAL INFORMATION: Stroke protocol. COMPARISON: None available. TECHNIQUE: Contiguous axial imaging was performed from the skull base to vertex without intravenous administration of contrast. This CT examination was performed using dose optimization techniques as appropriate, variously including the following: *Automated exposure control *Adjustment of mA and/or kV according to patient size (this includes techniques or standardized protocols for targeted exams where dose is matched to indication/reason for exam; i.e. extremities or head) *Use of iterative reconstruction technique DLP: 548 mGy-cm FINDINGS: There is no evidence of an extra-axial collection. There is no evidence of intra or extra-axial hemorrhage. The ventricles and extra-axial CSF spaces are appropriate. [place]-white matter differentiation is normal. Old right superior cerebellar infarct appears unchanged. There may be an old left caudate lobe basal ganglia lacunar infarct that is unchanged. No mass, mass effect or acute infarct. Review at bone windows is normal. No skull fracture. Mild inflammatory changes in the ethmoid and sphenoid sinuses. CT/CT head for stroke IMPRESSION: No acute findings. Old right cerebellar and left basal ganglia infarcts similar to recent exam. This critical result was discussed with Dr. Romero at 1221 hours on 02/09/2023. It was ascertained that the content and urgency of the report was understood at the time of direct communication.
[2023-02-09 12:00] VITALS: BP 143/70; BP 164/70; PULSE 73; PULSE 82; RESP 12; TEMP 36.1; O2SAT 100; BMI 28.8
--- NOTE | 2023-02-09 12:03 | ECG_ITS ---
Test Reason : stroke Blood Pressure : / mmHG Vent. Rate : 076 BPM Atrial Rate : 076 BPM P-R Int : 136 ms QRS Dur : 074 ms QT Int : 386 ms P-R-T Axes : 000 052 013 degrees QTc Int : 434 ms Normal sinus rhythm Nonspecific T wave abnormality Abnormal ECG When compared with ECG of 22-NOV-2022 14:10, No significant change was found Referred By: Jose De Jesus Romero Electronically Signed By:BRIAN HARRINGTON MD
--- NOTE | 2023-02-09 12:03 | ED_ITS ---
HPI - Weakness General Chief complaint: Stroke Stated complaint: stroke alert, L droop/weakness, per ems Time Seen by Provider: 02/09/23 12:03 Source: patient and EMS Mode of arrival: EMS Limitations: no limitations History of Present Illness HPI Narrative: EMS presented with patient stated she is having difficulty speaking and numbness and cant move her arms and her legs. Patient walked to a nearby store to ask them to call 911. Patient presents talking slowly and very softly Complaint: generalized weakness Onset (ago): minute(s) Duration: constant Location: generalized Severity: mild Related Data Home Medications Medication Instructions Recorded Confirmed hydroxyzine HCl 50 mg tablet mg PO 10/14/20 10/14/20 metoprolol succinate 50 mg 50 mg PO DAILY 10/14/20 10/14/20 tablet,extended release 24 hr nilotinib 150 mg capsule 300 mg PO BID 10/14/20 10/14/20 Previous Rx's Medication Instructions Recorded warfarin 5 mg tablet 5 mg PO DAILY #90 tabs 06/17/20 acetaminophen 300 mg-codeine 30 mg 1 tab PO Q8H PRN pain #10 tabs 04/25/21 tablet lidocaine HCl 4 % topical cream 1 appl topical BID PRN pain #120 04/25/21 (Aspercreme (lidocaine HCl)) grams ondansetron 4 mg disintegrating 4 mg PO Q6-8H PRN nausea and 08/02/21 tablet vomiting #14 tabs Allergies Allergy/AdvReac Type Severity Reaction Status Date / Time cephalexin [From KEFLEX] Allergy Severe ANGIOEDEMA Verified 02/05/23 13:56 Penicillins [PCN] Allergy Severe DIFF Verified 02/05/23 13:56 BREATHING pilocarpine [PILOCARPINE] Allergy Severe DIFFICULTY Verified 02/05/23 13:56 BREATHING prochlorperazine Allergy Severe DIFFICULTY Verified 02/05/23 13:56 [From COMPAZINE] BREATHING Review of Systems Review of Systems: Yes Unobtainable due to mental status (patient appeared anxious and only able to talk very softly) Neurologic: Denies Sensory deficit (Neuro) [facility], [facility] Past Medical History Medical History delivery delivered H/O Sjogren's disease Leukemia Myocardial infarct Stroke Surgical History History of heart surgery Social History Social History Alcohol intake: never Patient Tobacco Use Status: Former Tobacco user Smoked in Last 30 Days: No Use of substances other than those prescribed or required for medical reasons: No Substance Use Type: Heroin Advance Directives: No Advance Directives Information Provided: No Patient : No Physical Exam Vital Signs: Vital Signs: Last Vital Signs Temp 97.8 F 02/09/23 14:26 Pulse 70 02/09/23 14:26 Resp 14 02/09/23 14:26 BP 122/51 L 02/09/23 14:26 Pulse Ox 99 02/09/23 14:26 O2 Del Method Room Air 02/09/23 14:26 BMI result Body Mass Index 28.8 Const: Other: patient talking softly but appearing anxious Nutritional Appearance: average body habitus Orientation/consciousness: oriented to person Limitations: no limitations HEENT: Head: Yes normal to inspection Ears: external ears normal General nose exam: Normal external nose present Mouth: Normal oral and palatal mucosa present and oropharynx normal Throat: Yes posterior oropharynx normal Eyes: General: appearance normal, both eyes and all related structures Neck: Other: supple Neck: Yes normal visual inspection Chest: Chest palpation & inspection: normal inspection of the chest Resp: Auscultation: clear to auscultation bilaterally Cardio: Jugular venous distension: no JVD Rate: regular rate Rhythm: regular rhythm Heart sounds: S1 normal heart sound present and S2 normal heart sound present GI: Inspection: Yes normal to inspection Palpation (GI): Soft to palpation, nontender and No hepatosplenomegaly present Auscultation: normal bowel sounds : General: Yes no CVA tenderness Back/Spine/Pelvis: Back: no CVA tenderness Skin: General skin exam: no rashes or lesions noted Neuro: Other: patient states she is unable to resource engineer her arms and legs secondary to effort, says she can't General: oriented to person Cranial nerves: Yes CN's II-XII intact bilaterally Sensory Exam: No Sensory deficit (Neuro) Extrem: General: Yes normal to inspection Psych: Appearance: grossly normal Course Reevaluation(s) Reevaluation #1: CT head and CTA negative for stroke or LVO. Patient now resolved completely including speech and all extremities, discussed with Lisha automotive parts coordinator and patient on maximum therapy doubt stroke. However, troponin unexpectedly elevated will check repeat troponin Time: 16:32 Reevaluation #2: I spent 40 minutes of critical care, with interventions, assessments, speaking to patient, consultants, and family. Time: 16:33 Reevaluation #3: physician observation: patient with unexpected elevation of troponin, awaiting repeat troponin Time: 16:37 Medications Administered Discontinued Medications Generic Name Dose Route Start Last Admin Trade Name Freq PRN Reason Stop Dose Admin Iohexol 70 ml 02/09/23 12:38 02/09/23 12:38 Iohexol 350 Mg/Ml 100 Ml Infus..Btl IV 02/09/23 12:39 70 ml ONCE ONE Administration Medical Decision Making Differential Diagnosis Differential Diagnoses: The differential diagnosis associated with the presentation includes (stroke, anxiety, elevated troponin) Admission/Observation Consideration of admission/observation: Escalation of care including admission/observation considered (In this 53 yo female with valvular heart disease, [place] on coumadin now with potential neurologic event was considered immediately for stroke) Consult Healthcare Provider Management of the patient was discussed with: Senior Fire Protection Engineer (automotive parts coordinator) Lab Data MDM Lab Attestation statement: I reviewed the patient's lab results. 02/09/23 13:28 02/09/23 13:28 Labs: Lab Results 02/09/23 02/09/23 02/09/23 Range/Units 12:01 12:02 13:28 WBC 6.1 (4.8-10.8) X10*3/uL RBC 4.54 (4.20-5.50) X10*6/uL Hgb 12.5 (12.0-16.0) g/dl Hct 38.6 (37.0-47.0) % MCV 85.0 (80.0-98.0) fL MCH 27.5 (27.0-33.0) pg MCHC 32.4 (31.0-35.0) g/dl RDW 15.1 (11.0-16.0) % Plt Count 207 (160-400) X10*3/uL MPV 9.7 (9.4-12.3) fL Immature Gran % (Auto) 0.3 (0.0-0.4) % Neut % (Auto) 67.1 (45-73) % Lymph % (Auto) 21.4 (20-40) % [place] % (Auto) 7.1 (2-11) % Eos % (Auto) 3.9 (0-4) % Baso % (Auto) 0.2 (0-2) % Lymph # (Auto) 1.3 (1.2-4.9) X10*3/uL [place] # (Auto) 0.4 (0.1-1.2) X10*3/uL Eos # (Auto) 0.2 (0.0-0.4) X10*3/uL Baso # (Auto) 0.0 (0.0-0.2) X10*3/uL Abs Immat Gran (auto) 0.02 (0.00-0.03) X10*3/uL Absolute Neuts (auto) 4.1 (2.0-8.3) x10*3/uL Absolute Nucleated RBC 0.000 (0.0-0.012) X10*3/uL Nucleated RBC % (auto) 0.0 (0.0-0.2) /100WBC PT (10.0-13.1) SEC Whole Blood PT 32.9 H (11.1-13.5) sec INR (0.9-1.1) Whole Blood INR 2.7 H (0.9-1.1) APTT (26.0-36.4) SEC Sodium (135-145) mmol/L Potassium (3.3-5.1) mmol/L Chloride (96-108) mmol/L Carbon Dioxide (22-29) mmol/L Anion Gap (12-20) BUN (9-16) mg/dL Creatinine (0.5-1.4) mg/dL Estim Creat Clear Calc Estimated GFR POC Glucose 121 H (60-115) mg/dL Random Glucose (60-115) mg/dL Calcium (8.4-10.2) mg/dL Total Creatine Kinase (26-140) U/L Troponin I High Sens (<3.5-17.0) ng/L 02/09/23 02/09/23 02/09/23 Range/Units 13:28 13:28 13:28 WBC (4.8-10.8) X10*3/uL RBC (4.20-5.50) X10*6/uL Hgb (12.0-16.0) g/dl Hct (37.0-47.0) % MCV (80.0-98.0) fL MCH (27.0-33.0) pg MCHC (31.0-35.0) g/dl RDW (11.0-16.0) % Plt Count (160-400) X10*3/uL MPV (9.4-12.3) fL Immature Gran % (Auto) (0.0-0.4) % Neut % (Auto) (45-73) % Lymph % (Auto) (20-40) % [place] % (Auto) (2-11) % Eos % (Auto) (0-4) % Baso % (Auto) (0-2) % Lymph # (Auto) (1.2-4.9) X10*3/uL [place] # (Auto) (0.1-1.2) X10*3/uL Eos # (Auto) (0.0-0.4) X10*3/uL Baso # (Auto) (0.0-0.2) X10*3/uL Abs Immat Gran (auto) (0.00-0.03) X10*3/uL Absolute Neuts (auto) (2.0-8.3) x10*3/uL Absolute Nucleated RBC (0.0-0.012) X10*3/uL Nucleated RBC % (auto) (0.0-0.2) /100WBC PT 30.5 H (10.0-13.1) SEC Whole Blood PT (11.1-13.5) sec INR 2.6 H (0.9-1.1) Whole Blood INR (0.9-1.1) APTT 53.1 H D (26.0-36.4) SEC Sodium 139 (135-145) mmol/L Potassium 3.9 (3.3-5.1) mmol/L Chloride 105 (96-108) mmol/L Carbon Dioxide 28 (22-29) mmol/L Anion Gap 10 L (12-20) BUN 10 (9-16) mg/dL Creatinine 0.94 (0.5-1.4) mg/dL Estim Creat Clear Calc 65.0 Estimated GFR > 60 POC Glucose (60-115) mg/dL Random Glucose 92 (60-115) mg/dL Calcium 9.0 D (8.4-10.2) mg/dL Total Creatine Kinase 104 (26-140) U/L Troponin I High Sens 431.5 H* D (<3.5-17.0) ng/L Independent Interpretation I performed an independent interpretation of an: EKG (sinus [address] or twave changes) and CT Scan (no bleed) Radiology Impression Discussion of test interpretation with radiology: I discussed test interpretation with the radiologist (called for no acute infarct on head CT) Independent Historian Clinical information obtained from an independent historian. History obtained from or confirmed by: EMS External Record Review External record reviewed: Outpatient record Chronic Conditions Patient?s care impacted by: Hypertension and Other (heart disease) Discharge Plan Discharge Clinical Impression: Elevated troponin, Weakness Patient Disposition: Still a Patient Prescriptions: No Action warfarin 5 mg tablet 5 mg PO DAILY Qty: 90 0RF Protocol: Dose Management Condition: Wednesday (Week One) Dose/Route: 10 mg Instruction: 2 x 5 mg tablets Condition: Wednesday Dose/Route: 10 mg Instruction: 2 x 5 mg tablets Condition: Wednesday Dose/Route: 10 mg Instruction: 2 x 5 mg tablets Condition: Wednesday Dose/Route: 10 mg Instruction: 2 x 5 mg tablets Condition: Dose/Route: 10 mg Instruction: 2 x 5 mg tablets Condition: Wednesday Dose/Route: 10 mg Instruction: 2 x 5 mg tablets Condition: Wednesday Dose/Route: 10 mg Instruction: 2 x 5 mg tablets Condition: Wednesday (Week Two) Dose/Route: 10 mg Instruction: 2 x 5 mg tablets Condition: Wednesday Dose/Route: 10 mg Instruction: 2 x 5 mg tablets Condition: Wednesday Dose/Route: 10 mg Instruction: 2 x 5 mg tablets Condition: Wednesday Dose/Route: 10 mg Instruction: 2 x 5 mg tablets Condition: Dose/Route: 10 mg Instruction: 2 x 5 mg tablets Condition: Wednesday Dose/Route: 10 mg Instruction: 2 x 5 mg tablets Condition: Wednesday Dose/Route: 10 mg Instruction: 2 x 5 mg tablets Protocol Text: Adjustment Start Date: Wednesday10/14/20 INR Value: 3.3 INR Date: 10/14/20 Recheck Date: 10/28/20 lidocaine HCl [Aspercreme (lidocaine HCl)] 4 % cream 1 appl topical BID PRN (Reason: pain) Qty: 120 0RF acetaminophen-codeine 300-30 mg tablet 1 tab PO Q8H PRN (Reason: pain) Qty: 10 0RF ondansetron 4 mg tablet,disintegrating 4 mg PO Q6-8H PRN (Reason: nausea and vomiting) Qty: 14 0RF Tasigna 150 mg capsule 300 mg PO BID hydroxyzine HCl 50 mg tablet PO metoprolol succinate 50 mg tablet extended release 24 hr 50 mg PO DAILY
[2023-02-09 12:06] LABS: Prothrombin Time Whole Bld POC 32.9 sec (11.1-13.5); ~PT, ~INR - Anti Coag Clinic 2.7 (0.9-1.1)
[2023-02-09 12:08] LABS: Glucose, Whole Blood 121 mg/dL (60-115)
[2023-02-09] MEDS: iohexoL 350 MG/ML 100 ML INFUS..BTL 70 ML IV (12:38)
--- NOTE | 2023-02-09 12:53 | PC.NURSE ---
pt a/o x 4 no sob/natali noted speaks in full sentences. pt c/o lightheadedness and feeling off. pt states that her speech is not garbled anymore and the numbness to her l side has resolved. md aware. pt aware of plan of care.
[2023-02-09 13:32] LABS: MANUAL DIFF FLAG NO
[2023-02-09 13:34] LABS: Basophils Percent Auto 0.2 % (0-2); Eosinophils Absolute Auto 0.2 X10*3/uL (0.0-0.4); Eosinophils Percent Auto 3.9 % (0-4); Hematocrit 38.6 % (37.0-47.0); Hemoglobin 12.5 g/dl (12.0-16.0); Imm Gran Abs Auto 0.02 X10*3/uL (0.00-0.03); Imm Gran Pct Auto 0.3 % (0.0-0.4); Lymphocytes Absolute Auto 1.3 X10*3/uL (1.2-4.9); Lymphocytes Percent Auto 21.4 % (20-40); Mean Corpuscular HGB Conc 32.4 g/dl (31.0-35.0); Mean Corpuscular Hemoglobin 27.5 pg (27.0-33.0); Mean Platelet Volume 9.7 fL (9.4-12.3); Monocytes Absolute Auto 0.4 X10*3/uL (0.1-1.2); Monocytes Percent Auto 7.1 % (2-11); Neutrophils Absolute Auto 4.1 x10*3/uL (2.0-8.3); Neutrophils Percent Auto 67.1 % (45-73); Platelet Count 207 X10*3/uL (160-400); Red Blood Count 4.54 X10*6/uL (4.20-5.50); Red Cell Distribution Width 15.1 % (11.0-16.0); White Blood Count 6.1 X10*3/uL (4.8-10.8)
[2023-02-09 13:41] LABS: INTERNATIONAL NORM RATIO 2.6 (0.9-1.1); Prothrombin Time 30.5 SEC (10.0-13.1)
[2023-02-09 13:43] LABS: Partial Thromboplastin Time 53.1 SEC (26.0-36.4)
[2023-02-09 13:44] LABS: Stroke Lab Use COMPLETE
[2023-02-09 13:51] LABS: Anion Gap 10 (12-20); Blood Urea Nitrogen 10 mg/dL (9-16); Carbon Dioxide 28 mmol/L (22-29); Chloride 105 mmol/L (96-108); Estimated Glomerular Filt Rate > 60; Glucose Random 92 mg/dL (60-115); Potassium 3.9 mmol/L (3.3-5.1); Sodium 139 mmol/L (135-145)
[2023-02-09 14:13] LABS: Troponin-I High Sensitivity 431.5 ng/L (<3.5-17.0)
[2023-02-09 14:26] VITALS: BP 122/51; PULSE 70; RESP 14; TEMP 36.6; O2SAT 99
[2023-02-09 18:28] LABS: Appearance Urine Clear; Color Urine Yellow; Glucose Urine UA Negative (Negative); Leukocyte Esterase Urine Trace (Negative); Nitrite Urine Negative (Negative); PH 7.5 (5.0-9.0); Specific Gravity - Urine 1.025 (1.005-1.025); UMIC TRIGGER UACC YES; Urine Blood Negative (Negative); Urine Ketones Negative (Negative); Urine Protein Negative (Neg-Trace)
[2023-02-09 18:33] LABS: Troponin-I High Sensitivity 428.6 ng/L (<3.5-17.0)
[2023-02-09 18:37] LABS: Amphetamine Screen Urine Not Detected (Not Detect); Barbiturates, Urine Not Detected (Not Detect); Benzodiazepines Screen Urine Not Detected (Not Detect); Cannabinoid Screen Urine Not Detected (Not Detect); Cocaine Screen Urine Not Detected (Not Detect); Fentanyl, urine Not Detected (Not Detect); Opiate Screen Urine Not Detected (Not Detect); Phencyclidine Screen Urine Not Detected (Not Detect)
[2023-02-09 19:02] LABS: D Dimer High Sensitivity < 150 NG/ML
[2023-02-09 19:15] VITALS: BP 151/80; PULSE 74; RESP 13; TEMP 36.7; O2SAT 99
[2023-02-09 19:52] LABS: Bacteria Urine None Seen (None Seen); Hyaline Casts Urine 0-2 /LPF (0-2); RBC Urine 0-2 /HPF (0-2); Squamous Epithelial Cell Urine 0-2 /HPF (0-2); WBC Urine 0-5 /HPF (0-5)
[2023-02-09 19:55] LABS: C Reactive Protein 0.14 mg/dL (< or = 0.50)
--- NOTE | 2023-02-09 20:12 | P.HPHOSP_ITS ---
History of Present Illness Date of Service: 02/09/23 Attending physician on admission: Freddy Collier Chief Complaint: mumbled speech, paresthesias 53-year-old female with history of coronary artery disease with myocardial infarction, history of stroke anticoagulated with Coumadin, CML, history of Sjogren's disease presented to the ED earlier today for evaluation dysarthria and paresthesias/weakness of the left extremities. She states around 11:25, she developed confusion and on coordination of her extremities with difficulty walking and speaking. She states she opened the door knowing that she would need help but instead of calling 911 walked downstairs to ask for help from a neighbor. Shortly after, she developed sudden onset paresthesias and weakness of the left side of the face left upper extremity and left lower extremity. She describes dysarthria. The symptoms in the left upper and lower extremity have resolved but she still experiences some tingling/numbness in the left side of the face with left-sided facial droop and dysarthria. She reports compliance with her medications. She is also noted to have subconjunctival hemorrhage of the right eye. Denies any trauma. On arrival, vitals within normal limits though slightly hypertensive at 151/80 at its highest. There is no leukocytosis, anemia, platelet level normal. PTT 30.5, INR 2.7. D-dimer <150. Renal function normal, electrolyte levels normal. Glucose 121. Initial troponin 431.5, repeat 428.6. Urinalysis unremarkable. Urine tox screen negative. Head CT 8 negative for any acute intracranial abnormality but does show old right cerebellar and left basal ganglia infarct similar to recent exam. CTA head/neck shows small indeterminate age infarct involving the left thalamus and posterior limb of the left internal capsule, MRI recommended. No acute hemorrhage. There is also chronic infarcts as previously noted. No significant arterial stenosis or arterial occlusions within the head or neck. She denies any fevers, chills, domicile pain, nausea, vomiting, diarrhea, lightheadedness, shortness of breath, palpitations, or chest pain. Review of Systems Review of Systems: General: No fevers, malaise, unintentional weight loss HEENT: No blurred vision, diplopia. No sore throat, nasal congestion, rhinorrhea, sinus pain, ear pain Cardiovascular: No chest pain, palpitations, or leg edema Respiratory: No shortness of breath, wheezing, cough GI: No abdominal pain, nausea, vomiting, diarrhea, constipation, melena, hematochezia : No dysuria, hematuria, increased urinary frequency, decreased urinary output MSK: No myalgia, back pain Neuro: No headaches, +LUE and LLE weakness/paresthesias, +facial droop, +slurred speech Skin: No rashes or lesions [facility] Medical History delivery delivered H/O Sjogren's disease Leukemia Myocardial infarct Stroke Surgical History History of heart surgery Social History Alcohol intake: never Patient Tobacco Use Status: Former Tobacco user Smoked in Last 30 Days: No Use of substances other than those prescribed or required for medical reasons: No Substance Use Type: Heroin Advance Directives: No Advance Directives Information Provided: No Patient : No Meds Allergies Allergy/AdvReac Type Severity Reaction Status Date / Time cephalexin [From KEFLEX] Allergy Severe ANGIOEDEMA Verified 02/05/23 13:56 Penicillins [PCN] Allergy Severe DIFF Verified 02/05/23 13:56 BREATHING pilocarpine [PILOCARPINE] Allergy Severe DIFFICULTY Verified 02/05/23 13:56 BREATHING prochlorperazine Allergy Severe DIFFICULTY Verified 02/05/23 13:56 [From COMPAZINE] BREATHING Home Medications Medication Instructions Recorded Confirmed Last Taken Type metoprolol succinate 50 mg 50 mg PO DAILY 10/14/20 02/09/23 Unknown History tablet,extended release 24 hr nilotinib 150 mg capsule 300 mg PO BID 10/14/20 02/09/23 Unknown History polyvinyl alcohol 1.4 % eye drops 1 drp ophthalmic (eye) 5XD PRN Dry 02/09/23 02/09/23 Unknown History (Artificial Tears (polyvinyl Eyes alcohol)) warfarin 5 mg tablet 10 mg PO DAILY@1800 02/09/23 02/09/23 02/09/23 History Physical Exam Vital Signs and Narrative: Vital Signs: Last Vital Signs Temp 98.0 F 02/09/23 19:15 Pulse 74 02/09/23 19:15 Resp 13 02/09/23 19:15 BP 151/80 H 02/09/23 19:15 Pulse Ox 99 02/09/23 19:15 O2 Del Method Room Air 02/09/23 19:15 BMI result Body Mass Index 28.8 Constitutional - Awake and Alert, No apparent distress Eyes - PERRLA, EOMI. Subconjunctival hemorrhage right eye Cardiovascular - S1S2, RRR, No edema Respiratory - Normal lung expansion, Normal respiratory effort, No respiratory distress, CTA bilaterally Gastrointestinal - NT / ND; +BS; No rebound or guarding Extremities - no calf tenderness bilaterally, no swelling Skin - Warm/Dry Neurological - Alert & oriented x3, 5/5 strength BUE and BLE, sensation in extremities intact. Decreased sensation left side face with slight loss of left- sided nasal labial fold and facial droop with mild dysarthria noted. See photo. CN II-XII otherwise in tact. Finger to nose testing appropriate, no cerebellar ataxia Psychological - Appropriate affect Results Labs 02/09/23 13:28 02/09/23 13:28 Labs: Laboratory Results - last 24 hr 02/09/23 02/09/23 02/09/23 12:01 12:02 13:28 MCV 85.0 MCH 27.5 MCHC 32.4 RDW 15.1 Plt Count 207 MPV 9.7 Immature Gran % (Auto) 0.3 Neut % (Auto) 67.1 Lymph % (Auto) 21.4 [place] % (Auto) 7.1 Eos % (Auto) 3.9 Baso % (Auto) 0.2 Lymph # (Auto) 1.3 [place] # (Auto) 0.4 Eos # (Auto) 0.2 Baso # (Auto) 0.0 Abs Immat Gran (auto) 0.02 Absolute Neuts (auto) 4.1 Absolute Nucleated RBC 0.000 Nucleated RBC % (auto) 0.0 PT Whole Blood PT 32.9 H INR Whole Blood INR 2.7 H APTT D-Dimer High Sensitivty Anion Gap Estim Creat Clear Calc Estimated GFR POC Glucose 121 H Random Glucose Calcium Total Creatine Kinase Troponin I High Sens C-Reactive Protein Urine Color Urine Appearance Urine pH Ur Specific [place] Urine Protein Urine Glucose (UA) Urine Ketones Urine Blood Urine Nitrite Ur Leukocyte Esterase Urine RBC Urine WBC Ur Squamous Epith Cells Urine Bacteria Hyaline Casts Urine Opiates Screen Urine Fentanyl Screen Ur Barbiturates Screen Ur Phencyclidine Scrn Ur Amphetamines Screen U Benzodiazepines Scrn Urine Cocaine Screen U Marijuana (THC) Screen 02/09/23 02/09/23 02/09/23 13:28 13:28 13:28 MCV MCH MCHC RDW Plt Count MPV Immature Gran % (Auto) Neut % (Auto) Lymph % (Auto) [place] % (Auto) Eos % (Auto) Baso % (Auto) Lymph # (Auto) [place] # (Auto) Eos # (Auto) Baso # (Auto) Abs Immat Gran (auto) Absolute Neuts (auto) Absolute Nucleated RBC Nucleated RBC % (auto) PT 30.5 H Whole Blood PT INR 2.6 H Whole Blood INR APTT 53.1 H D D-Dimer High Sensitivty < 150 Anion Gap 10 L Estim Creat Clear Calc 65.0 Estimated GFR > 60 POC Glucose Random Glucose 92 Calcium 9.0 D Total Creatine Kinase 104 Troponin I High Sens 431.5 H* D C-Reactive Protein 0.14 Urine Color Urine Appearance Urine pH Ur Specific [place] Urine Protein Urine Glucose (UA) Urine Ketones Urine Blood Urine Nitrite Ur Leukocyte Esterase Urine RBC Urine WBC Ur Squamous Epith Cells Urine Bacteria Hyaline Casts Urine Opiates Screen Urine Fentanyl Screen Ur Barbiturates Screen Ur Phencyclidine Scrn Ur Amphetamines Screen U Benzodiazepines Scrn Urine Cocaine Screen U Marijuana (THC) Screen 02/09/23 02/09/23 02/09/23 17:53 18:15 18:15 MCV MCH MCHC RDW Plt Count MPV Immature Gran % (Auto) Neut % (Auto) Lymph % (Auto) [place] % (Auto) Eos % (Auto) Baso % (Auto) Lymph # (Auto) [place] # (Auto) Eos # (Auto) Baso # (Auto) Abs Immat Gran (auto) Absolute Neuts (auto) Absolute Nucleated RBC Nucleated RBC % (auto) PT Whole Blood PT INR Whole Blood INR APTT D-Dimer High Sensitivty Anion Gap Estim Creat Clear Calc Estimated GFR POC Glucose Random Glucose Calcium Total Creatine Kinase Troponin I High Sens 428.6 H* C-Reactive Protein Urine Color Yellow Urine Appearance Clear Urine pH 7.5 Ur Specific [place] 1.025 Urine Protein Negative Urine Glucose (UA) Negative Urine Ketones Negative Urine Blood Negative Urine Nitrite Negative Ur Leukocyte Esterase Trace H Urine RBC 0-2 Urine WBC 0-5 Ur Squamous Epith Cells 0-2 Urine Bacteria None Seen Hyaline Casts 0-2 Urine Opiates Screen Not Detected Urine Fentanyl Screen Not Detected Ur Barbiturates Screen Not Detected Ur Phencyclidine Scrn Not Detected Ur Amphetamines Screen Not Detected U Benzodiazepines Scrn Not Detected Urine Cocaine Screen Not Detected U Marijuana (THC) Screen Not Detected Imaging Radiologist's Impressions: Impressions Head CT 02/09/23 12:08 IMPRESSION: No acute findings. Old right cerebellar and left basal ganglia infarcts similar to recent exam. This critical result was discussed with Dr. Romero at 1221 hours on 02/09/2023. It was ascertained that the content and urgency of the report was understood at the time of direct communication. Head/Neck CTA 02/09/23 12:38 IMPRESSION: - There is a small indeterminate age infarct involving the left thalamus and posterior limb of the left internal capsule that could be more definitively assessed with MRI if indicated. No hemorrhage. Chronic infarcts within the left caudate and the right cerebellum again noted. - No significant arterial stenoses and no acute arterial occlusions within the head or neck. Findings discussed with Dr. Romero at 12:58 PM on 02/09/2023. Assessment and Plan (1) Stroke: Status: Acute (2) Elevated troponin: Status: Acute Plan 53-year-old female with history of coronary artery disease with myocardial infarction, history of stroke anticoagulated with Coumadin, CML, history of Sjogren's disease admitted for monitoring of troponin elevation and stroke #Acute CVA -CTA head/neck showing small indeterminate age infarct involving the left thal amus and posterior limb of the left internal capsule. No other acute abnormality. There is also chronic infarcts noted on CTA of the head/neck and head CT within the left caudate in the right cerebellum. -MRI brain ordered -lipid panel pending, initiate atorvastatin 40 mg daily, adjust as appropriate -ASA 81 mg daily. Continue Coumadin with INR noted to be therapeutic at 2.7 -echocardiogram -neurology consult -PT/OT/RETURNED GOODS RECEIVING CLERK eval #Elevated troponins -initial troponin 434, repeat 427 -EKG is nonischemic, patient is asymptomatic -? Related to CVA -echocardiogram -cardiology consult # CAD -initiate ASA and statin. Hold metoprolol in the setting of acute stroke -see above #CML -Continue nilotinib #H/o mechanical mitral valve replacement -continue Coumadin, INR therapeutic at 2.7 (goal 2.5-3.5) -follow INR DVT prophylaxis-on Coumadin Full code Patient requires inpatient stay at least 2 midnights for management of acute CVA requiring further investigation with MRI, echocardiogram, expert consultation, and evaluation by ancillary therapy providers. Time Spent With Patient Time: Total time managing care of this patient today ____ minutes. Quality Stroke Does the patient have a stroke diagnosis?: Yes Reason for No Anti-thrombotic by Day Two: Drug treatment not indicated VTE Prior VTE?: No VTE Risk Level:: Medical - moderate - high VTE Device Contraindication: Treatment Not Indicated VTE Drug Contraindication: N/A - Med Ordered
[2023-02-09] MEDS: Acetaminophen 325 MG TABLET 975 MG PO (20:13)
[2023-02-09 20:25] LABS: Erythrocyte Sedimentation Rate 5 MM/HR (0-20)
--- NOTE | 2023-02-09 20:49 | PHA.MEDREC ---
Addendum entered by Faina Carmona [facility] 02/10/23 22:13: PATIENT ENDORSED YESTERDAY SHE IS STILL ON TASIGNA 2 CAPS BID, BUT TODAY SHE IS TELLING THE NURSE SHE IS ON 1 CAP BID. I UPDATED THE MED REC AND CHANGED THE ORDER. WILL FOLLOWUP WITH SON FOR INFORMATION ON LABEL Original Note: Pharmacy Consult ? Medication Reconciliation Pharmacy has completed the medication reconciliation. Patient states that a week ago (she is unsure), her INR was low, so she was instructed to change her dose to 12.5 mg for 2 days and then resume 10mg dose. Patient was due to see the coumadin clinic today. Patient does not remember if she took all her meds, but does endorse taking the warfarin Esvin
[2023-02-09] MEDS: Aspirin Enteric Coated 81 MG TABLET.DR PO (20:59)
[2023-02-09 21:07] LABS: Cholesterol 218 mg/dL; HDL Cholesterol 43 mg/dL; LDL Cholesterol Calculated 144 mg/dl; Triglycerides 157 mg/dL
[2023-02-09 21:25] VITALS: BP 150/64; PULSE 70; RESP 14; TEMP 36.5; O2SAT 99
--- NOTE | 2023-02-09 21:28 | PC.NURSE ---
coumadin administration delayed due to med not being erified by pharmacy
[2023-02-09 21:29] LABS: INTERNATIONAL NORM RATIO 2.3 (0.9-1.1); Prothrombin Time 26.8 SEC (10.0-13.1)
--- NOTE | 2023-02-09 22:17 | PC.NURSE ---
Pt given a hospital bed and moved into room 3
[2023-02-10] MEDS: 0.9 % Sodium Chloride Flush 3 ML SYRINGE IVFLUSH ×4 (00:09→21:23)
--- NOTE | 2023-02-10 02:00 | PC.NURSE ---
Attempted to call report at [phone]
[2023-02-10 03:41] VITALS: BP 149/70; PULSE 68; RESP 20; TEMP 36.2; O2SAT 100
[2023-02-10 04:14] VITALS: BMI 26.8
[2023-02-10 06:49] LABS: MANUAL DIFF FLAG NO
--- NOTE | 2023-02-10 07:00 | CA_ITS ---
Transthoracic Echocardiogram Patient (Last, First, Middle): Johnson Keller M Gender: Female Date of : 1970 Age: 53 Procedure Date: 02/10/2023 Procedure Type: Transthoracic Echocardiogram Location: [facility] [place] Height: 160.02 cm Weight: 68.49 kg BSA: 1.72 m2 Heart Rate: 81 bpm BP: 149 / 70 mmHg Rag Grader: Referring MD: Mariela BOWERS Golf Course Manager: Matthieu Isidro MD Symptoms: elevated trops Study Quality: Adequate ECG Rhythm: Sinus Conclusions: - 1. Normal LV systolic function with LVEF of 60 65% 2. Mildly dilated left atrium 3. Normally functioning mechanical prostheses in mitral position with mean gradient of 3 mmHg 4. Normal RV systolic pressure 5. No gross pericardial effusion Findings Left Ventricle Normal left ventricular size, thickness, and systolic function. The visually estimated ejection fraction is between 60-65%. Spectral Doppler is indicative of a normal filling pattern. Right Ventricle Normal right ventricular cavity size. There is mildly decreased right ventricular systolic function. Atria The left atrium is mildly dilated. There is a mobile atrial septum noted. Interatrial shunt cannot be excluded. The right atrium is normal in size. Aortic Valve Normal aortic valve structure and function. There is no aortic valve stenosis. There is mild aortic valve regurgitation. Mitral Valve A mechanical prosthetic mitral valve is present. The prosthetic mitral valve appears to be functioning normally. There is no mitral valve regurgitation. the mechanical valve is well seated without any abnormal rocking motion. Pulmonic Valve The pulmonic valve is likely normal. There is trace pulmonic valve regurgitation. Tricuspid Valve Normal tricuspid valve structure. There is trace tricuspid valve regurgitation. The right ventricular systolic pressure is normal. The right ventricular systolic pressure is 20 mmHg. Normal right atrial pressure. There is no evidence of pulmonary hypertension. Great Vessels All visible segments of the aorta are normal in size. The pulmonary artery was not well visualized. Venous The inferior vena cava is normal in size and collapses greater than 50% with inspiration. Pericardium/Pleural There is no evidence of pericardial effusion. Measurements 2D Linear Measurements IVSd: 1.05 0.6-0.9/0.6-1.0 cm LVIDd: 3.71 3.9-5.3/4.2-5.9 cm LVIDd Index: 2.16 2.4-3.2/2.2-3.1 cm/m2 LVIDs: 2.45 2.0-3.6 cm LVPWd: 1.11 0.7-1.1 cm Ao Root: 3.00 2.1-3.5 cm LA Diam: 4.10 2.7-3.8/3.0-4.0 cm LAIDs Index: 2.38 1.5-2.3 cm/m2 LV Mass: 157.25 67-162/88-224 g LV Mass Index: 91.42 43-95/49-115 g/m2 LVOT Diam: 2.30 3.0+(-)1.3 cm Mitral Valve MV VTI: 0.34 MV Pk Zay: 1.16 MV Mn Zay: 0.73 MV Pk Grad: 5.00 MV Mn Grad: 3.00 MV Pk E: 1.07 MV PK A: 0.85 MV Decel Time: 171.00 E/A: 1.30 E'Lateral: 8.59 E'Medial: 6.96 E/E' Med: 15.40 E/E' Lat: 12.50 PHT: 50.00 MVA PHT: 4.40 MVA Continuity: 2.50 Decel [place]: 6.26 Aortic Valve AoV Pk Zay: 1.33 AoV Mn Zay: 0.80 AoV VTI: 0.25 AoV Pk Grad: 7.00 Aov Mn Grad: 3.00 APRYL Cont.VTI: 3.37 LVOT LVOT Pk Zay: 1.05 LVOT Mn Zay: 0.66 LVOT VTI: 0.20 LVOT Pk Grad: 4.00 LVOT Mn Grad: 2.00 LVOT Diam: 2.30 LVOT Area: 4.15 Diastolic Function MV Pk E: 1.07 MV Pk A: 0.85 E/A: 1.30 E'Medial: 6.96 E/E' Med: 15.40 E' Laterial: 8.59 E/E' Lat: 12.50 Right Ventricle TAPSE (mm): 15.70 TVS' Zay: 8.49 Tricuspid Valve TR Pk Zay: 2.05 TR Pk Grad: 17.00 RA Press: 3.00 RVSP: 20.00 Great Vessels Aorta Ao Root-2D: 3.00 2.0-3.7 cm Ao Asc: 3.10 2.1-3.4 cm Pulmonary Valve PV Pk Zay: 0.81 Peak PV Grad: 3.00 Updated in Other Vendor System with Status of Final Matthieu Isidro MD electronically signed on 02/10/2023 3:05:37 PM with status of Final
[2023-02-10 07:03] LABS: Basophils Percent Auto 0.2 % (0-2); Eosinophils Absolute Auto 0.3 X10*3/uL (0.0-0.4); Eosinophils Percent Auto 6.3 % (0-4); Hemoglobin 12.1 g/dl (12.0-16.0); Imm Gran Abs Auto 0.02 X10*3/uL (0.00-0.03); Imm Gran Pct Auto 0.4 % (0.0-0.4); Lymphocytes Absolute Auto 1.4 X10*3/uL (1.2-4.9); Lymphocytes Percent Auto 31.2 % (20-40); Mean Corpuscular HGB Conc 32.7 g/dl (31.0-35.0); Mean Corpuscular Hemoglobin 27.5 pg (27.0-33.0); Mean Corpuscular Volume 84.1 fL (80.0-98.0); Monocytes Absolute Auto 0.5 X10*3/uL (0.1-1.2); Monocytes Percent Auto 9.8 % (2-11); Neutrophils Absolute Auto 2.4 x10*3/uL (2.0-8.3); Neutrophils Percent Auto 52.1 % (45-73); Platelet Count 194 X10*3/uL (160-400); Red Cell Distribution Width 14.8 % (11.0-16.0); White Blood Count 4.6 X10*3/uL (4.8-10.8)
[2023-02-10 07:11] VITALS: BP 124/75; PULSE 62; RESP 20; TEMP 36.6; O2SAT 98
[2023-02-10 07:14] LABS: Anion Gap 11 (12-20); Blood Urea Nitrogen 9 mg/dL (9-16); Calcium 9.1 mg/dL (8.4-10.2); Carbon Dioxide 27 mmol/L (22-29); Chloride 109 mmol/L (96-108); Creatinine Clr Calc Pharmacy 72.9; Estimated Glomerular Filt Rate > 60; Glucose Random 86 mg/dL (60-115); Potassium 3.9 mmol/L (3.3-5.1); Sodium 143 mmol/L (135-145)
[2023-02-10 07:27] LABS: Estimated Average Glucose 82 mg/dL; Hemoglobin A1c % 4.5 %
[2023-02-10 07:40] LABS: INTERNATIONAL NORM RATIO 3.2 (0.9-1.1)
[2023-02-10] MEDS: Atorvastatin Calcium 40 MG TABLET PO (07:49)
[2023-02-10] MEDS: Aspirin Enteric Coated 81 MG TABLET.DR PO (07:49)
--- NOTE | 2023-02-10 08:56 | MHC.CM.PN ---
CM met with pt, she came from home, has her own transport. Pt states she would only be open to outpatient services following discharge. Pt then stated I don't need a case management social worker, I don't need help, I am perfectly capable of taking care of myself, and it is my right not to have case management . PT recommends outpatient services at this time upon discharge.
--- NOTE | 2023-02-10 10:42 | P.CONCA_ITS ---
History of Present Illness History of Present Illness Date of Service: 02/10/23 Requesting physician: Romulo Hooks Consult reason: troponin elevation Chief complaint: Stroke, Elevated troponins Narrative: I was consulted to see Johnson in cardiology consultation today for elevated troponin. She is a pleasant 53-year-old woman with prior history of [facility] Jamal mitral valve replacement, 29 mm done in [place] in 2002 for what she says a le aky mitral valve. Exact etiology of mitral regurgitation is unclear at this point time. However she has done well with this valve replacement. She has been on warfarin therapy although her INRs have been very labile and have been high and low. 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 At that time she does not recall her INR levels. Her she came yesterday to the emergency room because suddenly she started noticing incoordination very she felt that she had no balance and her arms and legs were moving in uncoordinated way and she was having issues with balance and everything to her seem like was moving in slow motion. Then she tried to get help and walked outside some high out to the laundry room in her apartment complex and found somebody and when she tried to talk to her was noted to have a mobile speech and by that time she also noticing numbness on the left side of her face and mainly the tongue. She therefore came to the emergency room. In the emergency room she had a troponin performed for unclear reason. She has no cardiac symptoms. She denies any chest pain or shortness of breath. Denies any palpitations. Her troponin is elevated but flat in the 400 range. Cardiology consult was called for the same. Meanwhile workup from neurologic perspective showed old infarcts in the left caudate and right cerebellar and possibly subacute infarct in the left internal capsule And left thalamus. she had presented to the ED last week with redness in the right eye and was diagnosed subconjunctival hemorrhage and at that time INR was 1.5. Her INR yesterday was 2.3 at the lowest. Her INR today's and therapeutic range. She did not receive warfarin. She is questioning that. Her EKG does not show any acute changes. Review of Systems 2 Constitutional: Constitutional: Reports weakness Eyes: Eyes: Reports no additional eye complaints Cardiovascular: Cardiovascular: Reports no additional cardiovascular complaints Respiratory: Respiratory: Reports no additional respiratory complaints Gastrointestinal: Gastrointestinal: Reports no additional gastrointestinal complaints Musculoskeletal: Musculoskeletal: Reports no additional musculoskeletal complaints Neurologic: Reports Neuro-related abnormal movements, Reports Abnormal speech present, Reports lack of coordination, Reports paresthesias ( Left face) and Reports weakness PMFSH Past Medical History Medical History delivery delivered H/O Sjogren's disease Leukemia Myocardial infarct Stroke Surgical History Surgical History History of heart surgery Social History Social History Household Members: Children Housing: Apartment Do you presently have visiting nurse or other home services: No Alcohol intake: never Patient Tobacco Use Status: Former Tobacco user Quit Date: 3 weeks ago Cigarettes Per Day: 2 Substance Use Type: Heroin Meds Allergies Allergy/AdvReac Type Severity Reaction Status Date / Time cephalexin [From KEFLEX] Allergy Severe ANGIOEDEMA Verified 02/05/23 13:56 Penicillins [PCN] Allergy Severe DIFF Verified 02/05/23 13:56 BREATHING pilocarpine [PILOCARPINE] Allergy Severe DIFFICULTY Verified 02/05/23 13:56 BREATHING prochlorperazine Allergy Severe DIFFICULTY Verified 02/05/23 13:56 [From COMPAZINE] BREATHING Active Medications: Current Medications Acetaminophen (Acetaminophen 325 Mg Tablet) 650 mg PO Q6H PRN PRN Reason: Pain, Mild (Pain Scale 1-3) Artificial Tears (Artificial Tears 15 Ml Drops) 1 drop EYE-BOTH 5XD PRN PRN Reason: Dry Eyes Aspirin (Aspirin Enteric Coated 81 Mg Tablet.) 81 mg PO DAILY [facility] Last Admin: 02/10/23 07:49 Dose: 81 mg Atorvastatin Calcium (Atorvastatin Calcium 40 Mg Tablet) 40 mg PO DAILY [facility] Last Admin: 02/10/23 07:49 Dose: 40 mg Docusate Sodium (Docusate Sodium 100 Mg Capsule) 100 mg PO DAILY PRN PRN Reason: Constipation Melatonin (Melatonin 3 Mg Tablet) 6 mg PO BEDTIME PRN PRN Reason: Insomnia Non-Formulary Medication (Nilotinib) 300 mg PO BID [facility] Ondansetron HCl (Ondansetron Hcl 4 Mg/2 Ml Vial) 4 mg IVPUSH Q8H PRN PRN Reason: Nausea and Vomiting Pharmacy Consult (Consult Rx Perform Med Rec) 1 each MISCELLANE ONCE PRN PRN Reason: Consult order Sodium Chloride (0.9 % Sodium Chloride Flush 3 Ml Syringe) 3 ml IVFLUSH QSHIFT [facility] Last Admin: 02/10/23 07:49 Dose: 3 ml Warfarin Sodium (Warfarin Sodium 10 Mg Tablet) 10 mg PO DAILY@1800 [facility] Home Medications Medication Instructions Recorded Confirmed Last Taken Type metoprolol succinate 50 mg 50 mg PO DAILY 10/14/20 02/09/23 Unknown History tablet,extended release 24 hr nilotinib 150 mg capsule 300 mg PO BID 10/14/20 02/09/23 Unknown History polyvinyl alcohol 1.4 % eye drops 1 drp ophthalmic (eye) 5XD PRN Dry 02/09/23 02/09/23 Unknown History (Artificial Tears (polyvinyl Eyes alcohol)) warfarin 5 mg tablet 10 mg PO DAILY@1800 02/09/23 02/09/23 02/09/23 History Physical Exam Vital Signs: Vital Signs: Last Vital Signs Temp 98 F 02/10/23 07:11 Pulse 62 02/10/23 07:11 Resp 20 02/10/23 07:11 BP 124/75 02/10/23 07:11 Pulse Ox 98 02/10/23 07:11 O2 Del Method Room Air 02/10/23 07:11 BMI result Body Mass Index 26.8 Const: General: cooperative, comfortable, no acute distress, well developed, alert and awake Nutritional Appearance: average body habitus Orientation/consciousness: patient oriented x3 Limitations: no limitations HEENT: Head: Yes normocephalic and Yes atraumatic Neck: Neck: Yes trachea midline, Yes supple and Yes no JVD Chest: Chest palpation & inspection: other ( well-healed sternotomy scar) Resp: Effort & Inspection: normal respiratory effort Auscultation: clear to auscultation bilaterally Cardio: Jugular venous distension: no JVD Palpation: normal PMI Rate: regular rate Rhythm: regular rhythm Heart sounds: S2 normal heart sound present, Clicking heart sound present ( crisp opening and closing click of [facility] Jamal mitral valve), no gallops, no murmurs and no rubs Peripheral pulses: Peripheral pulses 2+ throughout GI: Auscultation: normal bowel sounds Skin: General skin exam: no rashes or lesions noted Neuro: General: patient oriented x3 and no focal motor deficits Speech: Abnormal speech present Extrem: General: Yes no clubbing, cyanosis or edema Psych: Appearance: grossly normal Objective Labs and Meds 02/10/23 06:43 02/10/23 06:43 Lab results: Laboratory Results - last 24 hr 02/09/23 02/09/23 02/09/23 12:01 12:02 13:28 WBC 6.1 RBC 4.54 Hgb 12.5 Hct 38.6 MCV 85.0 MCH 27.5 MCHC 32.4 RDW 15.1 Plt Count 207 MPV 9.7 Immature Gran % (Auto) 0.3 Neut % (Auto) 67.1 Lymph % (Auto) 21.4 [place] % (Auto) 7.1 Eos % (Auto) 3.9 Baso % (Auto) 0.2 Lymph # (Auto) 1.3 [place] # (Auto) 0.4 Eos # (Auto) 0.2 Baso # (Auto) 0.0 Abs Immat Gran (auto) 0.02 Absolute Neuts (auto) 4.1 Absolute Nucleated RBC 0.000 Nucleated RBC % (auto) 0.0 ESR PT Whole Blood PT 32.9 H INR Whole Blood INR 2.7 H APTT D-Dimer High Sensitivty Sodium Potassium Chloride Carbon Dioxide Anion Gap BUN Creatinine Estim Creat Clear Calc Estimated GFR POC Glucose 121 H Random Glucose Estimat Average Glucose Hemoglobin A1c % Calcium Total Creatine Kinase Troponin I High Sens C-Reactive Protein Triglycerides Cholesterol LDL Cholesterol, Calc HDL Cholesterol Urine Color Urine Appearance Urine pH Ur Specific [place] Urine Protein Urine Glucose (UA) Urine Ketones Urine Blood Urine Nitrite Ur Leukocyte Esterase Urine RBC Urine WBC Ur Squamous Epith Cells Urine Bacteria Hyaline Casts Urine Opiates Screen Urine Fentanyl Screen Ur Barbiturates Screen Ur Phencyclidine Scrn Ur Amphetamines Screen U Benzodiazepines Scrn Urine Cocaine Screen U Marijuana (THC) Screen 02/09/23 02/09/23 02/09/23 13:28 13:28 13:28 WBC RBC Hgb Hct MCV MCH MCHC RDW Plt Count MPV Immature Gran % (Auto) Neut % (Auto) Lymph % (Auto) [place] % (Auto) Eos % (Auto) Baso % (Auto) Lymph # (Auto) [place] # (Auto) Eos # (Auto) Baso # (Auto) Abs Immat Gran (auto) Absolute Neuts (auto) Absolute Nucleated RBC Nucleated RBC % (auto) ESR PT 30.5 H Whole Blood PT INR 2.6 H Whole Blood INR APTT 53.1 H D D-Dimer High Sensitivty < 150 Sodium 139 Potassium 3.9 Chloride 105 Carbon Dioxide 28 Anion Gap 10 L BUN 10 Creatinine 0.94 Estim Creat Clear Calc 65.0 Estimated GFR > 60 POC Glucose Random Glucose 92 Estimat Average Glucose Hemoglobin A1c % Calcium 9.0 D Total Creatine Kinase 104 Troponin I High Sens 431.5 H* D C-Reactive Protein 0.14 Triglycerides 157 Cholesterol 218 LDL Cholesterol, Calc 144 HDL Cholesterol 43 Urine Color Urine Appearance Urine pH Ur Specific [place] Urine Protein Urine Glucose (UA) Urine Ketones Urine Blood Urine Nitrite Ur Leukocyte Esterase Urine RBC Urine WBC Ur Squamous Epith Cells Urine Bacteria Hyaline Casts Urine Opiates Screen Urine Fentanyl Screen Ur Barbiturates Screen Ur Phencyclidine Scrn Ur Amphetamines Screen U Benzodiazepines Scrn Urine Cocaine Screen U Marijuana (THC) Screen 02/09/23 02/09/23 02/09/23 13:28 17:53 18:15 WBC RBC Hgb Hct MCV MCH MCHC RDW Plt Count MPV Immature Gran % (Auto) Neut % (Auto) Lymph % (Auto) [place] % (Auto) Eos % (Auto) Baso % (Auto) Lymph # (Auto) [place] # (Auto) Eos # (Auto) Baso # (Auto) Abs Immat Gran (auto) Absolute Neuts (auto) Absolute Nucleated RBC Nucleated RBC % (auto) ESR 5 PT Whole Blood PT INR Whole Blood INR APTT D-Dimer High Sensitivty Sodium Potassium Chloride Carbon Dioxide Anion Gap BUN Creatinine Estim Creat Clear Calc Estimated GFR POC Glucose Random Glucose Estimat Average Glucose Hemoglobin A1c % Calcium Total Creatine Kinase Troponin I High Sens 428.6 H* C-Reactive Protein Triglycerides Cholesterol LDL Cholesterol, Calc HDL Cholesterol Urine Color Yellow Urine Appearance Clear Urine pH 7.5 Ur Specific [place] 1.025 Urine Protein Negative Urine Glucose (UA) Negative Urine Ketones Negative Urine Blood Negative Urine Nitrite Negative Ur Leukocyte Esterase Trace H Urine RBC 0-2 Urine WBC 0-5 Ur Squamous Epith Cells 0-2 Urine Bacteria None Seen Hyaline Casts 0-2 Urine Opiates Screen Urine Fentanyl Screen Ur Barbiturates Screen Ur Phencyclidine Scrn Ur Amphetamines Screen U Benzodiazepines Scrn Urine Cocaine Screen U Marijuana (THC) Screen 02/09/23 02/09/23 02/09/23 18:15 21:09 21:15 WBC RBC Hgb Hct MCV MCH MCHC RDW Plt Count MPV Immature Gran % (Auto) Neut % (Auto) Lymph % (Auto) [place] % (Auto) Eos % (Auto) Baso % (Auto) Lymph # (Auto) [place] # (Auto) Eos # (Auto) Baso # (Auto) Abs Immat Gran (auto) Absolute Neuts (auto) Absolute Nucleated RBC Nucleated RBC % (auto) ESR PT 26.8 H Whole Blood PT INR 2.3 H Whole Blood INR APTT D-Dimer High Sensitivty Sodium Potassium Chloride Carbon Dioxide Anion Gap BUN Creatinine Estim Creat Clear Calc Estimated GFR POC Glucose Random Glucose Estimat Average Glucose 82 Hemoglobin A1c % 4.5 Calcium Total Creatine Kinase Troponin I High Sens C-Reactive Protein Triglycerides Cholesterol LDL Cholesterol, Calc HDL Cholesterol Urine Color Urine Appearance Urine pH Ur Specific [place] Urine Protein Urine Glucose (UA) Urine Ketones Urine Blood Urine Nitrite Ur Leukocyte Esterase Urine RBC Urine WBC Ur Squamous Epith Cells Urine Bacteria Hyaline Casts Urine Opiates Screen Not Detected Urine Fentanyl Screen Not Detected Ur Barbiturates Screen Not Detected Ur Phencyclidine Scrn Not Detected Ur Amphetamines Screen Not Detected U Benzodiazepines Scrn Not Detected Urine Cocaine Screen Not Detected U Marijuana (THC) Screen Not Detected 02/10/23 02/10/23 02/10/23 06:43 06:43 07:21 WBC 4.6 L RBC 4.40 Hgb 12.1 Hct 37.0 MCV 84.1 MCH 27.5 MCHC 32.7 RDW 14.8 Plt Count 194 MPV 10.0 Immature Gran % (Auto) 0.4 Neut % (Auto) 52.1 Lymph % (Auto) 31.2 [place] % (Auto) 9.8 Eos % (Auto) 6.3 H Baso % (Auto) 0.2 Lymph # (Auto) 1.4 [place] # (Auto) 0.5 Eos # (Auto) 0.3 Baso # (Auto) 0.0 Abs Immat Gran (auto) 0.02 Absolute Neuts (auto) 2.4 Absolute Nucleated RBC 0.000 Nucleated RBC % (auto) 0.0 ESR PT 38.0 H Whole Blood PT INR 3.2 H Whole Blood INR APTT D-Dimer High Sensitivty Sodium 143 Potassium 3.9 Chloride 109 H Carbon Dioxide 27 Anion Gap 11 L BUN 9 Creatinine 0.81 Estim Creat Clear Calc 72.9 Estimated GFR > 60 POC Glucose Random Glucose 86 Estimat Average Glucose Hemoglobin A1c % Calcium 9.1 Total Creatine Kinase Troponin I High Sens C-Reactive Protein Triglycerides Cholesterol LDL Cholesterol, Calc HDL Cholesterol Urine Color Urine Appearance Urine pH Ur Specific [place] Urine Protein Urine Glucose (UA) Urine Ketones Urine Blood Urine Nitrite Ur Leukocyte Esterase Urine RBC Urine WBC Ur Squamous Epith Cells Urine Bacteria Hyaline Casts Urine Opiates Screen Urine Fentanyl Screen Ur Barbiturates Screen Ur Phencyclidine Scrn Ur Amphetamines Screen U Benzodiazepines Scrn Urine Cocaine Screen U Marijuana (THC) Screen Imaging Radiologist's impression: Impressions Head CT 02/09/23 12:08 IMPRESSION: No acute findings. Old right cerebellar and left basal ganglia infarcts similar to recent exam. This critical result was discussed with Dr. Romero at 1221 hours on 02/09/2023. It was ascertained that the content and urgency of the report was understood at the time of direct communication. Head/Neck CTA 02/09/23 12:38 IMPRESSION: - There is a small indeterminate age infarct involving the left thalamus and posterior limb of the left internal capsule that could be more definitively assessed with MRI if indicated. No hemorrhage. Chronic infarcts within the left caudate and the right cerebellum again noted. - No significant arterial stenoses and no acute arterial occlusions within the head or neck. Findings discussed with Dr. Romero at 12:58 PM on 02/09/2023. Assessment and Plan (1) Elevated troponin: Status: Acute elevated but flat troponin this middle-aged woman after neurologic event could be related to stroke due to myocardial stress. Could also be secondary to takotsubo cardiomyopathy. A small embolic event to myocardium can not be entirely ruled out. Although there is no clear rise and fall in troponins. Will obtain an echocardiogram to assess for LV systolic and diastolic function to evaluate for wall motion abnormality consistent with stress-induced cardiomyopathy. Management would be continued oral anticoagulation as well as aspirin therapy. (2) Stroke: Status: Acute More concerning are her neurologic symptoms. It seems like clinically her mechanical mitral valve seems to be function well. Echocardiogram is been requested. However this appears to be secondary to subtherapeutic INR last week and also again on presentation yesterday. Discussed with her importance of monitoring her INRs closely and maintaining at about 2.5 at all times. If she is less than 2.5 would consider giving her Lovenox for therapeutic anticoagulation. Continue low-dose aspirin therapy. SBE prophylaxis as per ACC / aha guidelines. Will follow if need be. Thank you for allowing me to partake in her care Time Spent With Patient Time: Total time managing care of this patient today ____ minutes. Procedures Date of Service Date of Service: 02/10/23
[2023-02-10 11:11] VITALS: BP 114/59; PULSE 76; RESP 20; TEMP 36.2; O2SAT 97
[2023-02-10] MEDS: Enoxaparin Sodium 120 MG/0.8 ML SYRINGE 105 MG SUBCUT (12:57)
[2023-02-10] MEDS: Artificial Tears 15 ML DROPS 2 DROP EYE-BOTH (12:57)
--- NOTE | 2023-02-10 14:47 | HO.PM.IMPN ---
Subjective Subjective Date of Service: 02/10/23 Interval History: dysarthria resolved but has L facial droop Review of Systems Review of Systems: Yes all other systems are reviewed and are negative Physical Exam Vital Signs: Vital Signs: Last Vital Signs Temp 97.1 F 02/10/23 11:11 Pulse 76 02/10/23 11:11 Resp 20 02/10/23 11:11 BP 114/59 L 02/10/23 11:11 Pulse Ox 97 02/10/23 11:11 O2 Del Method Room Air 02/10/23 11:11 BMI result Body Mass Index 26.8 Gen: in no acute distress HEENT: sclera anicteric, moist mucus membranes Neck: supple Lungs: clear to auscultation bilaterally Heart: regular rate and rhythm, no murmurs Abd: soft, non-tender, non-distended Ext: no edema Skin: warm/well-perfused Neuro: alert and oriented x3, mild L facial droop, no pronator drift, no dysmetria Psych: appropriate affect Objective Data Active Medications Acetaminophen (Acetaminophen 325 Mg Tablet) 650 mg PO Q6H PRN PRN Reason: Pain, Mild (Pain Scale 1-3) Artificial Tears (Artificial Tears 15 Ml Drops) 1 drop EYE-BOTH 5XD PRN PRN Reason: Dry Eyes Artificial Tears (Artificial Tears 15 Ml Drops) 2 drop EYE-BOTH Q4H PRN PRN Reason: dry eye Last Admin: 02/10/23 12:57 Dose: 2 drop Documented By: JON Aspirin (Aspirin Enteric Coated 81 Mg Tablet.) 81 mg PO DAILY [facility] Last Admin: 02/10/23 07:49 Dose: 81 mg Documented By: JON Atorvastatin Calcium (Atorvastatin Calcium 40 Mg Tablet) 40 mg PO DAILY [facility] Last Admin: 02/10/23 07:49 Dose: 40 mg Documented By: JON Docusate Sodium (Docusate Sodium 100 Mg Capsule) 100 mg PO DAILY PRN PRN Reason: Constipation Melatonin (Melatonin 3 Mg Tablet) 6 mg PO BEDTIME PRN PRN Reason: Insomnia Non-Formulary Medication (Nilotinib) 300 mg PO BID [facility] Ondansetron HCl (Ondansetron Hcl 4 Mg/2 Ml Vial) 4 mg IVPUSH Q8H PRN PRN Reason: Nausea and Vomiting Pharmacy Consult (Consult Rx Perform Med Rec) 1 each MISCELLANE ONCE PRN PRN Reason: Consult order Sodium Chloride (0.9 % Sodium Chloride Flush 3 Ml Syringe) 3 ml IVFLUSH QSHIFT [facility] Last Admin: 02/10/23 07:49 Dose: 3 ml Documented By: JON Warfarin Sodium (Warfarin Sodium 10 Mg Tablet) 10 mg PO DAILY@1800 [facility] Labs 02/10/23 06:43 02/10/23 06:43 Labs: Laboratory Results - last 24 hr 02/09/23 02/09/23 02/09/23 13:28 13:28 13:28 MCV MCH MCHC RDW Plt Count MPV Immature Gran % (Auto) Neut % (Auto) Lymph % (Auto) [place] % (Auto) Eos % (Auto) Baso % (Auto) Lymph # (Auto) [place] # (Auto) Eos # (Auto) Baso # (Auto) Abs Immat Gran (auto) Absolute Neuts (auto) Absolute Nucleated RBC Nucleated RBC % (auto) ESR 5 PT INR D-Dimer High Sensitivty < 150 Anion Gap Estim Creat Clear Calc Estimated GFR Random Glucose Estimat Average Glucose Hemoglobin A1c % Calcium Troponin I High Sens C-Reactive Protein 0.14 Triglycerides 157 Cholesterol 218 LDL Cholesterol, Calc 144 HDL Cholesterol 43 Urine Color Urine Appearance Urine pH Ur Specific [place] Urine Protein Urine Glucose (UA) Urine Ketones Urine Blood Urine Nitrite Ur Leukocyte Esterase Urine RBC Urine WBC Ur Squamous Epith Cells Urine Bacteria Hyaline Casts Urine Opiates Screen Urine Fentanyl Screen Ur Barbiturates Screen Ur Phencyclidine Scrn Ur Amphetamines Screen U Benzodiazepines Scrn Urine Cocaine Screen U Marijuana (THC) Screen 02/09/23 02/09/23 02/09/23 17:53 18:15 18:15 MCV MCH MCHC RDW Plt Count MPV Immature Gran % (Auto) Neut % (Auto) Lymph % (Auto) [place] % (Auto) Eos % (Auto) Baso % (Auto) Lymph # (Auto) [place] # (Auto) Eos # (Auto) Baso # (Auto) Abs Immat Gran (auto) Absolute Neuts (auto) Absolute Nucleated RBC Nucleated RBC % (auto) ESR PT INR D-Dimer High Sensitivty Anion Gap Estim Creat Clear Calc Estimated GFR Random Glucose Estimat Average Glucose Hemoglobin A1c % Calcium Troponin I High Sens 428.6 H* C-Reactive Protein Triglycerides Cholesterol LDL Cholesterol, Calc HDL Cholesterol Urine Color Yellow Urine Appearance Clear Urine pH 7.5 Ur Specific [place] 1.025 Urine Protein Negative Urine Glucose (UA) Negative Urine Ketones Negative Urine Blood Negative Urine Nitrite Negative Ur Leukocyte Esterase Trace H Urine RBC 0-2 Urine WBC 0-5 Ur Squamous Epith Cells 0-2 Urine Bacteria None Seen Hyaline Casts 0-2 Urine Opiates Screen Not Detected Urine Fentanyl Screen Not Detected Ur Barbiturates Screen Not Detected Ur Phencyclidine Scrn Not Detected Ur Amphetamines Screen Not Detected U Benzodiazepines Scrn Not Detected Urine Cocaine Screen Not Detected U Marijuana (THC) Screen Not Detected 02/09/23 02/09/23 02/10/23 21:09 21:15 06:43 MCV 84.1 MCH 27.5 MCHC 32.7 RDW 14.8 Plt Count 194 MPV 10.0 Immature Gran % (Auto) 0.4 Neut % (Auto) 52.1 Lymph % (Auto) 31.2 [place] % (Auto) 9.8 Eos % (Auto) 6.3 H Baso % (Auto) 0.2 Lymph # (Auto) 1.4 [place] # (Auto) 0.5 Eos # (Auto) 0.3 Baso # (Auto) 0.0 Abs Immat Gran (auto) 0.02 Absolute Neuts (auto) 2.4 Absolute Nucleated RBC 0.000 Nucleated RBC % (auto) 0.0 ESR PT 26.8 H INR 2.3 H D-Dimer High Sensitivty Anion Gap Estim Creat Clear Calc Estimated GFR Random Glucose Estimat Average Glucose 82 Hemoglobin A1c % 4.5 Calcium Troponin I High Sens C-Reactive Protein Triglycerides Cholesterol LDL Cholesterol, Calc HDL Cholesterol Urine Color Urine Appearance Urine pH Ur Specific [place] Urine Protein Urine Glucose (UA) Urine Ketones Urine Blood Urine Nitrite Ur Leukocyte Esterase Urine RBC Urine WBC Ur Squamous Epith Cells Urine Bacteria Hyaline Casts Urine Opiates Screen Urine Fentanyl Screen Ur Barbiturates Screen Ur Phencyclidine Scrn Ur Amphetamines Screen U Benzodiazepines Scrn Urine Cocaine Screen U Marijuana (THC) Screen 02/10/23 02/10/23 06:43 07:21 MCV MCH MCHC RDW Plt Count MPV Immature Gran % (Auto) Neut % (Auto) Lymph % (Auto) [place] % (Auto) Eos % (Auto) Baso % (Auto) Lymph # (Auto) [place] # (Auto) Eos # (Auto) Baso # (Auto) Abs Immat Gran (auto) Absolute Neuts (auto) Absolute Nucleated RBC Nucleated RBC % (auto) ESR PT 38.0 H INR 3.2 H D-Dimer High Sensitivty Anion Gap 11 L Estim Creat Clear Calc 72.9 Estimated GFR > 60 Random Glucose 86 Estimat Average Glucose Hemoglobin A1c % Calcium 9.1 Troponin I High Sens C-Reactive Protein Triglycerides Cholesterol LDL Cholesterol, Calc HDL Cholesterol Urine Color Urine Appearance Urine pH Ur Specific [place] Urine Protein Urine Glucose (UA) Urine Ketones Urine Blood Urine Nitrite Ur Leukocyte Esterase Urine RBC Urine WBC Ur Squamous Epith Cells Urine Bacteria Hyaline Casts Urine Opiates Screen Urine Fentanyl Screen Ur Barbiturates Screen Ur Phencyclidine Scrn Ur Amphetamines Screen U Benzodiazepines Scrn Urine Cocaine Screen U Marijuana (THC) Screen Assessment and Plan (1) Stroke: Status: Acute Plan hosp d#2 53yo F with CAD 53-year-old female with history of coronary artery disease, [facility] Jamal's mitral valve anticoagulated with warfarin, Sjogren's disease, 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 - continue ASA, atorvastatin, warfarin as below - Neuro consult, PT/OT/NON DESTRUCTIVE TESTING TECHNICIAN pending - TTE pending # elevated troponins - flat, likely due to CVA, Cardiology consulted, TTE pending to assess for stress-induced cardiomyopathy # anticogulated with warfarin - hx labile INRs, INR last night subtherapeutic at 2.3, therapeutic this AM at 3.2 but will give 1 dose therapeutic enoxaparin as per Cardiology to cover until INR therapeutic for 2 days in a row # CAD - ASA, statin # CML - continue nilotinib # VTE ppx: warfarin # dispo: anticipate home likely tomorrow In my clinical judgment, the patient requires continued inpatient hospitalization for the following reasons: neurological consultation Time Spent With Patient Time: Total time managing care of this patient today ___45_ minutes. Quality Stroke Does the patient have a stroke diagnosis?: Yes Reason for No Anti-thrombotic by Day Two: Drug treatment not indicated VTE Prior VTE?: No VTE Risk Level:: Medical - moderate - high VTE Device Contraindication: Treatment Not Indicated VTE Drug Contraindication: N/A - Med Ordered
[2023-02-10 15:33] VITALS: PULSE 87; RESP 16; TEMP 36.6; O2SAT 100
[2023-02-10 16:16] VITALS: BP 124/70
--- NOTE | 2023-02-10 17:22 | PM.NEUROCN ---
History of Present Illness Data of Consult Service Date: 02/10/23 Primary Care Provider: Unknown Physician HPI Reason for consult: ? stroke with dysarthria nd left sideded weakness and paresthesia This is a 53-year-old female with history of coronary artery disease, myocardial infarction, Multiple small strokes in 2015 and 2 other times with full recovery, anticoagulated with Coumadin, CML, Sjogren's disease presented to the ED with dysarthria and paresthesias/weakness of the left extremities.? She states around 11:25, she developed confusion and uncoordination of her left extremities with difficulty walking and speaking , weakness of the left side of the face.? The symptoms in the left upper and lower extremity have resolved but she still experiences some tingling/numbness in the left side of the face. Her INR was 2.7 indicating compliance with her coumadin. Denies any trauma. BP was 151/80 at its highest.? There is no leukocytosis, anemia, platelet level normal.? PTT 30.5, INR 2.7.MRI brain shows no acute stroke, only old small strokes in left caudate and thalamus, right parietal and cerebellar hemispheres. CTA of the head and neck shows no occlusive disease Review of Systems Review of Systems: General: No fevers, malaise, unintentional weight loss HEENT: No blurred vision, diplopia. No sore throat, nasal congestion, rhinorrhea, sinus pain, ear pain Cardiovascular: No chest pain, palpitations, or leg edema Respiratory: No shortness of breath, wheezing, cough GI: No abdominal pain, nausea, vomiting, diarrhea, constipation, melena, hematochezia : No dysuria, hematuria, increased urinary frequency, decreased urinary output MSK: No myalgia, back pain Neuro: No headaches, +LUE and LLE weakness/paresthesias, +facial droop, +slurred speech Skin: No rashes or lesions Yes all other systems are reviewed and are negative and Unobtainable due to mental status (patient appeared anxious and only able to talk very softly) Constitutional: Constitutional: Reports weakness Eyes: Eyes: Reports no additional eye complaints Cardiovascular: Cardiovascular: Reports no additional cardiovascular complaints Respiratory: Respiratory: Reports no additional respiratory complaints Gastrointestinal: Gastrointestinal: Reports no additional gastrointestinal complaints Musculoskeletal: Musculoskeletal: Reports no additional musculoskeletal complaints Neurologic: Reports Neuro-related abnormal movements, Reports Abnormal speech present, Reports lack of coordination, Denies Sensory deficit (Neuro), Reports paresthesias ( Left face) and Reports weakness PMFSH Past Medical History Medical History delivery delivered H/O Sjogren's disease Leukemia Myocardial infarct Stroke Surgical History Surgical History History of heart surgery Social History Social History Household Members: Children Housing: Apartment Do you presently have visiting nurse or other home services: No Alcohol intake: never Patient Tobacco Use Status: Former Tobacco user Quit Date: 3 weeks ago Cigarettes Per Day: 2 Substance Use Type: Heroin Meds Allergies Allergy/AdvReac Type Severity Reaction Status Date / Time cephalexin [From KEFLEX] Allergy Severe ANGIOEDEMA Verified 02/05/23 13:56 Penicillins [PCN] Allergy Severe DIFF Verified 02/05/23 13:56 BREATHING pilocarpine [PILOCARPINE] Allergy Severe DIFFICULTY Verified 02/05/23 13:56 BREATHING prochlorperazine Allergy Severe DIFFICULTY Verified 02/05/23 13:56 [From COMPAZINE] BREATHING Active Medications: Current Medications Acetaminophen (Acetaminophen 325 Mg Tablet) 650 mg PO Q6H PRN PRN Reason: Pain, Mild (Pain Scale 1-3) Artificial Tears (Artificial Tears 15 Ml Drops) 1 drop EYE-BOTH 5XD PRN PRN Reason: Dry Eyes Artificial Tears (Artificial Tears 15 Ml Drops) 2 drop EYE-BOTH Q4H PRN PRN Reason: dry eye Last Admin: 02/10/23 12:57 Dose: 2 drop Aspirin (Aspirin Enteric Coated 81 Mg Tablet.Dr) 81 mg PO DAILY [facility] Last Admin: 02/10/23 07:49 Dose: 81 mg Atorvastatin Calcium (Atorvastatin Calcium 40 Mg Tablet) 40 mg PO DAILY [facility] Last Admin: 02/10/23 07:49 Dose: 40 mg Docusate Sodium (Docusate Sodium 100 Mg Capsule) 100 mg PO DAILY PRN PRN Reason: Constipation Melatonin (Melatonin 3 Mg Tablet) 6 mg PO BEDTIME PRN PRN Reason: Insomnia Non-Formulary Medication (Nilotinib) 300 mg PO BID [facility] Ondansetron HCl (Ondansetron Hcl 4 Mg/2 Ml Vial) 4 mg IVPUSH Q8H PRN PRN Reason: Nausea and Vomiting Pharmacy Consult (Consult Rx Perform Med Rec) 1 each MISCELLANE ONCE PRN PRN Reason: Consult order Sodium Chloride (0.9 % Sodium Chloride Flush 3 Ml Syringe) 3 ml IVFLUSH QSHIFT [facility] Last Admin: 02/10/23 07:49 Dose: 3 ml Warfarin Sodium (Warfarin Sodium 10 Mg Tablet) 10 mg PO DAILY@1800 [facility] Home Medications Medication Instructions Recorded Confirmed Last Taken Type metoprolol succinate 50 mg 50 mg PO DAILY 10/14/20 02/09/23 Unknown History tablet,extended release 24 hr nilotinib 150 mg capsule 300 mg PO BID 10/14/20 02/09/23 Unknown History polyvinyl alcohol 1.4 % eye drops 1 drp ophthalmic (eye) 5XD PRN Dry 02/09/23 02/09/23 Unknown History (Artificial Tears (polyvinyl Eyes alcohol)) warfarin 5 mg tablet 10 mg PO DAILY@1800 02/09/23 02/09/23 02/09/23 History Physical Exam Vital Signs: Vital Signs: Last Vital Signs Temp 97.8 F 02/10/23 15:33 Pulse 87 02/10/23 15:33 Resp 16 02/10/23 15:33 BP 124/70 02/10/23 16:16 Pulse Ox 100 02/10/23 15:33 O2 Del Method Room Air 02/10/23 15:33 BMI result Body Mass Index 26.8 Const: Other: patient talking softly but appearing anxious General: cooperative, comfortable, no acute distress, well developed, alert and awake Nutritional Appearance: average body habitus Orientation/consciousness: oriented to person and patient oriented x3 Limitations: no limitations HEENT: Head: Yes normal to inspection, Yes normocephalic and Yes atraumatic Ears: external ears normal General nose exam: Normal external nose present Mouth: Normal oral and palatal mucosa present and oropharynx normal Throat: Yes posterior oropharynx normal Eyes: General: appearance normal, both eyes and all related structures Neck: Other: supple Neck: Yes normal visual inspection, Yes trachea midline, Yes supple and Yes no JVD Chest: Chest palpation & inspection: normal inspection of the chest and other ( well-healed sternotomy scar) Resp: Effort & Inspection: normal respiratory effort Auscultation: clear to auscultation bilaterally Cardio: Jugular venous distension: no JVD Palpation: normal PMI Rate: regular rate Rhythm: regular rhythm Heart sounds: S1 normal heart sound present, S2 normal heart sound present, Clicking heart sound present ( crisp opening and closing click of [place] mitral valve), no gallops, no murmurs and no rubs Peripheral pulses: Peripheral pulses 2+ throughout GI: Inspection: Yes normal to inspection Palpation (GI): Soft to palpation, nontender and No hepatosplenomegaly present Auscultation: normal bowel sounds : General: Yes no CVA tenderness Back/Spine/Pelvis: Back: no CVA tenderness Skin: General skin exam: no rashes or lesions noted Neuro: Other: Speech is normal with no dysarthria. No facial droop. Note drift of the upper extremities. Muscle tone and strength are normal except for minimal weakness of the left bullard operator and left triceps. Patient has some subjective decrease in sensation on the left face and left hand. Plantar response are flexort General: oriented to person, patient oriented x3 and no focal motor deficits Cranial nerves: Yes CN's II-XII intact bilaterally Speech: Abnormal speech present Sensory Exam: No Sensory deficit (Neuro) Extrem: General: Yes normal to inspection and Yes no clubbing, cyanosis or edema Psych: Appearance: grossly normal Results Labs 02/10/23 06:43 02/10/23 06:43 Labs: Short CBC 02/10/23 Range/Units 06:43 WBC 4.6 L (4.8-10.8) X10*3/uL Hgb 12.1 (12.0-16.0) g/dl Hct 37.0 (37.0-47.0) % Plt Count 194 (160-400) X10*3/uL BMP 02/10/23 06:43 Sodium 143 Potassium 3.9 Chloride 109 H Carbon Dioxide 27 BUN 9 Creatinine 0.81 Calcium 9.1 Urine 02/09/23 Range/Units 18:15 Urine Color Yellow Urine Appearance Clear Urine pH 7.5 (5.0-9.0) Ur Specific [place] 1.025 (1.005-1.025) Urine Protein Negative (Neg-Trace) mg/dL Urine Glucose (UA) Negative (Negative) mg/dL Assessment and Plan (1) Stroke: Status: Acute Probable right hemisphere TIA. Patient has a negative MRI for any acute findings. She still has some subjective sensory symptoms on the left side. She has been reassured. I would add aspirin 81 mg a day. Patient can be discharged. She should be started on Coumadin 10 mg a day, which is her Usual daily Dose. Plan hosp d#2 53yo F with CAD 53-year-old female with history of coronary artery disease, [place]'s mitral valve anticoagulated with warfarin, Sjogren's disease, 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 - continue ASA, atorvastatin, warfarin as below - Neuro consult, PT/OT/MEDIA SERVICES DIRECTOR pending - TTE pending # elevated troponins - flat, likely due to CVA, Cardiology consulted, TTE pending to assess for stress-induced cardiomyopathy # anticogulated with warfarin - hx labile INRs, INR last night subtherapeutic at 2.3, therapeutic this AM at 3.2 but will give 1 dose therapeutic enoxaparin as per Cardiology to cover until INR therapeutic for 2 days in a row # CAD - ASA, statin # CML - continue nilotinib # VTE ppx: warfarin # dispo: anticipate home likely tomorrow In my clinical judgment, the patient requires continued inpatient hospitalization for the following reasons: neurological consultation Time Spent With Patient Time: Total time managing care of this patient today ____ minutes. Procedures Date of Service Date of Service: 02/10/23
--- NOTE | 2023-02-10 17:39 | MHC.SP.ADU ---
Referring provider: Mariela Melgar Reason for Referral: dysarthria Type of Treatment: [id number] Evaluation of Speech Sound Production Date of Plan of Treatment: 02/10/23 Onset of Symptoms/Illness: 02/09/23 Date Treatment Started: 02/10/23 Medical Diagnosis: Stroke Primary Speech Language Diagnosis: R47.1 Dysarthria History Pt is 53 year old female who presented to ED w/ slow dysarthric speech and suspicion of stroke. Per chart review, pt had stroke approximately 1 year ago resulting in aphasia. 02/[address] & Head/Neck CTA report There is a small indeterminate age infarct involving the left thalamus and posterior limb of the left internal capsule that could be more definitively assessed with MRI if indicated. No hemorrhage. Chronic infarcts within the left caudate and the right cerebellum again noted. 02/10 MRI reports no acute infarct stable scattered small chronic infarcts and very mild while matter signal changes. Pt has noteworthy hx of Sjorgren's disease which is commonly associated w/ dry mouth. Pt reports she always drinks while she eats because of recommendations from medical professional d/t Sjorgren's. Medical History: delivery delivered H/O Sjogren's disease Leukemia Myocardial infarct Stroke Hx cardiac surgery Respiratory Needs: Room Air Patient Orientation: Alert & Oriented x 4 Social History: Employment Status: Unknown Highest level of education obtained: Unknown/Unable to report Current Living Situation: Unknown Assistive Devices in use: Unknown Past Speech Language Therapy: None reported; however chart review reports hx of stroke and aphasia approximately 1 year ago Other Therapies Seen in Current Calendar Year: Unknown Swallowing History: Dysphagia Specific: Risk of Aspiration Comments: Increased risk of aspiration d/t Sjogren's disease and stroke Pre-eval Risk for Aspiration: Neurological Condition Pre-evaluation Dietary Consistencies: Regular Pre-eval Liquid Intake: Thin Pre-eval Medication Intake: Whole with Liquid Reported Speech, Language, Cognition difficulties: Comments: Pt reports weakness on L side of mouth and slow speech. She reports that her speech has improved since yesterday. Assessment Speech Production: Dysarthric Observations: Pt presents w/ mild dysarthric speech marked by mildly slow and imprecise articulation. AMRs and SMRs were slow. Pt presented with diminished breath support during prolonged phonation as well as during AMR and SMR assessment. Pt reports that the left side of her mouth feels slow when she speaks. Informal Voice Assessment: Voice Loudness: Normal Voice Nasal Resonance: Normal Voice Oral Resonance: Normal Voice Phonatory-based Quality: Normal Voice Pitch: Normal Voice Other Observations: Inadequate Breath Support Clinical Impression: Clinicial Observations: Tests of Speech & Lang Adults: Clinical Impression: Did Not Test Tests of Cognition: Clinical Impression: Did Not Test Augmentative and Alternative Communication: Did Not Test Impressions and Recommendations Prognosis for Improvement: Good Recommendation for Speech Therapy: Outpatient Speech Therapy Inpatient Speech Therapy Recommend patient continue with regular solids and thin liquids. Recommend STEEL WELDER follow pt during hospitalization d/t dysarthric speech and reported swallowing concerns/difficulties. Recommend ENT consultation d/t dx of Sjorgren's disease and reported difficulty swallowing d/t dry mouth. Pt may benefit from future outpatient instrumental study by ENT and/or STEEL WELDER. Recommended Referrals to be Discussed with Primary Care Provider: ENT Consult Recommend ENT consultation d/t dx of Sjorgren's disease and reported difficulty swallowing d/t dry mouth Patient Education: Completed: Yes Patient/Caregiver Education: Described Results of Evaluation Patient expressed understanding of evaluation Family/Caregivers expressed understanding of results Family/Caregivers expressed agreement with goals and treatment plan Automobile Accessories Installer Clinican/Clinical Fellow: No Supervisory Statement: No Speech Language Pathologist: Sheila Broussard M.A., STEEL WELDER
[2023-02-10] MEDS: Warfarin Sodium 10 MG TABLET PO (18:02)
[2023-02-10 19:25] VITALS: BP 136/59; PULSE 82; RESP 20; TEMP 36.7; O2SAT 100
[2023-02-11] VITALS: BP 126/60; PULSE 70; RESP 20; TEMP 36.3; O2SAT 100
[2023-02-11 03:05] VITALS: BP 121/71; PULSE 71; RESP 20; TEMP 36.6; O2SAT 99
[2023-02-11 07:33] VITALS: BP 148/69; PULSE 92; RESP 20; TEMP 36; O2SAT 99
[2023-02-11] MEDS: Aspirin Enteric Coated 81 MG TABLET.DR PO (08:59)
[2023-02-11] MEDS: Atorvastatin Calcium 40 MG TABLET PO (08:59)
[2023-02-11] MEDS: 0.9 % Sodium Chloride Flush 3 ML SYRINGE IVFLUSH (09:01)
--- NOTE | 2023-02-11 10:44 | MHC.CM.PN ---
EMR reviewed and per MD rounds, pt medically cleared for D/C home today with outpatient services, pt has her own transportation.
--- NOTE | 2023-02-11 10:46 | PM.DS ---
DS: Providers Provider Date of Service: 02/11/23 Date of admission: 02/09/23 20:38 Date of discharge: 02/11/23 Primary care physician: Unknown Physician Consults: 02/09/23 20:38 Consult to Cardiology Routine Consulting Provider: [facility] [place] Cardiovascular Services Reason for consultation: elevated trops Has provider been notified: Yes Consult to Neurology Routine Consulting Provider: [facility] Reason for consultation: stroke DS: Diagnosis Discharge Diagnosis (1) H/O mitral valve replacement with mechanical valve: Status: Acute (2) Elevated troponin: Status: Acute (3) TIA (transient ischemic attack): Status: Acute DS: Summary Hospital Course Hospital Course: from admission H+P 02/09/23 by hospitalist Mariela Melgar PA: 53-year-old female with history of coronary artery disease with myocardial infarction, history of stroke anticoagulated with Coumadin, CML, history of Sjogren's disease presented to the ED earlier today for evaluation dysarthria and paresthesias/weakness of the left extremities.? She states around 11:25, she developed confusion and on coordination of her extremities with difficulty walking and speaking.? She states she opened the door knowing that she would need help but instead of calling 911 walked downstairs to ask for help from a neighbor.? Shortly after, she developed sudden onset paresthesias and weakness of the left side of the face left upper extremity and left lower extremity.? She describes dysarthria.? The symptoms in the left upper and lower extremity have resolved but she still experiences some tingling/numbness in the left side of the face with left-sided facial droop and dysarthria.? She reports compliance with her medications. She is also noted to have subconjunctival hemorrhage of the right eye.? Denies any trauma. On arrival, vitals within normal limits though slightly hypertensive at 151/80 at its highest.? There is no leukocytosis, anemia, platelet level normal.? PTT 30.5, INR 2.7.? D-dimer <150.? Renal function normal, electrolyte levels normal.? Glucose 121.? Initial troponin 431.5, repeat 428.6.? Urinalysis unremarkable.? Urine tox screen negative.? Head CT 8 negative for any acute intracranial abnormality but does show old right cerebellar and left basal ganglia infarct similar to recent exam.? CTA head/neck shows small indeterminate age infarct involving the left thalamus and posterior limb of the left internal capsule, MRI recommended.? No acute hemorrhage.? There is also chronic infarcts as previously noted.? No significant arterial stenosis or arterial occlusions within the head or neck.? She denies any fevers, chills, domicile pain, nausea, vomiting, diarrhea, lightheadedness, shortness of breath, palpitations, or chest pain. This 53-year-old female with history of coronary artery disease, [facility] mitral valve anticoagulated with warfarin, Sjogren's disease, CML on nilotinib, prior CVA was admitted with acute stroke symptoms and elevated Tn-I. She was admitted to the [facility] [place]. CTA head/neck showing small indeterminate age infarct involving the left thalamus and posterior limb of the left internal capsule;?no other acute abnormality; there are also chronic infarcts noted on CTA of the head/neck and head CT within the left caudate in the right cerebellum. MRI showed no acute intracranial process; stable scattered small chronic infarcts in very mild chronic white matter signal changes. Neurology was consulted along with PT and [employer]. She was thought to have suffered a TIA. She was started on aspirin and atorvastatin for secondary prevention. Cardiology was consulted for the elevated troponin. She had no chest pain or EKG changes and TTE did not show any wall motion abnormalities; the troponin elevations were attributed to cerebral ischemia. She has a history of labile INRs and got 1 dose of therapeutic enoxaparin when her INR was 2.3. On the day of discharge, INR was 4 and warfarin should be held until INR is rechecked on 02/12/23. Time Spent with Patient Time attestation: Total time managing care of this patient today ____ minutes. Discharge coordination time: Greater than 30 minutes Quality: Safe Use of Opioids Does Pt have an Active Cancer Diagnosis on the Problem List?: No Quality: Stroke Does the patient have a stroke diagnosis?: No Physical Exam Vital Signs: Vital Signs: Last Vital Signs Temp 96.8 F 02/11/23 07:33 Pulse 92 02/11/23 07:33 Resp 20 02/11/23 07:33 BP 148/69 H 02/11/23 07:33 Pulse Ox 99 02/11/23 07:33 O2 Del Method Room Air 02/11/23 07:33 BMI result Body Mass Index 26.8 DS: Data Data Completed and Pending Completed studies during hospitalization [Text1]: Laboratory Results WBC 4.6 X10*3/uL (4.8-10.8) L 02/10/23 06:43 RBC 4.40 X10*6/uL (4.20-5.50) 02/10/23 06:43 Hgb 12.1 g/dl (12.0-16.0) 02/10/23 06:43 Hct 37.0 % (37.0-47.0) 02/10/23 06:43 MCV 84.1 fL (80.0-98.0) 02/10/23 06:43 MCH 27.5 pg (27.0-33.0) 02/10/23 06:43 MCHC 32.7 g/dl (31.0-35.0) 02/10/23 06:43 RDW 14.8 % (11.0-16.0) 02/10/23 06:43 Plt Count 194 X10*3/uL (160-400) 02/10/23 06:43 MPV 10.0 fL (9.4-12.3) 02/10/23 06:43 Immature Gran % (Auto) 0.4 % (0.0-0.4) 02/10/23 06:43 Neut % (Auto) 52.1 % (45-73) 02/10/23 06:43 Lymph % (Auto) 31.2 % (20-40) 02/10/23 06:43 Tate % (Auto) 9.8 % (2-11) 02/10/23 06:43 Eos % (Auto) 6.3 % (0-4) H 02/10/23 06:43 Baso % (Auto) 0.2 % (0-2) 02/10/23 06:43 Lymph # (Auto) 1.4 X10*3/uL (1.2-4.9) 02/10/23 06:43 Tate # (Auto) 0.5 X10*3/uL (0.1-1.2) 02/10/23 06:43 Eos # (Auto) 0.3 X10*3/uL (0.0-0.4) 02/10/23 06:43 Baso # (Auto) 0.0 X10*3/uL (0.0-0.2) 02/10/23 06:43 Abs Immat Gran (auto) 0.02 X10*3/uL (0.00-0.03) 02/10/23 06:43 Absolute Neuts (auto) 2.4 x10*3/uL (2.0-8.3) 02/10/23 06:43 Absolute Nucleated RBC 0.000 X10*3/uL (0.0-0.012) 02/10/23 06:43 Nucleated RBC % (auto) 0.0 /100WBC (0.0-0.2) 02/10/23 06:43 ESR 5 MM/HR (0-20) 02/09/23 13:28 PT 49.0 SEC (10.0-13.1) H 02/11/23 06:02 Whole Blood PT 32.9 sec (11.1-13.5) H 02/09/23 12:02 INR 4.0 (0.9-1.1) H 02/11/23 06:02 Whole Blood INR 2.7 (0.9-1.1) H 02/09/23 12:02 APTT 53.1 SEC (26.0-36.4) H D 02/09/23 13:28 D-Dimer High Sensitivty < 150 NG/ML 02/09/23 13:28 Sodium 143 mmol/L (135-145) 02/10/23 06:43 Potassium 3.9 mmol/L (3.3-5.1) 02/10/23 06:43 Chloride 109 mmol/L (96-108) H 02/10/23 06:43 Carbon Dioxide 27 mmol/L (22-29) 02/10/23 06:43 Anion Gap 11 (12-20) L 02/10/23 06:43 BUN 9 mg/dL (9-16) 02/10/23 06:43 Creatinine 0.81 mg/dL (0.5-1.4) 02/10/23 06:43 Estim Creat Clear Calc 72.9 02/10/23 06:43 Estimated GFR > 60 02/10/23 06:43 POC Glucose 121 mg/dL (60-115) H 02/09/23 12:01 Random Glucose 86 mg/dL (60-115) 02/10/23 06:43 Estimat Average Glucose 82 mg/dL 02/09/23 21:15 Hemoglobin A1c % 4.5 % 02/09/23 21:15 Calcium 9.1 mg/dL (8.4-10.2) 02/10/23 06:43 Total Creatine Kinase 104 U/L (26-140) 02/09/23 13:28 Troponin I High Sens 428.6 ng/L (<3.5-17.0) H* 02/09/23 17:53 C-Reactive Protein 0.14 mg/dL (< or = 0.50) 02/09/23 13:28 Triglycerides 157 mg/dL 02/09/23 13:28 Cholesterol 218 mg/dL 02/09/23 13:28 LDL Cholesterol, Calc 144 mg/dl 02/09/23 13:28 HDL Cholesterol 43 mg/dL 02/09/23 13:28 Urine Color Yellow 02/09/23 18:15 Urine Appearance Clear 02/09/23 18:15 Urine pH 7.5 (5.0-9.0) 02/09/23 18:15 Ur Specific [place] 1.025 (1.005-1.025) 02/09/23 18:15 Urine Protein Negative mg/dL (Neg-Trace) 02/09/23 18:15 Urine Glucose (UA) Negative mg/dL (Negative) 02/09/23 18:15 Urine Ketones Negative mg/dL (Negative) 02/09/23 18:15 Urine Blood Negative (Negative) 02/09/23 18:15 Urine Nitrite Negative (Negative) 02/09/23 18:15 Ur Leukocyte Esterase Trace (Negative) H 02/09/23 18:15 Urine RBC 0-2 /HPF (0-2) 02/09/23 18:15 Urine WBC 0-5 /HPF (0-5) 02/09/23 18:15 Ur Squamous Epith Cells 0-2 /HPF (0-2) 02/09/23 18:15 Urine Bacteria None Seen (None Seen) 02/09/23 18:15 Hyaline Casts 0-2 /LPF (0-2) 02/09/23 18:15 Urine Opiates Screen Not Detected (Not Detect) 02/09/23 18:15 Urine Fentanyl Screen Not Detected (Not Detect) 02/09/23 18:15 Ur Barbiturates Screen Not Detected (Not Detect) 02/09/23 18:15 Ur Phencyclidine Scrn Not Detected (Not Detect) 02/09/23 18:15 Ur Amphetamines Screen Not Detected (Not Detect) 02/09/23 18:15 U Benzodiazepines Scrn Not Detected (Not Detect) 02/09/23 18:15 Urine Cocaine Screen Not Detected (Not Detect) 02/09/23 18:15 U Marijuana (THC) Screen Not Detected (Not Detect) 02/09/23 18:[address] 02/09/23 12:08 IMPRESSION: No acute findings. Old right cerebellar and left basal ganglia infarcts similar to recent exam. This critical result was discussed with Dr. Romero at 1221 hours on 02/09/2023. It was ascertained that the content and urgency of the report was understood at the time of direct communication. Head/Neck CTA 02/09/23 12:38 IMPRESSION: - There is a small indeterminate age infarct involving the left thalamus and posterior limb of the left internal capsule that could be more definitively assessed with MRI if indicated. No hemorrhage. Chronic infarcts within the left caudate and the right cerebellum again noted. - No significant arterial stenoses and no acute arterial occlusions within the head or neck. Findings discussed with Dr. Romero at 12:58 PM on 02/09/2023. Brain MRI 02/10/23 12:03 IMPRESSION: No acute intracranial process. Stable scattered small chronic infarcts in very mild chronic white matter signal changes. TTE 02/10/23 1. Normal LV systolic function with LVEF of 60 65% ? 2. Mildly dilated left atrium? 3. Normally functioning mechanical prostheses in mitral position with mean gradient of 3 mmHg ? 4. Normal RV systolic pressure ? 5. No gross pericardial effusion ? Labs on day of discharge: Laboratory Results - last 24 hr 02/11/23 06:02 PT 49.0 H INR 4.0 H Discharge Plan Discharge Anticipated Discharge Date/Time: 02/11/23 10:24 Patient Disposition: Home, Self-Care Discharge Diagnosis: TIA Referrals: Physical Therapy - [facility] [Outside] - 1 Week [facility] [Outside] - 1 Week Cha Leyva MD [Physician] - 1 Week Physician,Avis Sherman [Primary Care Provider] - 1 Week Discharge Medications: New atorvastatin 40 mg Tablet 40 mg PO DAILY Qty: 30 0RF aspirin 81 mg Tablet,Delayed Release (Dr/Ec) 81 mg PO DAILY Qty: 30 0RF Continued warfarin 5 mg tablet 5 mg PO DAILY Qty: 90 0RF Protocol: Dose Management Condition: Wednesday (Week One) Dose/Route: 10 mg Instruction: 2 x 5 mg tablets Condition: Wednesday Dose/Route: 10 mg Instruction: 2 x 5 mg tablets Condition: Wednesday Dose/Route: 10 mg Instruction: 2 x 5 mg tablets Condition: Wednesday Dose/Route: 10 mg Instruction: 2 x 5 mg tablets Condition: Dose/Route: 10 mg Instruction: 2 x 5 mg tablets Condition: Wednesday Dose/Route: 10 mg Instruction: 2 x 5 mg tablets Condition: Wednesday Dose/Route: 10 mg Instruction: 2 x 5 mg tablets Condition: Wednesday (Week Two) Dose/Route: 10 mg Instruction: 2 x 5 mg tablets Condition: Wednesday Dose/Route: 10 mg Instruction: 2 x 5 mg tablets Condition: Wednesday Dose/Route: 10 mg Instruction: 2 x 5 mg tablets Condition: Wednesday Dose/Route: 10 mg Instruction: 2 x 5 mg tablets Condition: Dose/Route: 10 mg Instruction: 2 x 5 mg tablets Condition: Wednesday Dose/Route: 10 mg Instruction: 2 x 5 mg tablets Condition: Wednesday Dose/Route: 10 mg Instruction: 2 x 5 mg tablets Protocol Text: Adjustment Start Date: Wednesday10/14/20 INR Value: 3.3 INR Date: 10/14/20 Recheck Date: 10/28/20 polyvinyl alcohol [Artificial Tears (polyvin alc)] 1.4 % Drops 1 drp OPHTHALMIC (EYE) 5XD PRN (Reason: Dry Eyes) warfarin 5 mg tablet 10 mg PO DAILY@1800 nilotinib 150 mg capsule 150 mg PO BID metoprolol succinate 50 mg tablet extended release 24 hr 50 mg PO DAILY Discharge Orders: Discharge Order (Routine); Ordered 02/11/23 Ordered By: Romulo Hooks Diet: Low salt diet Activity on Discharge: As tolerated Stand Alone Forms: Patient Portal Discharge page Other Ambulatory Orders: Prothrombin Time INR (Routine) Timeframe: [id number] Facility: [facility] - Location: Laboratory Ordered By: Romulo Hooks Care Plan Goals: stroke prevention Health Concerns: TIA Plan of Treatment: add aspirin 81 mg daily PLUS atorvastatin 40 mg daily hold warfarin on 02/11/23 for INR of 4; repeat INR on 02/12/23 and resume warfarin to achieve goal INR of 2.5-3.5 outpatient physical and speech therapy at [facility] [place] Please follow up with your primary care doctor within 1 week. Return to the hospital if you experience recurrent or worsening symptoms. Assessment: See Discharge Summary.
[2023-02-11 12:00] VITALS: BP 134/58; PULSE 93; RESP 20; TEMP 37.3; O2SAT 100
[2023-02-11 15:11] VITALS: BP 132/64; PULSE 80; RESP 17; TEMP 36.4; O2SAT 99
[2023-02-11 17:30] VITALS: BP 151/72; PULSE 86; RESP 20
== END 2023-02-11 18:06 | disposition home or self-care (01) | DRG 69 ==
LOC: HO.ED 20:20 → HO.EDOVER 21:01 → HO.IMC 02-10 01:50
PROVIDERS: Emergency Medicine; Student in an Organized Health Care Education/Training Program; Admitting Provider Physician Assistant; Emergency Provider Student in an Organized Health Care Education/Training Program; Visit Provider Family Medicine
DX: G45.9 Transient cerebral ischemic attack, unspecified (principal); C92.10 Chronic myeloid leukemia, BCR/ABL-positive, not having achieved remission; M35.00 Sjogren syndrome, unspecified; I25.10 Atherosclerotic heart disease of native coronary artery without angina pectoris; R47.1 Dysarthria and anarthria; R79.1 Abnormal coagulation profile; I25.2 Old myocardial infarction; Z95.2 Presence of prosthetic heart valve; Z87.891 Personal history of nicotine dependence; Z86.73 Personal history of transient ischemic attack (TIA), and cerebral infarction without residual deficits; Z88.0 Allergy status to penicillin; Z88.1 Allergy status to other antibiotic agents; Z79.01 Long term (current) use of anticoagulants; Z79.899 Other long term (current) drug therapy
CPT/HCPCS: 36415; 70450; 70496; 70498; 70551; 80048; 80061; 80307; 81001; 82550; 82947; 83036; 84484; 85025; 85379; 85610; 85652; 85730; 86140; 92522; 93005; 93306; 97161; 97165; 99285; J1650; Q9967

== ENCOUNTER 2023-08-24 01:01 | Emergency (ER) | payer OTHER, SELFPAY ==
[2023-08-24 02:15] VITALS: BMI 26.5
[2023-08-24 05:12] LABS: INTERNATIONAL NORM RATIO 1.1 (0.9-1.1); Prothrombin Time 13.9 SEC (11.1-13.3)
--- NOTE | 2023-08-24 05:18 | PC.NURSE ---
please see dowtime paperwork
--- NOTE | 2023-08-27 01:44 | ED.GENADULT ---
HPI - General Adult General Chief complaint: General Medical History of Present Illness HPI narrative: See downtime T chart Related Data Home Medications Medication Instructions Recorded Confirmed metoprolol succinate 50 mg 50 mg PO DAILY 10/14/20 02/09/23 tablet,extended release 24 hr nilotinib 150 mg capsule 150 mg PO BID 10/14/20 02/10/23 polyvinyl alcohol 1.4 % eye drops 1 drp ophthalmic (eye) 5XD PRN Dry 02/09/23 02/09/23 (Artificial Tears (polyvinyl Eyes alcohol)) warfarin 5 mg tablet 10 mg PO DAILY@1800 02/09/23 02/09/23 Previous Rx's Medication Instructions Recorded warfarin 5 mg tablet 5 mg PO DAILY #90 tabs 06/17/20 aspirin 81 mg tablet,delayed 81 mg PO DAILY #30 tabs 02/11/23 release atorvastatin 40 mg tablet 40 mg PO DAILY #30 tabs 02/11/23 Allergies Allergy/AdvReac Type Severity Reaction Status Date / Time cephalexin [From KEFLEX] Allergy Severe ANGIOEDEMA Verified 02/05/23 13:56 Penicillins [PCN] Allergy Severe DIFF Verified 02/05/23 13:56 BREATHING pilocarpine [PILOCARPINE] Allergy Severe DIFFICULTY Verified 02/05/23 13:56 BREATHING prochlorperazine Allergy Severe DIFFICULTY Verified 02/05/23 13:56 [From COMPAZINE] BREATHING PMFSH Past Medical History Medical History delivery delivered H/O Sjogren's disease Leukemia Myocardial infarct Stroke Surgical History History of heart surgery Social History Social History Household Members: Children Housing: Apartment Do you presently have visiting nurse or other home services: No Alcohol intake: never Comment: pt refuse camera and bed alarm; uses call light for assistance Patient Tobacco Use Status: Former Tobacco user Quit Date: 3 weeks ago Cigarettes Per Day: 2 Substance Use Type: Heroin Advance Directives: No Advance Directives Information Provided: No Physical Exam ED Vital Signs: BMI result Body Mass Index 26.5 Medical Decision Making Lab Data Labs: Lab Results 08/24/23 Range/Units 02:02 PT 13.9 H (11.1-13.3) SEC INR 1.1 D (0.9-1.1) Discharge Plan Discharge Clinical Impression: Medication refill Patient Disposition: Home, Self-Care Prescriptions: No Action warfarin 5 mg tablet 5 mg PO DAILY Qty: 90 0RF Protocol: Dose Management Condition: Wednesday (Week One) Dose/Route: 10 mg Instruction: 2 x 5 mg tablets Condition: Wednesday Dose/Route: 10 mg Instruction: 2 x 5 mg tablets Condition: Wednesday Dose/Route: 10 mg Instruction: 2 x 5 mg tablets Condition: Wednesday Dose/Route: 10 mg Instruction: 2 x 5 mg tablets Condition: Dose/Route: 10 mg Instruction: 2 x 5 mg tablets Condition: Wednesday Dose/Route: 10 mg Instruction: 2 x 5 mg tablets Condition: Wednesday Dose/Route: 10 mg Instruction: 2 x 5 mg tablets Condition: Wednesday (Week Two) Dose/Route: 10 mg Instruction: 2 x 5 mg tablets Condition: Wednesday Dose/Route: 10 mg Instruction: 2 x 5 mg tablets Condition: Wednesday Dose/Route: 10 mg Instruction: 2 x 5 mg tablets Condition: Wednesday Dose/Route: 10 mg Instruction: 2 x 5 mg tablets Condition: Dose/Route: 10 mg Instruction: 2 x 5 mg tablets Condition: Wednesday Dose/Route: 10 mg Instruction: 2 x 5 mg tablets Condition: Wednesday Dose/Route: 10 mg Instruction: 2 x 5 mg tablets Protocol Text: Adjustment Start Date: Wednesday10/14/20 INR Value: 3.3 INR Date: 10/14/20 Recheck Date: 10/28/20 polyvinyl alcohol [Artificial Tears (polyvin alc)] 1.4 % Drops 1 drp OPHTHALMIC (EYE) 5XD PRN (Reason: Dry Eyes) warfarin 5 mg tablet 10 mg PO DAILY@1800 atorvastatin 40 mg Tablet 40 mg PO DAILY Qty: 30 0RF aspirin 81 mg Tablet,Delayed Release (Dr/Ec) 81 mg PO DAILY Qty: 30 0RF nilotinib 150 mg capsule 150 mg PO BID metoprolol succinate 50 mg tablet extended release 24 hr 50 mg PO DAILY Interventions: ED Discharge Assessment Last Done: 08/24/23 02:55 Discharge Date/Time: 08/24/23 02:55
== END 2023-08-24 02:55 | disposition home or self-care (01) ==
PROVIDERS: Emergency Provider Internal Medicine
DX: Z76.0 Encounter for issue of repeat prescription (principal); Z79.899 Other long term (current) drug therapy; Z87.891 Personal history of nicotine dependence
CPT/HCPCS: 36415; 85610; 99282; 99283; J1650

== ENCOUNTER 2024-01-10 15:25 | Emergency (ER) | payer MEDICAID, SELFPAY ==
[2024-01-10 15:29] VITALS: BP 158/94; PULSE 102; RESP 18; TEMP 36; O2SAT 98; BMI 27.1
--- NOTE | 2024-01-10 16:28 | ED.GENADULT ---
HPI - General Adult General Chief complaint: Dyspnea Stated complaint: diff breathing Related Data Home Medications ?Medication ?Instructions ?Recorded ?Confirmed metoprolol succinate 50 mg 50 mg PO DAILY 10/14/20 01/11/24 tablet,extended release 24 hr nilotinib 150 mg capsule 150 mg PO BID 10/14/20 01/11/24 polyvinyl alcohol 1.4 % eye drops 1 drp ophthalmic (eye) 5XD PRN Dry 02/09/23 01/11/24 (Artificial Tears (polyvinyl Eyes alcohol)) Previous Rx's ?Medication ?Instructions ?Recorded warfarin 5 mg tablet 5 mg PO DAILY #90 tabs 06/17/20 Allergies Allergy/AdvReac Type Severity Reaction Status Date / Time cephalexin [From KEFLEX] Allergy Severe ANGIOEDEMA Verified 01/11/24 11:48 Penicillins [PCN] Allergy Severe DIFF Verified 01/11/24 11:48 BREATHING pilocarpine [PILOCARPINE] Allergy Severe DIFFICULTY Verified 01/11/24 11:48 BREATHING prochlorperazine Allergy Severe DIFFICULTY Verified 01/11/24 11:48 [From COMPAZINE] BREATHING iohexol [From Omnipaque] AdvReac Mild Numbness Verified 02/01/24 16:29 PMFSH Past Medical History Medical History H/O Sjogren's disease delivery delivered Leukemia Myocardial infarct Stroke Surgical History History of heart surgery Social History Social History Household Members: Children Housing: Apartment Do you presently have visiting nurse or other home services: No Alcohol intake: never Comment: pt refuse camera and bed alarm; uses call light for assistance Patient Tobacco Use Status: Former Tobacco user Cigarettes Per Day: 2 Substance Use Type: Heroin Physical Exam ED Vital Signs: Vital Signs - 24 hr 01/10/24 15:29 Temperature 96.8 F Pulse Rate 102 H Respiratory Rate 18 Blood Pressure 158/94 H Pulse Oximetry 98 Oxygen Delivery Method Room Air BMI result Body Mass Index 27.1 Course Course Course Narrative: This is an RME: Additional HPI, ROS, PE not included below will be deferred to primary provider. 53 yo f with pmhx of mechanical mitral valve presents with cold symptoms X 2 days. Reports productive cough and some blood in sputum. Denies nausea, vomiting, diarrhea. Discharge Plan Discharge Clinical Impression: Eloped from emergency department Patient Disposition: Left W/O Completing Treatment Prescriptions: No Action warfarin 5 mg tablet 5 mg PO DAILY Qty: 90 0RF Protocol: Dose Management Condition: Wednesday (Week One) Dose/Route: 10 mg Instruction: 2 x 5 mg tablets Condition: Wednesday Dose/Route: 10 mg Instruction: 2 x 5 mg tablets Condition: Wednesday Dose/Route: 10 mg Instruction: 2 x 5 mg tablets Condition: Wednesday Dose/Route: 10 mg Instruction: 2 x 5 mg tablets Condition: Dose/Route: 10 mg Instruction: 2 x 5 mg tablets Condition: Wednesday Dose/Route: 10 mg Instruction: 2 x 5 mg tablets Condition: Wednesday Dose/Route: 10 mg Instruction: 2 x 5 mg tablets Condition: Wednesday (Week Two) Dose/Route: 10 mg Instruction: 2 x 5 mg tablets Condition: Wednesday Dose/Route: 10 mg Instruction: 2 x 5 mg tablets Condition: Wednesday Dose/Route: 10 mg Instruction: 2 x 5 mg tablets Condition: Wednesday Dose/Route: 10 mg Instruction: 2 x 5 mg tablets Condition: Dose/Route: 10 mg Instruction: 2 x 5 mg tablets Condition: Wednesday Dose/Route: 10 mg Instruction: 2 x 5 mg tablets Condition: Wednesday Dose/Route: 10 mg Instruction: 2 x 5 mg tablets Protocol Text: Adjustment Start Date: Wednesday10/14/20 INR Value: 3.3 INR Date: 10/14/20 Recheck Date: 10/28/20 polyvinyl alcohol [Artificial Tears (polyvin alc)] 1.4 % Drops 1 drp OPHTHALMIC (EYE) 5XD PRN (Reason: Dry Eyes) nilotinib 150 mg capsule 150 mg PO BID metoprolol succinate 50 mg tablet extended release 24 hr 50 mg PO DAILY Discharge Date/Time: 01/10/24 20:00
== END 2024-01-10 20:00 | disposition left against medical advice (07) ==
PROVIDERS: Emergency Provider Emergency Medicine
DX: R06.02 Shortness of breath (principal); Z87.891 Personal history of nicotine dependence; Z79.899 Other long term (current) drug therapy
CPT/HCPCS: 99281

== ENCOUNTER 2024-01-11 11:33 | Observation (INO) | payer MEDICAID, SELFPAY ==
[2024-01-11] VITALS (8 sets, daily range): BP systolic 125–187; BP diastolic 61–91; PULSE 77–113; RESP 16–20; TEMP 36.6–36.9; O2SAT 97–100; BMI 26.9
--- NOTE | ~2024-01-11 | CT_ITS ---
EXAMINATION: CT HEAD WITHOUT CONTRAST CT ANGIOGRAM HEAD CT ANGIOGRAM NECK CLINICAL INFORMATION: Transient ischemic attack. Double vision. COMPARISON: Brain MRI from 02/10/2023. CTA head and neck from 02/09/2023. TECHNIQUE: Initial noncontrast mainframe consultant imaging of the head and neck was performed. Noncontrast head CT was also performed. Test bolus sequences followed by intravenous administration 70 mL of Omnipaque 350. Helical imaging was performed in the axial plane from the aortic arch to the skull vertex. Delayed postcontrast imaging of the head was also performed. The data was processed at the senior nuclear medicine technologist's workstation for generation of MIP sequences. Angled MIPs and volume rendered reformatted images were also generated at an offline 3D workstation. Stenoses are assessed in accordance with NASCET criteria unless otherwise indicated. This CT examination was performed using dose optimization techniques as appropriate, variously including the following: *Automated exposure control. *Adjustment of mA and/or kV according to patient size (this includes techniques or standardized protocols for targeted exams where dose is matched to indication/reason for exam; i.e. extremities or head). *Use of iterative reconstruction technique. DLP: 1994 mGy-cm FINDINGS: CT Head: There is chronic encephalomalacia within the right cerebellar hemisphere with associated volume loss. Chronic lacunar infarcts of the bilateral deep nuclei and cerebellum. No additional loss of estrada-white matter differentiation. No evidence of acute intracranial hemorrhage. A few foci of hypoattenuation in the periventricular and deep white matter are consistent with mild microangiopathy. The ventricles are normal in morphology and size. No evidence for obstructive hydrocephalus. No abnormal mass effect or midline shift. No extra-axial fluid collections. No pathologic intra-axial enhancement. No acute soft tissue or osseous abnormalities. The mastoid air cells and visualized paranasal sinuses are clear. CT Neck: The thyroid gland and remaining cervical soft tissues are within normal limits. Straightening of the normal cervical lordosis. Moderate degenerative disc disease from C5-C7. Facet and uncovertebral joint arthropathy leads to osseous encroachment on the neural foramina from C5-C7. CT Upper Chest: Changes of prior median sternotomy. The visualized lung apices and upper mediastinum are within normal limits. Neck CTA: Aortic Arch: Normal contour and caliber with mild calcific atherosclerotic disease. Two vessel branching pattern of the arch with left common carotid artery arising from the brachiocephalic trunk. Great Vessel Origins: No significant stenosis of the branch origins. Right Common Carotid Artery: No focal stenosis or occlusion. Cervical Right Internal Carotid Artery: Mild calcific atherosclerotic disease of the carotid bulb and proximal internal carotid artery without flow-limiting stenosis. Left Common Carotid Artery: No focal stenosis or occlusion. Cervical Left Internal Carotid Artery: Mild calcific atherosclerotic disease of the carotid bulb and proximal internal carotid artery without flow-limiting stenosis. Cervical Right Vertebral Artery: Co-dominant. No focal stenosis or occlusion. Cervical Left Vertebral Artery: Co-dominant. No focal stenosis or occlusion. Brain CTA: Intracranial Internal Carotid Arteries: No focal stenosis or occlusion. Right Anterior Cerebral Artery: Normal A1 segment. Normal opacification of the distal RINA segments. Left Anterior Cerebral Artery: Normal A1 segment. Normal opacification of the distal RINA segments. Anterior Communicating Artery: Normal. Right Middle Cerebral Artery: Normal M1 segment of the MCA without focal stenosis or occlusion. Normal arborization of the distal segments. Left Middle Cerebral Artery: Normal M1 segment of the MCA without focal stenosis or occlusion. Normal arborization of the distal segments. Right Vertebral Artery: Normal V4 segment. Normal opacification of the proximal segments of the posterior inferior cerebellar artery. Left Vertebral Artery: Normal V4 segment. Extradural origin of the posterior communicating artery. Otherwise, normal opacification of the proximal segments of the PICA. Basilar Artery: Normal without focal stenosis or occlusion. Normal appearance of the proximal superior cerebellar arteries. Right Posterior Cerebral Artery: The P1 segment is mildly diminutive. origin of the MICROSOFT EXCHANGE ARCHITECT with robust opacification of the posterior communicating artery. Normal opacification of the distal MICROSOFT EXCHANGE ARCHITECT segments. Left Posterior Cerebral Artery: The P1 segment is diminutive. origin of the MICROSOFT EXCHANGE ARCHITECT with robust opacification of the posterior communicating artery. Normal opacification of the distal MICROSOFT EXCHANGE ARCHITECT segments. Normal opacification of the superior sagittal, straight, transverse, and sigmoid sinuses. CT/CT head/brain wo IV con IMPRESSION: 1. No evidence of acute intracranial hemorrhage or edematous territorial infarction. 2. Chronic encephalomalacia of the right cerebellar hemisphere. Chronic lacunar infarcts of the deep nuclei and cerebellum. Mild underlying microangiopathy. 3. CTA of the head and neck without proximal occlusion or flow-limiting stenosis.
--- NOTE | ~2024-01-11 | CT_ITS ---
EXAMINATION: CT HEAD WITHOUT CONTRAST CT ANGIOGRAM HEAD CT ANGIOGRAM NECK CLINICAL INFORMATION: Transient ischemic attack. Double vision. COMPARISON: Brain MRI from 02/10/2023. CTA head and neck from 02/09/2023. TECHNIQUE: Initial noncontrast honing job setter imaging of the head and neck was performed. Noncontrast head CT was also performed. Test bolus sequences followed by intravenous administration 70 mL of Omnipaque 350. Helical imaging was performed in the axial plane from the aortic arch to the skull vertex. Delayed postcontrast imaging of the head was also performed. The data was processed at the instructional technologist's workstation for generation of MIP sequences. Angled MIPs and volume rendered reformatted images were also generated at an offline 3D workstation. Stenoses are assessed in accordance with NASCET criteria unless otherwise indicated. This CT examination was performed using dose optimization techniques as appropriate, variously including the following: *Automated exposure control. *Adjustment of mA and/or kV according to patient size (this includes techniques or standardized protocols for targeted exams where dose is matched to indication/reason for exam; i.e. extremities or head). *Use of iterative reconstruction technique. DLP: 1994 mGy-cm FINDINGS: CT Head: There is chronic encephalomalacia within the right cerebellar hemisphere with associated volume loss. Chronic lacunar infarcts of the bilateral deep nuclei and cerebellum. No additional loss of estrada-white matter differentiation. No evidence of acute intracranial hemorrhage. A few foci of hypoattenuation in the periventricular and deep white matter are consistent with mild microangiopathy. The ventricles are normal in morphology and size. No evidence for obstructive hydrocephalus. No abnormal mass effect or midline shift. No extra-axial fluid collections. No pathologic intra-axial enhancement. No acute soft tissue or osseous abnormalities. The mastoid air cells and visualized paranasal sinuses are clear. CT Neck: The thyroid gland and remaining cervical soft tissues are within normal limits. Straightening of the normal cervical lordosis. Moderate degenerative disc disease from C5-C7. Facet and uncovertebral joint arthropathy leads to osseous encroachment on the neural foramina from C5-C7. CT Upper Chest: Changes of prior median sternotomy. The visualized lung apices and upper mediastinum are within normal limits. Neck CTA: Aortic Arch: Normal contour and caliber with mild calcific atherosclerotic disease. Two vessel branching pattern of the arch with left common carotid artery arising from the brachiocephalic trunk. Great Vessel Origins: No significant stenosis of the branch origins. Right Common Carotid Artery: No focal stenosis or occlusion. Cervical Right Internal Carotid Artery: Mild calcific atherosclerotic disease of the carotid bulb and proximal internal carotid artery without flow-limiting stenosis. Left Common Carotid Artery: No focal stenosis or occlusion. Cervical Left Internal Carotid Artery: Mild calcific atherosclerotic disease of the carotid bulb and proximal internal carotid artery without flow-limiting stenosis. Cervical Right Vertebral Artery: Co-dominant. No focal stenosis or occlusion. Cervical Left Vertebral Artery: Co-dominant. No focal stenosis or occlusion. Brain CTA: Intracranial Internal Carotid Arteries: No focal stenosis or occlusion. Right Anterior Cerebral Artery: Normal A1 segment. Normal opacification of the distal RINA segments. Left Anterior Cerebral Artery: Normal A1 segment. Normal opacification of the distal RINA segments. Anterior Communicating Artery: Normal. Right Middle Cerebral Artery: Normal M1 segment of the MCA without focal stenosis or occlusion. Normal arborization of the distal segments. Left Middle Cerebral Artery: Normal M1 segment of the MCA without focal stenosis or occlusion. Normal arborization of the distal segments. Right Vertebral Artery: Normal V4 segment. Normal opacification of the proximal segments of the posterior inferior cerebellar artery. Left Vertebral Artery: Normal V4 segment. Extradural origin of the posterior communicating artery. Otherwise, normal opacification of the proximal segments of the PICA. Basilar Artery: Normal without focal stenosis or occlusion. Normal appearance of the proximal superior cerebellar arteries. Right Posterior Cerebral Artery: The P1 segment is mildly diminutive. origin of the AUTOMOTIVE SERVICE ADVISOR with robust opacification of the posterior communicating artery. Normal opacification of the distal AUTOMOTIVE SERVICE ADVISOR segments. Left Posterior Cerebral Artery: The P1 segment is diminutive. origin of the AUTOMOTIVE SERVICE ADVISOR with robust opacification of the posterior communicating artery. Normal opacification of the distal AUTOMOTIVE SERVICE ADVISOR segments. Normal opacification of the superior sagittal, straight, transverse, and sigmoid sinuses. CT/CT angio head neck IMPRESSION: 1. No evidence of acute intracranial hemorrhage or edematous territorial infarction. 2. Chronic encephalomalacia of the right cerebellar hemisphere. Chronic lacunar infarcts of the deep nuclei and cerebellum. Mild underlying microangiopathy. 3. CTA of the head and neck without proximal occlusion or flow-limiting stenosis.
--- NOTE | ~2024-01-11 | XR_ITS ---
EXAMINATION: XR CHEST CLINICAL INFORMATION: Shortness of breath. COMPARISON: Chest radiograph dated 11/22/2022. TECHNIQUE: Frontal view of the chest was obtained. FINDINGS: There are intact sternotomy sutures. There is a prosthetic heart valve. Heart size is normal. The lungs are clear. There is no pleural effusion or pneumothorax. There is no acute osseous abnormality. XR/XR chest 1V IMPRESSION: No acute cardiopulmonary disease. Stable appearance of the heart and lungs.
--- NOTE | 2024-01-11 11:46 | ECG_ITS ---
Test Reason : DOUBLE VISION Blood Pressure : / mmHG Vent. Rate : 079 BPM Atrial Rate : 079 BPM P-R Int : 144 ms QRS Dur : 080 ms QT Int : 398 ms P-R-T Axes : 090 063 043 degrees QTc Int : 456 ms Normal sinus rhythm Minimal voltage criteria for LVH, may be normal variant ( Sokolow-Medrano ) Borderline ECG When compared with ECG of 09-FEB-2023 12:43, Nonspecific T wave abnormality no longer evident in Inferior leads Nonspecific T wave abnormality no longer evident in Lateral leads Referred By: Myra Novoa Electronically Signed By:BILL HUMPHREY
--- NOTE | 2024-01-11 11:50 | ED_ITS ---
HPI - General Adult General Chief complaint: General Medical Stated complaint: Stroke? 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 Related Data Home Medications ?Medication ?Instructions ?Recorded ?Confirmed metoprolol succinate 50 mg 50 mg PO DAILY 10/14/20 02/09/23 tablet,extended release 24 hr nilotinib 150 mg capsule 150 mg PO BID 10/14/20 02/10/23 polyvinyl alcohol 1.4 % eye drops 1 drp ophthalmic (eye) 5XD PRN Dry 02/09/23 02/09/23 (Artificial Tears (polyvinyl Eyes alcohol)) warfarin 5 mg tablet 10 mg PO DAILY@1800 02/09/23 02/09/23 Previous Rx's ?Medication ?Instructions ?Recorded warfarin 5 mg tablet 5 mg PO DAILY #90 tabs 06/17/20 aspirin 81 mg tablet,delayed 81 mg PO DAILY #30 tabs 02/11/23 release atorvastatin 40 mg tablet 40 mg PO DAILY #30 tabs 02/11/23 Allergies Allergy/AdvReac Type Severity Reaction Status Date / Time cephalexin [From KEFLEX] Allergy Severe ANGIOEDEMA Verified 01/11/24 11:48 Penicillins [PCN] Allergy Severe DIFF Verified 01/11/24 11:48 BREATHING pilocarpine [PILOCARPINE] Allergy Severe DIFFICULTY Verified 01/11/24 11:48 BREATHING prochlorperazine Allergy Severe DIFFICULTY Verified 01/11/24 11:48 [From COMPAZINE] BREATHING Review of Systems 2 Review of Systems: All other systems are reviewed and are negative Constitutional: Reports as per HPI and Reports no additional constitutional complaints Eyes: Reports as per HPI and Reports no additional eye complaints Reports system reviewed and no additional complaints, except as documented Cardiovascular: Reports as per HPI and Reports no additional cardiovascular complaints Respiratory: Reports as per HPI and Reports no additional respiratory complaints Gastrointestinal: Reports as per HPI and Reports no additional gastrointestinal complaints Genitourinary: Reports no additional female genitourinary complaints Musculoskeletal: Reports no additional musculoskeletal complaints Skin/Breast: Reports system reviewed and no additional complaints, except as docu Psychiatric: Reports no additional psychiatric complaints Endocrine: Reports no additional endocrine complaints Hematologic/Lymphatic: Reports no additional hematologic/lymphatic complaints Allergic/Immunologic: Reports no additional allergic/immunologic complaints Reports system reviewed and no additional complaints, except as documented and Reports Abnormal speech present [facility] Past Medical History Medical History H/O Sjogren's disease delivery delivered Leukemia Myocardial infarct Stroke Surgical History History of heart surgery Social History Social History Household Members: Children Housing: Apartment Do you presently have visiting nurse or other home services: No Alcohol intake: never Comment: pt refuse camera and bed alarm; uses call light for assistance Patient Tobacco Use Status: Former Tobacco user Quit Date: 3 weeks ago Cigarettes Per Day: 2 Smoked in Last 30 Days: No Use of substances other than those prescribed or required for medical reasons: No Substance Use Type: Heroin Advance Directives: No Advance Directives Information Provided: Yes Do you have a plan to hurt others: No Plan Physical Exam ED Vital Signs: Vital Signs - 24 hr 01/11/24 11:44 01/11/24 13:26 01/11/24 14:15 Temperature 98.5 F 98.3 F Pulse Rate 82 77 113 H Respiratory Rate 16 20 16 Blood Pressure 151/71 H 187/91 H Pulse Oximetry 99 99 100 Oxygen Delivery Method Room Air Room Air Room Air 01/11/24 14:40 Temperature Pulse Rate 90 Respiratory Rate 16 Blood Pressure 169/79 H Pulse Oximetry 100 Oxygen Delivery Method Room Air BMI result Body Mass Index 26.9 Vital signs have been reviewed and appear to be correct. Blood pressure elevated. Heart rate normal. Respiratory rate normal. Temperature normal. Oxygen saturation normal. Appearance: Alert. Oriented X3. No acute distress. Head: Normal external exam. Normocephalic. Atraumatic. No [place] signs noted. No raccoon eyes noted Eyes: PERRLA. EOMI. Conjunctiva and sclera normal. Eyelids normal. ENT: TM's Normal. Pharynx normal. Uvula midline. Moist mucous membranes. No trismus noted. No drooling noted. No muffled voice noted. Neck: Normal inspection. Neck supple. FROM. No adenopathy. Thyroid Normal. No meningeal signs. No neck mass noted. CVS: Normal heart rate and rhythm. Heart sound normal. No murmurs noted. Pulses normal throughout. Respiratory: No respiratory distress. Painless inspiration. Breath sounds normal. No wheezes/rales/rhonchi noted. Chest nontender. No accessory muscle usage noted or decreased air movement noted. Abdomen: Soft and nontender. Bowel sounds normal in all 4 quadrants. No distention noted. No organomegaly noted. No visible injury noted. Back: No CVA tenderness. Full range of motion noted. Skin: Skin warm and dry. Normal skin color. Normal skin turgor. No rashes/lesions/lacerations noted. Extremities: No lower extremity edema. Extremities exhibit normal range of motion. Extremities nontender. Neuro: Oriented X 3. Cranial nerve exam: II-XII are grossly intact No motor deficit. No sensory deficit. Reflexes normal. NIH Stroke Scale Time: 11:54 Level of Consciousness: Alert Level of Consciousness Questions: Answers both questions correctly Level of Consciousness Commands: Performs both tasks correctly Best Gaze: Normal Visual: No visual loss Facial Palsy: Normal Motor Arm (Right): No drift Motor Arm (Left): No drift Motor Leg (Right): No drift Motor Leg (Left): No drift Limb Ataxia: Absent Sensory: Normal Best Language: No aphasia Dysarthia: Normal Extinction and Inattention: No abnormality Score: 0 Course Reevaluation(s) Reevaluation #1: Was called to the CT room patient developed numbness and itching under her tongue, no difficulty breathing, able to swallow her own saliva, no slurred speech, no stridor, no wheezing, no skin rash or hives. Reviewing patient's history had CT angio of the head and neck in the past with no reported adverse effects. Patient will be monitored, will administer Solu-Medrol and Benadryl. Time: 14:03 Reevaluation #2: CT angio of head and neck was completed patient returned to the room start acting bizarre, patient was unresponsive, patent airway, no stridor, O2 sat of 100%, no seizure activity that was appreciated, no tongue bite, patient is incoherent and not following simple commands patient started to scream. patient was given 1 mg of Ativan IV. Patient was closely monitored slowly start to become responsive and coherent follow simple commands of raising both hands and answer questions. INR is subtherapeutic since patient at risk for thromboembolic showering will start the patient on Lovenox. Time: 14:47 Reevaluation #3: Patient is almost back to her baseline, repeat neuro exam shows no neurological deficits, patient stated that she had similar reaction when she had CT angio in the past. Time: 15:08 Medications Administered Discontinued Medications Generic Name Dose Route Start Last Admin Trade Name Freq PRN Reason Stop Dose Admin Diphenhydramine HCl 50 mg 01/11/24 14:02 01/11/24 14:08 Diphenhydramine Hcl 50 Mg/Ml Vial IVPUSH 01/11/24 14:03 50 mg ONCE ONE Administration Sodium Chloride 1,000 mls @ 999 mls/hr 01/11/24 11:46 01/11/24 12:02 Ns IV 01/11/24 12:46 999 mls/hr .Q1H1M ONE Administration Iohexol 70 ml 01/11/24 14:06 01/11/24 14:06 Iohexol 350 Mg/Ml 100 Ml Infus..Btl IV 01/11/24 14:07 70 ml ONCE ONE Administration Lorazepam 1 mg 01/11/24 14:21 01/11/24 14:26 Lorazepam 2 Mg/Ml Vial IVPUSH 01/11/24 14:22 1 mg ONCE ONE Administration Methylprednisolone Sodium Succinate 125 mg 01/11/24 14:02 01/11/24 14:08 Methylprednisolone Sod Succ 125 Mg/2 Ml Vial IVPUSH 01/11/24 14:03 125 mg ONCE ONE Administration Medical Decision Making Differential Diagnosis Differential Diagnoses: The differential diagnosis associated with the presentation includes (TIA, ischemic CVA, intracranial bleed, pneumonia, pneumothorax, pleural effusion, electrolyte derangement, severe anemia, subtherapeutic INR,) Admission/Observation Consideration of admission/observation: Escalation of care including admission/observation considered Consult Healthcare Provider Management of the patient was discussed with: Hospitalist (Dr. Martinez) Lab Data MDM Lab Attestation statement: I reviewed the patient's lab results. 01/11/24 12:00 01/11/24 12:00 Labs: Lab Results 01/11/24 01/11/24 01/11/24 Range/Units 12:00 12:01 15:02 WBC 9.6 (4.8-10.8) X10*3/uL RBC 4.27 (4.20-5.50) X10*6/uL Hgb 12.3 (12.0-16.0) g/dl Hct 36.4 L (37.0-47.0) % MCV 85.2 (80.0-98.0) fL MCH 28.8 (27.0-33.0) pg MCHC 33.8 (31.0-35.0) g/dl RDW 15.2 (11.0-16.0) % Plt Count 327 D (160-400) X10*3/uL MPV 9.2 L (9.4-12.3) fL Immature Gran % (Auto) 0.5 H (0.0-0.4) % Neut % (Auto) 72.8 (45-73) % Lymph % (Auto) 18.3 L (20-40) % [place] % (Auto) 6.4 (2-11) % Eos % (Auto) 1.9 (0-4) % Baso % (Auto) 0.1 (0-2) % Lymph # (Auto) 1.8 (1.2-4.9) X10*3/uL [place] # (Auto) 0.6 (0.1-1.2) X10*3/uL Eos # (Auto) 0.2 (0.0-0.4) X10*3/uL Baso # (Auto) 0.0 (0.0-0.2) X10*3/uL Abs Immat Gran (auto) 0.05 H (0.00-0.03) X10*3/uL Absolute Neuts (auto) 7.0 (2.0-8.3) x10*3/uL Absolute Nucleated RBC 0.000 (0.0-0.012) X10*3/uL Nucleated RBC % (auto) 0.0 (0.0-0.2) /100WBC PT 12.9 (11.1-13.3) SEC INR 1.1 (0.9-1.1) APTT (26.0-36.8) SEC Sodium 140 (135-145) mmol/L Potassium 4.1 (3.3-5.1) mmol/L Chloride 107 (96-108) mmol/L Carbon Dioxide 24 (22-29) mmol/L Anion Gap 13 (12-20) BUN 13 (9-16) mg/dL Creatinine 0.85 (0.5-1.4) mg/dL Estim Creat Clear Calc 69.6 Estimated GFR > 60 Random Glucose 98 (60-115) mg/dL Calcium 9.7 D (8.4-10.2) mg/dL Total Bilirubin 0.8 (0.0-1.0) mg/dL Direct Bilirubin 0.2 (0.0-0.5) mg/dL AST 22 (5-31) U/L ALT 49 H (0-31) U/L Alkaline Phosphatase 265 H (39-117) U/L Troponin I High Sens < 2.7 D (<3.5-17.0) ng/L B-Natriuretic Peptide 40 (<100) pg/mL Total Protein 8.8 H (6.5-8.0) g/dL Albumin 4.4 (3.5-5.0) g/dL Lipase 26 (8-78) U/L Urine Color Yellow Urine Appearance Clear Urine pH 7.0 (5.0-9.0) Ur Specific [place] >= 1.030 H (1.005-1.025) Urine Protein Negative (Neg-Trace) mg/dL Urine Glucose (UA) Negative (Negative) mg/dL Urine Ketones Negative (Negative) mg/dL Urine Blood Negative (Negative) Urine Nitrite Negative (Negative) Ur Leukocyte Esterase Small (1+) H (Negative) Urine RBC 0-2 (0-2) /HPF Urine WBC 6-10 H (0-5) /HPF Ur Squamous Epith Cells 11-20 (0-2) /HPF Urine Bacteria 1+ (None Seen) Hyaline Casts 0-2 (0-2) /LPF Influenza Type A (PCR) NEGATIVE (Negative) Influenza Type B (PCR) NEGATIVE (Negative) RSV RNA Qual (PCR) NEGATIVE (Negative) SARS-CoV-2 RNA (RT-PCR) NEGATIVE (Negative) 01/11/24 Range/Units 15:24 WBC (4.8-10.8) X10*3/uL RBC (4.20-5.50) X10*6/uL Hgb (12.0-16.0) g/dl Hct (37.0-47.0) % MCV (80.0-98.0) fL MCH (27.0-33.0) pg MCHC (31.0-35.0) g/dl RDW (11.0-16.0) % Plt Count (160-400) X10*3/uL MPV (9.4-12.3) fL Immature Gran % (Auto) (0.0-0.4) % Neut % (Auto) (45-73) % Lymph % (Auto) (20-40) % [place] % (Auto) (2-11) % Eos % (Auto) (0-4) % Baso % (Auto) (0-2) % Lymph # (Auto) (1.2-4.9) X10*3/uL [place] # (Auto) (0.1-1.2) X10*3/uL Eos # (Auto) (0.0-0.4) X10*3/uL Baso # (Auto) (0.0-0.2) X10*3/uL Abs Immat Gran (auto) (0.00-0.03) X10*3/uL Absolute Neuts (auto) (2.0-8.3) x10*3/uL Absolute Nucleated RBC (0.0-0.012) X10*3/uL Nucleated RBC % (auto) (0.0-0.2) /100WBC PT 13.2 (11.1-13.3) SEC INR 1.1 (0.9-1.1) APTT 36.6 (26.0-36.8) SEC Sodium (135-145) mmol/L Potassium (3.3-5.1) mmol/L Chloride (96-108) mmol/L Carbon Dioxide (22-29) mmol/L Anion Gap (12-20) BUN (9-16) mg/dL Creatinine (0.5-1.4) mg/dL Estim Creat Clear Calc Estimated GFR Random Glucose (60-115) mg/dL Calcium (8.4-10.2) mg/dL Total Bilirubin (0.0-1.0) mg/dL Direct Bilirubin (0.0-0.5) mg/dL AST (5-31) U/L ALT (0-31) U/L Alkaline Phosphatase (39-117) U/L Troponin I High Sens (<3.5-17.0) ng/L B-Natriuretic Peptide (<100) pg/mL Total Protein (6.5-8.0) g/dL Albumin (3.5-5.0) g/dL Lipase (8-78) U/L Urine Color Urine Appearance Urine pH (5.0-9.0) Ur Specific [place] (1.005-1.025) Urine Protein (Neg-Trace) mg/dL Urine Glucose (UA) (Negative) mg/dL Urine Ketones (Negative) mg/dL Urine Blood (Negative) Urine Nitrite (Negative) Ur Leukocyte Esterase (Negative) Urine RBC (0-2) /HPF Urine WBC (0-5) /HPF Ur Squamous Epith Cells (0-2) /HPF Urine Bacteria (None Seen) Hyaline Casts (0-2) /LPF Influenza Type A (PCR) (Negative) Influenza Type B (PCR) (Negative) RSV RNA Qual (PCR) (Negative) SARS-CoV-2 RNA (RT-PCR) (Negative) Independent Interpretation I performed an independent interpretation of an: Plain X-Ray (No acute intrathoracic pathology.) and CT Scan (Head/CT angio of head and neck:1. No evidence of acute intracranial hemorrhage or edematous territorial infarction. 2. Chronic encephalomalacia of the right cerebellar hemisphere. Chronic lacunar infarcts of the deep nuclei and cerebellum. Mild underlying microangiopathy. 3. CTA of the head and n) Radiology Impression Discussion of test interpretation with radiology: I have reviewed the radiologist's reading. Discharge Plan Discharge Clinical Impression: Brain TIA, Subtherapeutic international normalized ratio (INR), Bronchitis Patient Disposition: Admitted As Inpatient Print Language: Bhutanese
[2024-01-11] MEDS: 0.9 % Sodium Chloride 1,000 ML 999 ML IV (12:02)
[2024-01-11 12:07] LABS: MANUAL DIFF FLAG NO
[2024-01-11 12:12] LABS: Basophils Percent Auto 0.1 % (0-2); Eosinophils Absolute Auto 0.2 X10*3/uL (0.0-0.4); Eosinophils Percent Auto 1.9 % (0-4); Hematocrit 36.4 % (37.0-47.0); Hemoglobin 12.3 g/dl (12.0-16.0); Imm Gran Abs Auto 0.05 X10*3/uL (0.00-0.03); Imm Gran Pct Auto 0.5 % (0.0-0.4); Lymphocytes Absolute Auto 1.8 X10*3/uL (1.2-4.9); Lymphocytes Percent Auto 18.3 % (20-40); Mean Corpuscular HGB Conc 33.8 g/dl (31.0-35.0); Mean Corpuscular Hemoglobin 28.8 pg (27.0-33.0); Mean Corpuscular Volume 85.2 fL (80.0-98.0); Mean Platelet Volume 9.2 fL (9.4-12.3); Monocytes Absolute Auto 0.6 X10*3/uL (0.1-1.2); Monocytes Percent Auto 6.4 % (2-11); Neutrophils Percent Auto 72.8 % (45-73); Platelet Count 327 X10*3/uL (160-400); Red Blood Count 4.27 X10*6/uL (4.20-5.50); Red Cell Distribution Width 15.2 % (11.0-16.0); White Blood Count 9.6 X10*3/uL (4.8-10.8)
--- NOTE | 2024-01-11 12:14 | PC.NURSE ---
This RN walked in to triage patient, patient quite confronatational, accusing this RN of being rude during standard triage assessment, this RN apologized for apparent rudeness, clarified that all questions are a part of triage and if patient does not want to answer then she has the right to refused. IV line placed, labs drawn, fluids hung as ordered, patient informed of additional tests ordered, all questions answered, patient verbalized understanding.
[2024-01-11 12:21] LABS: INTERNATIONAL NORM RATIO 1.1 (0.9-1.1); Prothrombin Time 12.9 SEC (11.1-13.3)
[2024-01-11 12:26] LABS: Alanine Aminotransferase 49 U/L (0-31); Albumin Level 4.4 g/dL (3.5-5.0); Alkaline Phosphatase 265 U/L (39-117); Anion Gap 13 (12-20); Aspartate Amino Transferase 22 U/L (5-31); Bilirubin Direct 0.2 mg/dL (0.0-0.5); Bilirubin Total 0.8 mg/dL (0.0-1.0); Blood Urea Nitrogen 13 mg/dL (9-16); Calcium 9.7 mg/dL (8.4-10.2); Carbon Dioxide 24 mmol/L (22-29); Chloride 107 mmol/L (96-108); Creatinine Clr Calc Pharmacy 69.6; Estimated Glomerular Filt Rate > 60; Glucose Random 98 mg/dL (60-115); Lipase 26 U/L (8-78); Potassium 4.1 mmol/L (3.3-5.1); Sodium 140 mmol/L (135-145); Total Protein 8.8 g/dL (6.5-8.0)
[2024-01-11 12:31] LABS: B Type Natriuretic Peptide 40 pg/mL (<100)
[2024-01-11 12:38] LABS: Troponin-I High Sensitivity < 2.7 ng/L (<3.5-17.0)
[2024-01-11 12:55] LABS: Influenza A PCR NEGATIVE (Negative); Influenza B PCR NEGATIVE (Negative); Resp Syncy Virus RNA Qual PCR NEGATIVE (Negative); SARS COV2 PCR INHOUSE NEGATIVE (Negative)
[2024-01-11] MEDS: iohexoL 350 MG/ML 100 ML INFUS..BTL 70 ML IV (14:06)
[2024-01-11] MEDS: methylPREDNISolone Sod Succ 125 MG/2 ML VIAL IVPUSH (14:08)
[2024-01-11] MEDS: diphenhydrAMINE HCL 50 MG/ML VIAL IVPUSH (14:08)
--- NOTE | 2024-01-11 14:21 | PC.NURSE ---
Patient returned from CTA with CT staff, when asked how it went patient stated okay , informed patient this RN had 2 medications to give her, benadryl and steroids, patient able to raise arm in order for bracelet to be scanned. medications given per nov. When patient asked how she was feeling, patient suddenly unable to respond, patient not able to follow commands, patient withdrew to sternal rub. This RN left the room to get provider, when returned to room, patient found to be screaming in bed, eyes open, unable to follow commands. Provider ordered 1mg ativan IV, given. Patient placed on tele monitor, HR and o2 WNL, patient hypertensive. Patient to be admitted to hospital, son at bedside. Will continue to monitor.
[2024-01-11] MEDS: LORazepam 2 MG/ML VIAL 1 MG IVPUSH (14:26)
--- NOTE | 2024-01-11 14:39 | PC.NURSE ---
Went into room to reevaluate patient, patient more responsive, able to move arms and follow commands, not speaking at this time. Son at bedside informed provider and this RN patient has not been on anticoagulation d/t insurance issues until recently.
[2024-01-11 15:19] LABS: Appearance Urine Clear; Color Urine Yellow; Glucose Urine UA Negative (Negative); Leukocyte Esterase Urine Small (1+) (Negative); Nitrite Urine Negative (Negative); Specific Gravity - Urine >= 1.030 (1.005-1.025); UMIC TRIGGER UACC YES; Urine Blood Negative (Negative); Urine Ketones Negative (Negative); Urine Protein Negative (Neg-Trace)
[2024-01-11 15:28] LABS: Bacteria Urine 1+ (None Seen); Hyaline Casts Urine 0-2 /LPF (0-2); RBC Urine 0-2 /HPF (0-2); UACC Culture Trigger YES
--- NOTE | 2024-01-11 15:39 | MHC.STROKE ---
This manual writer met with patient to provide stroke/tia education. Pt awake, alert, slow to respond but engaging with this manual writer. Son at bedside. Outpatient response was called for patient when she was c/o double vision, cough, and not feeling well . Pt was brought to ED and evaluated by Dr. Novoa. CTA was ordered. During CT scan, patient c/o tongue itching after contrast. Pt does not provide much history. Reports similiar symptoms a long time ago . Pt very vague with her history. Son states that she was supposed to be taking coumadin but only restarted it within the past week. There was no explanation as to why she had stopped it. Pt denies smoking. Dr Hooks came to bedside for admission. Explained to patient and son that I will assist in her care as needed. Discussed care plan. Pt and son agreeable to plan.
[2024-01-11 15:42] LABS: INTERNATIONAL NORM RATIO 1.1 (0.9-1.1); Prothrombin Time 13.2 SEC (11.1-13.3)
[2024-01-11 15:45] LABS: Partial Thromboplastin Time 36.6 SEC (26.0-36.8)
--- NOTE | 2024-01-11 15:56 | PM.IMHP ---
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 She presents with acute sudden onset of double vision that happened at 10:00am and has since resolved. Per the ED physician, the patient had not been taking her warfarin due to an insurance issue. The patient denies this is the case. She thinks she missed 1 day of warfarin 3 days ago because she was sick with a cough and expectorated a small amount of blood. She says she was seen in the ED 3 days ago but per our records, it was actually yesterday. Her history is somewhat vague and she states she feels odd due to a reaction to the IV contrast she was given for her CT angio of the head. She states this has happened to her in the past with IV contrast. The ED physician gave her Solu-Medrol and Benadryl as she reported numbness and itching under her tongue, which has since resolved. She was given 1 mg of Ativan after she became briefly unresponsive, which has since resolved. Prior to IV contrast, her only complaint was of the double vision and the cough. No fever, dyspnea, or chest pain. No facial droop, speech difficulty, arm weakness, or leg weakness. In the ED, her INR was 1.1. Neueroimaging showed no acute ICH or CVA. There was no proximsal cerebrovascular occlusion or stenosis. There is encephalomalacia of the R cerebellar hemisphere, and chronic lacunar infarcts of the deep nuclei and cerebellum. She was given 5 mg of warfarin and 70 mg of SQ enoxaparin. Review of Systems Review of Systems: Yes all other systems are reviewed and are negative [facility] Medical History H/O Sjogren's disease delivery delivered Leukemia Myocardial infarct Stroke Surgical History History of heart surgery Social History Household Members: Children Housing: Apartment Do you presently have visiting nurse or other home services: No Alcohol intake: never Comment: pt refuse camera and bed alarm; uses call light for assistance Patient Tobacco Use Status: Former Tobacco user Quit Date: 3 weeks ago Cigarettes Per Day: 2 Substance Use Type: Heroin Meds Allergies Allergy/AdvReac Type Severity Reaction Status Date / Time cephalexin [From KEFLEX] Allergy Severe ANGIOEDEMA Verified 01/11/24 11:48 Penicillins [PCN] Allergy Severe DIFF Verified 01/11/24 11:48 BREATHING pilocarpine [PILOCARPINE] Allergy Severe DIFFICULTY Verified 01/11/24 11:48 BREATHING prochlorperazine Allergy Severe DIFFICULTY Verified 01/11/24 11:48 [From COMPAZINE] BREATHING Active Medications: Current Medications Acetaminophen (Acetaminophen 325 Mg Tablet) 650 mg PO Q6H PRN PRN Reason: Pain, Mild (Pain Scale 1-3) Enoxaparin Sodium (Enoxaparin Sodium 80 Mg/0.8 Ml Syringe) 70 mg SUBCUT Q12H [facility] Ondansetron HCl (Ondansetron Hcl 4 Mg/2 Ml Vial) 4 mg IVPUSH Q8H PRN PRN Reason: Nausea and Vomiting Sodium Chloride (0.9 % Sodium Chloride Flush 3 Ml Syringe) 3 ml IVFLUSH QSHIFT [facility] Warfarin Sodium (Warfarin Sodium 5 Mg Tablet) 5 mg PO ONCE@1800 ONE Stop: 01/11/24 18:01 Home Medications ?Medication ?Instructions ?Recorded ?Confirmed ?Last Taken ?Type metoprolol succinate 50 mg 50 mg PO DAILY 10/14/20 01/11/24 01/10/24 History tablet,extended release 24 hr nilotinib 150 mg capsule 150 mg PO BID 10/14/20 01/11/24 01/10/24 History polyvinyl alcohol 1.4 % eye drops 1 drp ophthalmic (eye) 5XD PRN Dry 02/09/23 01/11/24 Unknown History (Artificial Tears (polyvinyl Eyes alcohol)) Physical Exam Vital Signs and Narrative: Vital Signs: Last Vital Signs Temp 98.3 F 01/11/24 13:26 Pulse 90 01/11/24 14:40 Resp 16 01/11/24 14:40 BP 169/79 H 01/11/24 14:40 Pulse Ox 100 01/11/24 14:40 O2 Del Method Room Air 01/11/24 14:40 BMI result Body Mass Index 26.9 Gen: in no acute distress HEENT: sclera anicteric, moist mucus membranes Neck: supple Lungs: clear to auscultation bilaterally Heart: regular rate and rhythm, mechanical S1, no murmurs noted Abd: soft, non-tender, non-distended Ext: no edema Skin: warm/well-perfused Neuro: alert and oriented x3, no visual deficit, no facial droop, no pronator drift, no focal weakness Psych: appropriate affect Results Labs 01/11/24 16:46 01/11/24 12:00 Labs: Laboratory Results - last 24 hr 01/11/24 01/11/24 01/11/24 12:00 12:01 15:02 MCV 85.2 MCH 28.8 MCHC 33.8 RDW 15.2 Plt Count 327 D MPV 9.2 L Immature Gran % (Auto) 0.5 H Neut % (Auto) 72.8 Lymph % (Auto) 18.3 L [place] % (Auto) 6.4 Eos % (Auto) 1.9 Baso % (Auto) 0.1 Lymph # (Auto) 1.8 [place] # (Auto) 0.6 Eos # (Auto) 0.2 Baso # (Auto) 0.0 Abs Immat Gran (auto) 0.05 H Absolute Neuts (auto) 7.0 Absolute Nucleated RBC 0.000 Nucleated RBC % (auto) 0.0 PT 12.9 INR 1.1 APTT Anion Gap 13 Estim Creat Clear Calc 69.6 Estimated GFR > 60 Random Glucose 98 Calcium 9.7 D Total Bilirubin 0.8 Direct Bilirubin 0.2 AST 22 ALT 49 H Alkaline Phosphatase 265 H Troponin I High Sens < 2.7 D B-Natriuretic Peptide 40 Total Protein 8.8 H Albumin 4.4 Lipase 26 Urine Color Yellow Urine Appearance Clear Urine pH 7.0 Ur Specific [place] >= 1.030 H Urine Protein Negative Urine Glucose (UA) Negative Urine Ketones Negative Urine Blood Negative Urine Nitrite Negative Ur Leukocyte Esterase Small (1+) H Urine RBC 0-2 Urine WBC 6-10 H Ur Squamous Epith Cells 11-20 Urine Bacteria 1+ Hyaline Casts 0-2 Influenza Type A (PCR) NEGATIVE Influenza Type B (PCR) NEGATIVE RSV RNA Qual (PCR) NEGATIVE SARS-CoV-2 RNA (RT-PCR) NEGATIVE 01/11/24 15:24 MCV MCH MCHC RDW Plt Count MPV Immature Gran % (Auto) Neut % (Auto) Lymph % (Auto) [place] % (Auto) Eos % (Auto) Baso % (Auto) Lymph # (Auto) [place] # (Auto) Eos # (Auto) Baso # (Auto) Abs Immat Gran (auto) Absolute Neuts (auto) Absolute Nucleated RBC Nucleated RBC % (auto) PT 13.2 INR 1.1 APTT 36.6 Anion Gap Estim Creat Clear Calc Estimated GFR Random Glucose Calcium Total Bilirubin Direct Bilirubin AST ALT Alkaline Phosphatase Troponin I High Sens B-Natriuretic Peptide Total Protein Albumin Lipase Urine Color Urine Appearance Urine pH Ur Specific [place] Urine Protein Urine Glucose (UA) Urine Ketones Urine Blood Urine Nitrite Ur Leukocyte Esterase Urine RBC Urine WBC Ur Squamous Epith Cells Urine Bacteria Hyaline Casts Influenza Type A (PCR) Influenza Type B (PCR) RSV RNA Qual (PCR) SARS-CoV-2 RNA (RT-PCR) Imaging Radiologist's Impressions: Impressions Chest X-Ray 01/11/24 12:42 IMPRESSION: No acute cardiopulmonary disease. Stable appearance of the heart and lungs. Head CT 01/11/24 13:17 IMPRESSION: 1. No evidence of acute intracranial hemorrhage or edematous territorial infarction. 2. Chronic encephalomalacia of the right cerebellar hemisphere. Chronic lacunar infarcts of the deep nuclei and cerebellum. Mild underlying microangiopathy. 3. CTA of the head and neck without proximal occlusion or flow-limiting stenosis. Head/Neck CTA 01/11/24 14:26 IMPRESSION: 1. No evidence of acute intracranial hemorrhage or edematous territorial infarction. 2. Chronic encephalomalacia of the right cerebellar hemisphere. Chronic lacunar infarcts of the deep nuclei and cerebellum. Mild underlying microangiopathy. 3. CTA of the head and neck without proximal occlusion or flow-limiting stenosis. 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 Subtherapeutic INR and possible IV contrast reaction. transient double vision concerning for TIA - Admit to telemetry on observation status. High risk for CVA/TIA given subtherapeutic INR with mechanical mitral valve. Neuro and PT/OT consults. Bridging anticoagulation as below. minor hemoptysis - Monitor; give cough suppressant. No signs of PNA. Flu/Covid/RSV negative. contrast reaction - Likely vasovagal-type but also had some allergic features. Supportive care; resolving. subtherapeutic INR - Resume warfarin and bridge with enoxaparin 1 mg/kg until INR 2.5-3.5. - Pt states she does not currently have a PCP or a Coumadin clinic and has been depending on various EDs to get her ED checked. She states she only missed 1 dose of warfarin and that 1 week ago in the [facility] ED, her INR was OK. I find this hard to believe since her INR is only 1.1 today. Needs education, close outpt follow-up, possible referral to our Coumadin clinic vs. VNA services. CAD - ASA, metoprolol succinate CML - nilotinib VTE prophylaxis - warfarin/enoxaparin dispo - likely home tomorrow code status - full I anticipate that the patient will stay at least 2 midnights as an inpatient in the hospital due to the above reasons. It is neither reasonable nor safe to care for them in a less acute setting. Quality Stroke Does the patient have a stroke diagnosis?: Yes Reason for No Anti-thrombotic by Day Two: N/A - Med Ordered VTE Prior VTE?: No VTE Risk Level:: Medical - moderate - high VTE Device Contraindication: N/A - Device Ordered VTE Drug Contraindication: N/A - Med Ordered
--- NOTE | 2024-01-11 16:06 | PHA.MEDREC ---
Pharmacy Consult ? Medication Reconciliation Pharmacy has completed the medication reconciliation. Patient reported medications. Reports that her current warfarin dose is 1 tab daily. Informed atient that Nilotinib will need to be broguht in from home. Amada Ruggiero, PharmD
[2024-01-11] MEDS: Enoxaparin Sodium 80 MG/0.8 ML SYRINGE 70 MG SUBCUT (16:13)
[2024-01-11] MEDS: 0.9 % Sodium Chloride Flush 3 ML SYRINGE IVFLUSH (16:15)
--- NOTE | 2024-01-11 16:26 | PC.NURSE ---
Patient now able to respnd to questions appropiately, moving all 4 extremities, able to participate and pass swallow eval. To be admitted to hospital, awaiting bed at this time.
[2024-01-11 16:56] LABS: Hematocrit 36.9 % (37.0-47.0); Mean Corpuscular HGB Conc 32.5 g/dl (31.0-35.0); Mean Corpuscular Hemoglobin 29.1 pg (27.0-33.0); Mean Corpuscular Volume 89.3 fL (80.0-98.0); Mean Platelet Volume 9.3 fL (9.4-12.3); Platelet Count 271 X10*3/uL (160-400); Red Blood Count 4.13 X10*6/uL (4.20-5.50); Red Cell Distribution Width 15.5 % (11.0-16.0)
--- NOTE | 2024-01-11 17:16 | PM.NEUROCN ---
History of Present Illness Data of Consult Service Date: 01/11/24 Primary Care Provider: Unknown Physician HPI This is a 53yo woman with CML, CAD, CVA without residual deficit, mechanical MV for which she takes warfarin. She presents with acute sudden onset of double vision that happened at 10:00am and has since resolved. The patient thinks she missed 1 day of warfarin 3 days ago because she was sick with a cough and expectorated a small amount of blood, her INR was 1.1 Her history is somewhat vague and she states she feels odd due to a reaction to the IV contrast she was given for her CT angio of the head. She states this has happened to her in the past with IV contrast. In No facial droop, speech difficulty, arm weakness, or leg weakness. Last MRI 02/02 shows microvascular changes and multiple old lacunar infarcts, and current CT with old cerebellar and multiple old lacunar infarcts , CTA of head and neck shows no cerebrovascular occlusion or stenosis. Review of Systems Review of Systems: All other systems are reviewed and are negative Constitutional: Reports as per HPI and Reports no additional constitutional complaints Eyes: Reports as per HPI and Reports no additional eye complaints Reports system reviewed and no additional complaints, except as documented Cardiovascular: Reports as per HPI and Reports no additional cardiovascular complaints Respiratory: Reports as per HPI and Reports no additional respiratory complaints Gastrointestinal: Reports as per HPI and Reports no additional gastrointestinal complaints Genitourinary: Reports no additional female genitourinary complaints Musculoskeletal: Reports no additional musculoskeletal complaints Skin/Breast: Reports system reviewed and no additional complaints, except as docu Psychiatric: Reports no additional psychiatric complaints Endocrine: Reports no additional endocrine complaints Hematologic/Lymphatic: Reports no additional hematologic/lymphatic complaints Allergic/Immunologic: Reports no additional allergic/immunologic complaints Reports system reviewed and no additional complaints, except as documented and Reports Abnormal speech present Yes all other systems are reviewed and are negative PMFSH Past Medical History Medical History H/O Sjogren's disease delivery delivered Leukemia Myocardial infarct Stroke Surgical History Surgical History History of heart surgery Social History Social History Household Members: Children Housing: Apartment Do you presently have visiting nurse or other home services: No Alcohol intake: never Comment: pt refuse camera and bed alarm; uses call light for assistance Patient Tobacco Use Status: Former Tobacco user Quit Date: 3 weeks ago Cigarettes Per Day: 2 Smoked in Last 30 Days: No Use of substances other than those prescribed or required for medical reasons: No Substance Use Type: Heroin Advance Directives: No Advance Directives Information Provided: Yes Do you have a plan to hurt others: No Plan Nutrition Risks: No Nutritional Risk Meds Allergies Allergy/AdvReac Type Severity Reaction Status Date / Time cephalexin [From KEFLEX] Allergy Severe ANGIOEDEMA Verified 01/11/24 11:48 Penicillins [PCN] Allergy Severe DIFF Verified 01/11/24 11:48 BREATHING pilocarpine [PILOCARPINE] Allergy Severe DIFFICULTY Verified 01/11/24 11:48 BREATHING prochlorperazine Allergy Severe DIFFICULTY Verified 01/11/24 11:48 [From COMPAZINE] BREATHING Active Medications: Current Medications Acetaminophen (Acetaminophen 325 Mg Tablet) 650 mg PO Q6H PRN PRN Reason: Pain, Mild (Pain Scale 1-3) Aspirin (Aspirin 81 Mg Tab.Chew) 81 mg PO DAILY [facility] Enoxaparin Sodium (Enoxaparin Sodium 80 Mg/0.8 Ml Syringe) 70 mg SUBCUT Q12H [facility] Guaifenesin/Dextromethorphan (Guaifenesin Dm 100/10/5 Ml 5 Ml Syrup) 5 ml PO Q4H PRN PRN Reason: cough Metoprolol Succinate (Metoprolol Succinate Er 50 Mg Tab.Er.24h) 50 mg PO DAILY [facility]; Protocol Ondansetron HCl (Ondansetron Hcl 4 Mg/2 Ml Vial) 4 mg IVPUSH Q8H PRN PRN Reason: Nausea and Vomiting Sodium Chloride (0.9 % Sodium Chloride Flush 3 Ml Syringe) 3 ml IVFLUSH QSHIFT [facility] Last Admin: 01/11/24 16:15 Dose: 3 ml Warfarin Sodium (Warfarin Sodium 5 Mg Tablet) 5 mg PO ONCE@1800 ONE Stop: 01/11/24 18:01 Warfarin Sodium (Warfarin Sodium 5 Mg Tablet) 5 mg PO DAILY@1800 [facility] Home Medications ?Medication ?Instructions ?Recorded ?Confirmed ?Last Taken ?Type metoprolol succinate 50 mg 50 mg PO DAILY 10/14/20 01/11/24 01/10/24 History tablet,extended release 24 hr nilotinib 150 mg capsule 150 mg PO BID 10/14/20 01/11/24 01/10/24 History polyvinyl alcohol 1.4 % eye drops 1 drp ophthalmic (eye) 5XD PRN Dry 02/09/23 01/11/24 Unknown History (Artificial Tears (polyvinyl Eyes alcohol)) Physical Exam Vital Signs: Vital Signs: Last Vital Signs Temp 98.3 F 01/11/24 13:26 Pulse 85 01/11/24 16:16 Resp 18 01/11/24 16:16 BP 140/69 H 01/11/24 16:16 Pulse Ox 100 01/11/24 14:40 O2 Del Method Room Air 01/11/24 14:40 BMI result Body Mass Index 26.9 Neuro: Other: Normal non focal neuro exam Results Labs 01/11/24 16:46 01/11/24 12:00 Labs: Short CBC 01/11/24 01/11/24 Range/Units 12:00 16:46 WBC 9.6 10.0 (4.8-10.8) X10*3/uL Hgb 12.3 12.0 (12.0-16.0) g/dl Hct 36.4 L 36.9 L (37.0-47.0) % Plt Count 327 D 271 (160-400) X10*3/uL BMP 01/11/24 12:00 Sodium 140 Potassium 4.1 Chloride 107 Carbon Dioxide 24 BUN 13 Creatinine 0.85 Calcium 9.7 D Liver Function 01/11/24 Range/Units 12:00 Total Bilirubin 0.8 (0.0-1.0) mg/dL Direct Bilirubin 0.2 (0.0-0.5) mg/dL AST 22 (5-31) U/L ALT 49 H (0-31) U/L Alkaline Phosphatase 265 H (39-117) U/L Albumin 4.4 (3.5-5.0) g/dL Urine 01/11/24 Range/Units 15:02 Urine Color Yellow Urine Appearance Clear Urine pH 7.0 (5.0-9.0) Ur Specific [place] >= 1.030 H (1.005-1.025) Urine Protein Negative (Neg-Trace) mg/dL Urine Glucose (UA) Negative (Negative) mg/dL Assessment and Plan (1) Brain TIA: Status: Acute Possible posterior circulation TIA with transient diplopia. No other neighborhood signs or symptoms. No recurrence. Has had multiple CTAs of head and neck in last 1 year - all normal and should not be getting these again at least for a few years, because of the reaction she had to the dye Recom. Adjust Coumadin dosage and hook her up to a coumadin clinic. She has small vessel disease with multiple lacunar infarcts that are chronic. 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 Subtherapeutic INR and possible IV contrast reaction. transient double vision concerning for TIA - Admit to telemetry on observation status. High risk for CVA/TIA given subtherapeutic INR with mechanical mitral valve. Neuro and PT/OT consults. Bridging anticoagulation as below. minor hemoptysis - Monitor; give cough suppressant. No signs of PNA. Flu/Covid/RSV negative. contrast reaction - Likely vasovagal-type but also had some allergic features. Supportive care; resolving. subtherapeutic INR - Resume warfarin and bridge with enoxaparin 1 mg/kg until INR 2.5-3.5. - Pt states she does not currently have a PCP or a Coumadin clinic and has been depending on various EDs to get her ED checked. She states she only missed 1 dose of warfarin and that 1 week ago in the [facility] ED, her INR was OK. I find this hard to believe since her INR is only 1.1 today. Needs education, close outpt follow-up, possible referral to our Coumadin clinic vs. VNA services. CAD - ASA, metoprolol succinate CML - nilotinib VTE prophylaxis - warfarin/enoxaparin dispo - likely home tomorrow code status - full I anticipate that the patient will stay at least 2 midnights as an inpatient in the hospital due to the above reasons. It is neither reasonable nor safe to care for them in a less acute setting. Procedures Date of Service Date of Service: 01/11/24
--- NOTE | 2024-01-11 17:45 | HE.PHANOTE ---
patient own Tasigna - Patient brought in 21 capsules of Tasigna. Prescription label states 2 caps twice per day, patient reports taking 1 cap in the morning and 1 cap at night. Order continued how patient is taking medication, Medication will be kept in pharmacy until patient receives a room on the floor.
[2024-01-11] MEDS: Warfarin Sodium 5 MG TABLET PO (19:03)
--- NOTE | 2024-01-11 19:48 | PM.EVENT ---
Event Note Date of Service: 01/11/24 Event Note: Was informed by the nurse that patient wants to leave. Spoke to the patient and she states that she has called her son and would like to go home. Patient is upset that even after telling the provider earlier multiple times that she is allergic to dye, she received dye earlier for imaging. Patient understands the risk of leaving including acute CVA leading to permanent disability, and/or . Patient is competent, has appropriate decision making and is able to verbalize the risks. Patient to sign AMA paperwork. Time Spent With Patient Time: Total time managing care of this patient today ____ minutes.
--- NOTE | 2024-01-11 19:49 | PC.NURSE ---
Patient requesting to speak to to ask several questions about why she is being admitted, Dr. Collier to bedside to speak with patient.
--- NOTE | 2024-01-11 20:15 | PC.NURSE ---
Patient has decided to leave AMA, Dr. Collier aware, confirmed patient was competent to make decision, ED provider made aware. Patient given AMA paperwork, reading it through now to sign, pharmacy messenger Sydney made aware patient leaving AMA, home medication currently stored in pharmacy to be returned to patient.
--- NOTE | 2024-01-12 14:32 | PM.DS ---
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 She presents with acute sudden onset of double vision that happened at 10:00am and has since resolved. Per the ED physician, the patient had not been taking her warfarin due to an insurance issue. The patient denies this is the case. She thinks she missed 1 day of warfarin 3 days ago because she was sick with a cough and expectorated a small amount of blood. She says she was seen in the ED 3 days ago but per our records, it was actually yesterday. Her history is somewhat vague and she states she feels odd due to a reaction to the IV contrast she was given for her CT angio of the head. She states this has happened to her in the past with IV contrast. The ED physician gave her Solu-Medrol and Benadryl as she reported numbness and itching under her tongue, which has since resolved. She was given 1 mg of Ativan after she became briefly unresponsive, which has since resolved. Prior to IV contrast, her only complaint was of the double vision and the cough. No fever, dyspnea, or chest pain. No facial droop, speech difficulty, arm weakness, or leg weakness. In the ED, her INR was 1.1. Neueroimaging showed no acute ICH or CVA. There was no proximsal cerebrovascular occlusion or stenosis. There is encephalomalacia of the R cerebellar hemisphere, and chronic lacunar infarcts of the deep nuclei and cerebellum. She was given 5 mg of warfarin and 70 mg of SQ enoxaparin. Unfortunately, later on 01/11/24, during the hourly shift, she decided to sign out of the hospital against medical advice despite counseling by nursing and the noctunrists on the risks of undiagnosed stroke and subtherapeutic anticoagulation. Time Attestation Discharge Coordination Time (in mins): 35 Quality: Safe Use of Opioids Does Pt have an Active Cancer Diagnosis on the Problem List?: No Quality: Stroke Does the patient have a stroke diagnosis?: No Physical Exam Vital Signs: Vital Signs: Last Vital Signs Temp 97.9 F 01/11/24 20:20 Pulse 91 01/11/24 20:20 Resp 16 01/11/24 20:20 BP 125/61 01/11/24 20:20 Pulse Ox 97 01/11/24 20:20 O2 Del Method Room Air 01/11/24 20:20 BMI result Body Mass Index 26.9 Gen: in no acute distress HEENT: sclera anicteric, moist mucus membranes Neck: supple Lungs: clear to auscultation bilaterally Heart: regular rate and rhythm, mechanical S1, no murmurs noted Abd: soft, non-tender, non-distended Ext: no edema Skin: warm/well-perfused Neuro: alert and oriented x3, no visual deficit, no facial droop, no pronator drift, no focal weakness Psych: appropriate affect DS: Data Data Completed and Pending Completed studies during hospitalization [Text1]: Laboratory Results WBC 10.0 X10*3/uL (4.8-10.8) 01/11/24 16:46 RBC 4.13 X10*6/uL (4.20-5.50) L 01/11/24 16:46 Hgb 12.0 g/dl (12.0-16.0) 01/11/24 16:46 Hct 36.9 % (37.0-47.0) L 01/11/24 16:46 MCV 89.3 fL (80.0-98.0) 01/11/24 16:46 MCH 29.1 pg (27.0-33.0) 01/11/24 16:46 MCHC 32.5 g/dl (31.0-35.0) 01/11/24 16:46 RDW 15.5 % (11.0-16.0) 01/11/24 16:46 Plt Count 271 X10*3/uL (160-400) 01/11/24 16:46 MPV 9.3 fL (9.4-12.3) L 01/11/24 16:46 Immature Gran % (Auto) 0.5 % (0.0-0.4) H 01/11/24 12:00 Neut % (Auto) 72.8 % (45-73) 01/11/24 12:00 Lymph % (Auto) 18.3 % (20-40) L 01/11/24 12:00 Jerome % (Auto) 6.4 % (2-11) 01/11/24 12:00 Eos % (Auto) 1.9 % (0-4) 01/11/24 12:00 Baso % (Auto) 0.1 % (0-2) 01/11/24 12:00 Lymph # (Auto) 1.8 X10*3/uL (1.2-4.9) 01/11/24 12:00 Jerome # (Auto) 0.6 X10*3/uL (0.1-1.2) 01/11/24 12:00 Eos # (Auto) 0.2 X10*3/uL (0.0-0.4) 01/11/24 12:00 Baso # (Auto) 0.0 X10*3/uL (0.0-0.2) 01/11/24 12:00 Abs Immat Gran (auto) 0.05 X10*3/uL (0.00-0.03) H 01/11/24 12:00 Absolute Neuts (auto) 7.0 x10*3/uL (2.0-8.3) 01/11/24 12:00 Absolute Nucleated RBC 0.000 X10*3/uL (0.0-0.012) 01/11/24 16:46 Nucleated RBC % (auto) 0.0 /100WBC (0.0-0.2) 01/11/24 16:46 PT 13.2 SEC (11.1-13.3) 01/11/24 15:24 INR 1.1 (0.9-1.1) 01/11/24 15:24 APTT 36.6 SEC (26.0-36.8) 01/11/24 15:24 Sodium 140 mmol/L (135-145) 01/11/24 12:00 Potassium 4.1 mmol/L (3.3-5.1) 01/11/24 12:00 Chloride 107 mmol/L (96-108) 01/11/24 12:00 Carbon Dioxide 24 mmol/L (22-29) 01/11/24 12:00 Anion Gap 13 (12-20) 01/11/24 12:00 BUN 13 mg/dL (9-16) 01/11/24 12:00 Creatinine 0.85 mg/dL (0.5-1.4) 01/11/24 12:00 Estim Creat Clear Calc 69.6 01/11/24 12:00 Estimated GFR > 60 01/11/24 12:00 Random Glucose 98 mg/dL (60-115) 01/11/24 12:00 Calcium 9.7 mg/dL (8.4-10.2) D 01/11/24 12:00 Total Bilirubin 0.8 mg/dL (0.0-1.0) 01/11/24 12:00 Direct Bilirubin 0.2 mg/dL (0.0-0.5) 01/11/24 12:00 AST 22 U/L (5-31) 01/11/24 12:00 ALT 49 U/L (0-31) H 01/11/24 12:00 Alkaline Phosphatase 265 U/L (39-117) H 01/11/24 12:00 Troponin I High Sens < 2.7 ng/L (<3.5-17.0) D 01/11/24 12:00 B-Natriuretic Peptide 40 pg/mL (<100) 01/11/24 12:00 Total Protein 8.8 g/dL (6.5-8.0) H 01/11/24 12:00 Albumin 4.4 g/dL (3.5-5.0) 01/11/24 12:00 Lipase 26 U/L (8-78) 01/11/24 12:00 Urine Color Yellow 01/11/24 15:02 Urine Appearance Clear 01/11/24 15:02 Urine pH 7.0 (5.0-9.0) 01/11/24 15:02 Ur Specific [place] >= 1.030 (1.005-1.025) H 01/11/24 15:02 Urine Protein Negative mg/dL (Neg-Trace) 01/11/24 15:02 Urine Glucose (UA) Negative mg/dL (Negative) 01/11/24 15:02 Urine Ketones Negative mg/dL (Negative) 01/11/24 15:02 Urine Blood Negative (Negative) 01/11/24 15:02 Urine Nitrite Negative (Negative) 01/11/24 15:02 Ur Leukocyte Esterase Small (1+) (Negative) H 01/11/24 15:02 Urine RBC 0-2 /HPF (0-2) 01/11/24 15:02 Urine WBC 6-10 /HPF (0-5) H 01/11/24 15:02 Ur Squamous Epith Cells 11-20 /HPF (0-2) 01/11/24 15:02 Urine Bacteria 1+ (None Seen) 01/11/24 15:02 Hyaline Casts 0-2 /LPF (0-2) 01/11/24 15:02 Influenza Type A (PCR) NEGATIVE (Negative) 01/11/24 12:01 Influenza Type B (PCR) NEGATIVE (Negative) 01/11/24 12:01 RSV RNA Qual (PCR) NEGATIVE (Negative) 01/11/24 12:01 SARS-CoV-2 RNA (RT-PCR) NEGATIVE (Negative) 01/11/24 12:01 Impressions Chest X-Ray 01/11/24 12:42 IMPRESSION: No acute cardiopulmonary disease. Stable appearance of the heart and lungs. Head CT 01/11/24 13:17 IMPRESSION: 1. No evidence of acute intracranial hemorrhage or edematous territorial infarction. 2. Chronic encephalomalacia of the right cerebellar hemisphere. Chronic lacunar infarcts of the deep nuclei and cerebellum. Mild underlying microangiopathy. 3. CTA of the head and neck without proximal occlusion or flow-limiting stenosis. Head/Neck CTA 01/11/24 14:26 IMPRESSION: 1. No evidence of acute intracranial hemorrhage or edematous territorial infarction. 2. Chronic encephalomalacia of the right cerebellar hemisphere. Chronic lacunar infarcts of the deep nuclei and cerebellum. Mild underlying microangiopathy. 3. CTA of the head and neck without proximal occlusion or flow-limiting stenosis. Discharge Plan Discharge Patient Disposition: Left Against Medical Advice Discharge Diagnosis: TIA, subtherapeutic INR Referrals: Physician,Unknown J [Primary Care Provider] - 1 Week Discharge Medications: No Action warfarin 5 mg tablet 5 mg PO DAILY Qty: 90 0RF Protocol: Dose Management Condition: Wednesday (Week One) Dose/Route: 10 mg Instruction: 2 x 5 mg tablets Condition: Wednesday Dose/Route: 10 mg Instruction: 2 x 5 mg tablets Condition: Wednesday Dose/Route: 10 mg Instruction: 2 x 5 mg tablets Condition: Wednesday Dose/Route: 10 mg Instruction: 2 x 5 mg tablets Condition: Dose/Route: 10 mg Instruction: 2 x 5 mg tablets Condition: Wednesday Dose/Route: 10 mg Instruction: 2 x 5 mg tablets Condition: Wednesday Dose/Route: 10 mg Instruction: 2 x 5 mg tablets Condition: Wednesday (Week Two) Dose/Route: 10 mg Instruction: 2 x 5 mg tablets Condition: Wednesday Dose/Route: 10 mg Instruction: 2 x 5 mg tablets Condition: Wednesday Dose/Route: 10 mg Instruction: 2 x 5 mg tablets Condition: Wednesday Dose/Route: 10 mg Instruction: 2 x 5 mg tablets Condition: Dose/Route: 10 mg Instruction: 2 x 5 mg tablets Condition: Wednesday Dose/Route: 10 mg Instruction: 2 x 5 mg tablets Condition: Wednesday Dose/Route: 10 mg Instruction: 2 x 5 mg tablets Protocol Text: Adjustment Start Date: Wednesday10/14/20 INR Value: 3.3 INR Date: 10/14/20 Recheck Date: 10/28/20 polyvinyl alcohol [Artificial Tears (polyvin alc)] 1.4 % Drops 1 drp OPHTHALMIC (EYE) 5XD PRN (Reason: Dry Eyes) nilotinib 150 mg capsule 150 mg PO BID metoprolol succinate 50 mg tablet extended release 24 hr 50 mg PO DAILY Discharge Orders: Discharge Order (Routine); Ordered 01/12/24 Ordered By: Romulo Hooks Stand Alone Forms: Against Medical Advice Print Language: Welsh Care Plan Goals: stroke prevention Health Concerns: TIA, subtherapeutic INR LEFT AGAINST MEDICAL ADVICE Plan of Treatment: RETURN TO THE [facility] Assessment: See Discharge Summary. Discharge Date/Time: 01/11/24 20:20
== END 2024-01-11 20:20 | disposition left against medical advice (07) ==
LOC: HO.ED 15:00 → HO.EDOVER 16:05
PROVIDERS: Admitting Provider Family Medicine; Emergency Provider Emergency Medicine; Visit Provider Family Medicine
DX: G45.9 Transient cerebral ischemic attack, unspecified (principal); R51.9 Headache, unspecified; T50.8X1A Poisoning by diagnostic agents, accidental (unintentional), initial encounter; R20.0 Anesthesia of skin; Y92.238 Other place in hospital as the place of occurrence of the external cause; I25.10 Atherosclerotic heart disease of native coronary artery without angina pectoris; I25.2 Old myocardial infarction; H53.2 Diplopia; Z85.6 Personal history of leukemia; R79.1 Abnormal coagulation profile; J40 Bronchitis, not specified as acute or chronic; R06.02 Shortness of breath; R04.2 Hemoptysis; Z86.73 Personal history of transient ischemic attack (TIA), and cerebral infarction without residual deficits; Z79.01 Long term (current) use of anticoagulants; Z91.041 Radiographic dye allergy status; Z53.29 Procedure and treatment not carried out because of patient's decision for other reasons; Z79.899 Other long term (current) drug therapy
CPT/HCPCS: 0241U; 36415; 70450; 70496; 70498; 71045; 80048; 80076; 81001; 83690; 83880; 84484; 85025; 85027; 85610; 85730; 87086; 92950; 93005; 96361; 96374; 96375; 99222; 99285; J1200; J1650; J2060; J2919; Q9967

== ENCOUNTER → 2024-01-11 11:46 | Outpatient (BNV) | payer MEDICAID, SELFPAY | PROVIDERS: Admitting Provider Family Medicine; Emergency Provider Emergency Medicine; Visit Provider Internal Medicine | DX: R94.31 Abnormal electrocardiogram [ECG] [EKG] (principal); H53.2 Diplopia | CPT/HCPCS: 93010 ==

== ENCOUNTER → 2024-01-11 15:47 | Outpatient (BNV) | payer MEDICAID, SELFPAY | PROVIDERS: Admitting Provider Family Medicine; Emergency Provider Emergency Medicine; Visit Provider Family Medicine | DX: G45.9 Transient cerebral ischemic attack, unspecified (principal); R79.1 Abnormal coagulation profile; Z53.29 Procedure and treatment not carried out because of patient's decision for other reasons | CPT/HCPCS: 99236; 99499 ==

== ENCOUNTER → 2024-01-11 15:47 | Outpatient (BNV) | payer MEDICAID, SELFPAY | PROVIDERS: Admitting Provider Family Medicine; Emergency Provider Emergency Medicine; Visit Provider Psychiatry & Neurology Neurology | DX: G45.9 Transient cerebral ischemic attack, unspecified (principal); R79.1 Abnormal coagulation profile | CPT/HCPCS: 99222 ==